=== PATIENT | male | born 1940 | race Caucasian/White ===

== ENCOUNTER 2017-11-13 15:16 | Inpatient (IN) | payer MEDICARE, OTHER ==
[2017-11-13 15:43] LABS: MODE ROOM AIR; MetHgb Venous 0.3 %; Sample Type Blood venous; Site VENOUS LINE; Venous COHb 0.6 %; Venous Oxygen Sat 68.6 mmHG (55.0-75.0); Venous Total Hemglobin 15.6 g/dl
[2017-11-13 15:48] LABS: WHITE BLOOD COUNT 15.7 10^3/ul (4.8-10.8)
[2017-11-13 15:48] LABS: ABNORMAL IP MESSAGE 1; HEMATOCRIT 41.5 % (42.0-52.0); HEMOGLOBIN 14.5 g/dl (14.0-18.0); MEAN CORPUSCULAR HEMOGLOBIN 32.1 pg (29.0-33.0); MEAN CORPUSCULAR HGB CONC 34.9 g/dl (32.0-37.0); MEAN CORPUSCULAR VOLUME 91.8 fl (82.0-101.0); PLATELET COUNT 213 10^3/UL (140-415); POSITIVE DIFF @See below; RED BLOOD COUNT 4.52 10^6/ul (4.70-6.10); RED CELL DISTRIBUTION WIDTH 12.4 % (11.5-14.5)
[2017-11-13 15:50] LABS: ADD MAN DIFF? YES
[2017-11-13] MEDS: SOD CHLORIDE 0.9% 650 ML IV (16:02)
[2017-11-13 16:08] LABS: ALANINE AMINOTRANSFERASE 38 IU/L (13-69); ALBUMIN 4.6 g/dl (3.3-4.9); ALBUMIN/GLOBULIN RATIO 1.64; ALKALINE PHOSPHATASE 82 IU/L (42-121); ANION GAP 33 (8-16); ASPARTATE AMINO TRANSFERASE 28 IU/L (15-46); BILIRUBIN,INDIRECT 0.7 mg/dl (0-1.1); BILIRUBIN,TOTAL 0.7 mg/dl (0.2-1.3); BLOOD UREA NITROGEN 20 mg/dl (7-20); CALCIUM 9.2 mg/dl (8.4-10.2); CARBON DIOXIDE 13 mmol/L (21-31); CHLORIDE 87 mmol/L (97-110); CREATINE KINASE 45 IU/L (23-200); CREATININE 0.92 mg/dl (0.61-1.24); MAGNESIUM 1.6 mg/dl (1.7-2.5); PHOSPHORUS 4.4 mg/dl (2.5-4.9); POTASSIUM 4.6 mmol/L (3.5-5.1); SODIUM 128 mmol/L (135-144); TOTAL PROTEIN 7.4 g/dl (6.1-8.1)
[2017-11-13 16:13] LABS: BAND NEUTROPHILS #M 0.6 10^3/ul (0.0-0.6); BAND NEUTROPHILS % (M) 4 % (0-4); GIANT THROMBO% (M) 1 % (0-0); LYMPHOCYTES #M 0.6 10^3/ul (0.8-2.9); LYMPHOCYTES % (M) 4 % (15-51); MONOCYTE #M 0.3 10^3/ul (0.3-0.9); MONOCYTES % (M) 2 % (0-11); PLATELET ESTIMATE NORMAL; SEG NEUT #M 14.2 10^3/ul (1.6-7.5); SEGMENTED NEUTROPHILS (M) % 90 % (39-77); SMUDGE%M 5 % (0-0)
[2017-11-13 16:17] LABS: GLUCOSE 469 mg/dl (70-220)
[2017-11-13 16:18] LABS: TROPONIN-I < 0.010 ng/ml (0.000-0.120)
[2017-11-13] MEDS ORDERED: SODIUM CHLORIDE 23.4% 77 MEQ, POTASSIUM CHLORIDE 30 MEQ in DEXTROSE 10% 1,000 ML IV (17:01)
[2017-11-13] MEDS ORDERED: SODIUM CHLORIDE 23.4% 77 MEQ in DEXTROSE 10% 1,000 ML IV (17:01)
[2017-11-13] MEDS ORDERED: SODIUM CHLORIDE 23.4% 77 MEQ, POTASSIUM CHLORIDE 40 MEQ in DEXTROSE 10% 1,000 ML IV (17:01)
[2017-11-13] MEDS ORDERED: SOD CHLORIDE 0.9% 1,000 ML IV ×2 (17:01→18:34)
[2017-11-13] MEDS ORDERED: POTASSIUM CHLORIDE 40 MEQ in SOD CHLORIDE 0.9% 1,000 ML IV ×2 (17:01→18:34)
[2017-11-13] MEDS ORDERED: DEXTROSE 50% 50 ML SYRINGE IV ×4 (17:30→19:00)
[2017-11-13] MEDS ORDERED: ONDANSETRON 4 MG INJ (17:31)
[2017-11-13 17:42] LABS: ADD UMIC YES; UR ASCORBIC ACID NEGATIVE (NEGATIVE); UR BILIRUBIN (Dip) NEGATIVE (NEGATIVE); UR BLOOD (Dip) 1+ mg/dL (NEGATIVE); UR CLARITY CLEAR (CLEAR); UR COLOR STRAW (YELLOW); UR GLUCOSE (Dip) 3+ mg/dL (NEGATIVE); UR KETONES (Dip) 2+ mg/dL (NEGATIVE); UR LEUKOCYTE ESTERASE (Dip) NEGATIVE Leu/ul (NEGATIVE); UR NITRITE (Dip) NEGATIVE (NEGATIVE); UR RBC 0 /HPF (0-5); UR SPECIFIC GRAVITY (Dip) 1.021 (1.003-1.030); UR TOTAL PROTEIN (Dip) 1+ mg/dl (NEGATIVE); UR UROBILINOGEN (Dip) NEGATIVE (NEGATIVE); UR WBC 0 /HPF (0-5)
[2017-11-13] MEDS: LACTATED RINGER'S 630 ML IV (17:43)
[2017-11-13] MEDS: MAGNESIUM SULFATE 1 GM/D5W 100 ML IVPB (18:09)
[2017-11-13] MEDS: ONDANSETRON (ODT) 4 MG TAB ODT (18:10)
[2017-11-13] MEDS: INSULIN REGULAR, HUMAN 100 UNIT in SOD CHLORIDE 0.9% 100 ML IV (18:25)
[2017-11-13] MEDS ORDERED: morphine 2 MG INJ IV (18:30)
[2017-11-13] MEDS ORDERED: ACETAMINOPHEN 325 MG TAB PO (18:30)
[2017-11-13] MEDS ORDERED: NACL 0.9% 3 ML SYG IV (18:30)
[2017-11-13] MEDS ORDERED: VANCOMYCIN IV PER PHARMACY XX (19:00)
[2017-11-13] MEDS: ACCU-CHEK XX ×5 (19:00→23:28)
[2017-11-13 19:16] LABS: MODE ROOM AIR; Sample Type Blood venous; Site VENOUS LINE
[2017-11-13 19:24] LABS: MetHgb Venous 0.5 %; Venous COHb 0.4 %; Venous Oxygen Sat 59.5 mmHG (55.0-75.0); Venous Total Hemglobin 14.3 g/dl
[2017-11-13] MEDS: POTASSIUM CHLORIDE 30 MEQ in SOD CHLORIDE 0.9% 1,000 ML IV (19:33)
[2017-11-13 19:43] LABS: LIPASE 21 U/L (23-300)
[2017-11-13 19:44] LABS: ANION GAP 32 (8-16); BLOOD UREA NITROGEN 20 mg/dl (7-20); CALCIUM 8.3 mg/dl (8.4-10.2); CHLORIDE 90 mmol/L (97-110); CREATININE 0.87 mg/dl (0.61-1.24); MAGNESIUM 2.1 mg/dl (1.7-2.5); PHOSPHORUS 4.8 mg/dl (2.5-4.9); POTASSIUM 4.5 mmol/L (3.5-5.1); SODIUM 126 mmol/L (135-144)
[2017-11-13 19:44] LABS: LACTIC ACID 2.3 mmol/L (0.5-2.0)
[2017-11-13 19:56] LABS: CARBON DIOXIDE 9 mmol/L (21-31); GLUCOSE 602 mg/dl (70-220)
[2017-11-13] MEDS: SOD CHLORIDE 0.9% 500 ML IV (20:12)
[2017-11-13] MEDS: METOCLOPRAMIDE 10 MG INJ IV (20:40)
[2017-11-13] MEDS: PANTOPRAZOLE IV 80 MG in SOD CHLORIDE 0.9% 100 ML IVPB (20:49)
[2017-11-13 21:07] LABS: MODE ROOM AIR; MetHgb Venous 0.7 %; Sample Type Blood venous; Site VENOUS LINE; Venous COHb 0.3 %; Venous Fraction OxyHgb 57.4 %; Venous Total Hemglobin 9.7 g/dl
[2017-11-13] MEDS: PANTOPRAZOLE IV 80 MG in SOD CHLORIDE 0.9% 100 ML IV (21:27)
[2017-11-13 22:01] LABS: ANION GAP 22 (8-16); BLOOD UREA NITROGEN 17 mg/dl (7-20); CALCIUM 6.3 mg/dl (8.4-10.2); CHLORIDE 108 mmol/L (97-110); CREATININE 0.61 mg/dl (0.61-1.24); GLUCOSE 363 mg/dl (70-220); MAGNESIUM 1.5 mg/dl (1.7-2.5); PHOSPHORUS 3.2 mg/dl (2.5-4.9); POTASSIUM 3.5 mmol/L (3.5-5.1); SODIUM 133 mmol/L (135-144)
[2017-11-13 22:07] LABS: CARBON DIOXIDE 7 mmol/L (21-31)
[2017-11-13 22:13] LABS: HEMATOCRIT 42.5 % (42.0-52.0); HEMOGLOBIN 13.9 g/dl (14.0-18.0)
[2017-11-13] MEDS: SODIUM CHLORIDE 23.4% 77 MEQ, POTASSIUM CHLORIDE 30 MEQ in DEXTROSE 10% 1,000 ML IV (23:35)
[2017-11-13] MEDS: PIPER-TAZO 3.375 GM IV (PMX) 100 ML IVPB (23:49)
[2017-11-14] MEDS: ACCU-CHEK XX ×24 (00:06→23:00)
[2017-11-14 00:30] LABS: LIPASE 22 U/L (23-300)
[2017-11-14] MEDS: VANCOMYCIN 1 GM 250 ML IVPB ×3 (00:41→22:53)
[2017-11-14 02:08] LABS: ANION GAP 21 (8-16); BLOOD UREA NITROGEN 21 mg/dl (7-20); CALCIUM 7.9 mg/dl (8.4-10.2); CARBON DIOXIDE 11 mmol/L (21-31); CHLORIDE 105 mmol/L (97-110); CREATININE 0.75 mg/dl (0.61-1.24); GLUCOSE 297 mg/dl (70-220); MAGNESIUM 1.7 mg/dl (1.7-2.5); PHOSPHORUS 2.5 mg/dl (2.5-4.9); POTASSIUM 4.2 mmol/L (3.5-5.1); SODIUM 133 mmol/L (135-144)
[2017-11-14] MEDS: POTASSIUM CHLORIDE 30 MEQ in SOD CHLORIDE 0.9% 1,000 ML IV ×2 (02:36→12:25)
[2017-11-14] MEDS: PANTOPRAZOLE IV 80 MG in SOD CHLORIDE 0.9% 100 ML IV (04:39)
[2017-11-14] MEDS: LEVOTHYROXINE 100 MCG VIAL IV (05:35)
[2017-11-14] MEDS: PIPER-TAZO 3.375 GM IV (PMX) 100 ML IVPB ×3 (05:35→18:58)
[2017-11-14 05:37] LABS: ADD MAN DIFF? NO
[2017-11-14 05:51] LABS: WHITE BLOOD COUNT 16.6 10^3/ul (4.8-10.8)
[2017-11-14 05:51] LABS: BASOPHILS % 0.2 % (0.0-2.0); HEMATOCRIT 39.9 % (42.0-52.0); HEMOGLOBIN 13.4 g/dl (14.0-18.0); LYMPHOCYTES # 1.4 10^3/ul (0.8-2.9); LYMPHOCYTES % 8.2 % (15.0-51.0); MEAN CORPUSCULAR HEMOGLOBIN 31.1 pg (29.0-33.0); MEAN CORPUSCULAR HGB CONC 33.6 g/dl (32.0-37.0); MEAN CORPUSCULAR VOLUME 92.6 fl (82.0-101.0); MEAN PLATELET VOLUME 10.8 fl (7.4-10.4); MONOCYTE # 1.1 10^3/ul (0.3-0.9); MONOCYTES % 6.6 % (0.0-11.0); NEUTROPHIL # 13.9 10^3/ul (1.6-7.5); NEUTROPHILS % 83.8 % (39.0-77.0); PLATELET COUNT 182 10^3/UL (140-415); RED BLOOD COUNT 4.31 10^6/ul (4.70-6.10); RED CELL DISTRIBUTION WIDTH 12.1 % (11.5-14.5)
[2017-11-14 06:47] LABS: ALANINE AMINOTRANSFERASE 28 IU/L (13-69); ALBUMIN 3.4 g/dl (3.3-4.9); ALBUMIN/GLOBULIN RATIO 1.21; ALKALINE PHOSPHATASE 67 IU/L (42-121); ANION GAP 16 (8-16); ASPARTATE AMINO TRANSFERASE 26 IU/L (15-46); BILIRUBIN,INDIRECT 0.6 mg/dl (0-1.1); BILIRUBIN,TOTAL 0.6 mg/dl (0.2-1.3); BLOOD UREA NITROGEN 19 mg/dl (7-20); CALCIUM 8.1 mg/dl (8.4-10.2); CARBON DIOXIDE 16 mmol/L (21-31); CHLORIDE 107 mmol/L (97-110); CREATININE 0.71 mg/dl (0.61-1.24); GLUCOSE 265 mg/dl (70-220); MAGNESIUM 1.7 mg/dl (1.7-2.5); POTASSIUM 4.4 mmol/L (3.5-5.1); SODIUM 135 mmol/L (135-144); TOTAL PROTEIN 6.2 g/dl (6.1-8.1)
[2017-11-14] MEDS: SODIUM CHLORIDE 23.4% 77 MEQ, POTASSIUM CHLORIDE 30 MEQ in DEXTROSE 10% 1,000 ML IV ×3 (09:49→20:15)
[2017-11-14] MEDS: INSULIN REGULAR, HUMAN 100 UNIT in SOD CHLORIDE 0.9% 99 ML IV (09:53)
[2017-11-14] MEDS: SODIUM CHLORIDE 23.4% 77 MEQ in DEXTROSE 10% 1,000 ML IV (10:52)
[2017-11-14 11:48] LABS: ANION GAP 10 (8-16); BLOOD UREA NITROGEN 14 mg/dl (7-20); CALCIUM 7.5 mg/dl (8.4-10.2); CARBON DIOXIDE 18 mmol/L (21-31); CHLORIDE 108 mmol/L (97-110); CREATININE 0.63 mg/dl (0.61-1.24); GLUCOSE 149 mg/dl (70-220); MAGNESIUM 1.6 mg/dl (1.7-2.5); PHOSPHORUS 1.3 mg/dl (2.5-4.9); POTASSIUM 4.4 mmol/L (3.5-5.1); SODIUM 132 mmol/L (135-144)
[2017-11-14] MEDS: SUCRALFATE (100 MG/ML) 10ML CUP PO ×3 (13:00→21:42)
[2017-11-14] MEDS: MAGNESIUM SULFATE 2 GM/50 ML 50 ML IVPB (13:08)
[2017-11-14 13:55] LABS: ANION GAP 11 (8-16); BLOOD UREA NITROGEN 13 mg/dl (7-20); CALCIUM 7.3 mg/dl (8.4-10.2); CARBON DIOXIDE 18 mmol/L (21-31); CHLORIDE 107 mmol/L (97-110); CREATININE 0.59 mg/dl (0.61-1.24); GLUCOSE 189 mg/dl (70-220); MAGNESIUM 1.5 mg/dl (1.7-2.5); PHOSPHORUS 1.2 mg/dl (2.5-4.9); SODIUM 132 mmol/L (135-144)
[2017-11-14 15:22] LABS: AADO2 Venous 38.7 mmHg; MODE ROOM AIR; MetHgb Venous 0.1 %; Site OTHER; Venous COHb 0.8 %; Venous Fraction OxyHgb 95.7 %; Venous Oxygen Sat 96.6 mmHG (55.0-75.0); Venous Total Hemglobin 14.8 g/dl
[2017-11-14 15:47] LABS: Sample Type Blood venous
[2017-11-14] MEDS: PANTOPRAZOLE 40 MG INJ IV (18:31)
[2017-11-14 18:44] LABS: MODE ROOM AIR; MetHgb Venous 0.2 %; Sample Type Blood venous; Site OTHER; Venous COHb 1.1 %; Venous Fraction OxyHgb 63.4 %; Venous Total Hemglobin 14.1 g/dl
[2017-11-14 18:47] LABS: ANION GAP 12 (8-16); BLOOD UREA NITROGEN 10 mg/dl (7-20); CALCIUM 7.5 mg/dl (8.4-10.2); CARBON DIOXIDE 18 mmol/L (21-31); CHLORIDE 106 mmol/L (97-110); CREATININE 0.56 mg/dl (0.61-1.24); GLUCOSE 153 mg/dl (70-220); MAGNESIUM 1.9 mg/dl (1.7-2.5); PHOSPHORUS 1.2 mg/dl (2.5-4.9); POTASSIUM 5.5 mmol/L (3.5-5.1); SODIUM 130 mmol/L (135-144)
[2017-11-14 23:02] LABS: ANION GAP 13 (8-16); BLOOD UREA NITROGEN 7 mg/dl (7-20); CALCIUM 7.6 mg/dl (8.4-10.2); CARBON DIOXIDE 18 mmol/L (21-31); CHLORIDE 105 mmol/L (97-110); CREATININE 0.57 mg/dl (0.61-1.24); GLUCOSE 160 mg/dl (70-220); PHOSPHORUS 1.1 mg/dl (2.5-4.9); SODIUM 132 mmol/L (135-144)
[2017-11-15] MEDS: ACCU-CHEK XX ×23 (00:09→23:44)
[2017-11-15] MEDS: PIPER-TAZO 3.375 GM IV (PMX) 100 ML IVPB ×4 (00:13→18:07)
[2017-11-15 01:20] LABS: MODE ROOM AIR; MetHgb Venous 0.4 %; Sample Type Blood venous; Site Right Brachial; Venous COHb 0.3 %; Venous Fraction OxyHgb 50.6 %; Venous Total Hemglobin 14.8 g/dl
[2017-11-15 01:30] LABS: ANION GAP 12 (8-16); BLOOD UREA NITROGEN 5 mg/dl (7-20); CALCIUM 7.4 mg/dl (8.4-10.2); CARBON DIOXIDE 20 mmol/L (21-31); CHLORIDE 105 mmol/L (97-110); CREATININE 0.57 mg/dl (0.61-1.24); GLUCOSE 171 mg/dl (70-220); MAGNESIUM 1.9 mg/dl (1.7-2.5); PHOSPHORUS 0.9 mg/dl (2.5-4.9); POTASSIUM 4.2 mmol/L (3.5-5.1); SODIUM 133 mmol/L (135-144)
[2017-11-15] MEDS: SODIUM CHLORIDE 23.4% 77 MEQ, POTASSIUM CHLORIDE 40 MEQ in DEXTROSE 10% 1,000 ML IV (01:41)
[2017-11-15] MEDS: INSULIN REGULAR, HUMAN 100 UNIT in SOD CHLORIDE 0.9% 99 ML IV (01:45)
[2017-11-15] MEDS: SODIUM CHLORIDE 23.4% 77 MEQ, POTASSIUM CHLORIDE 30 MEQ in DEXTROSE 10% 1,000 ML IV ×2 (02:28→07:08)
[2017-11-15 05:06] LABS: MODE ROOM AIR; MetHgb Venous 0.3 %; Sample Type Blood venous; Site Right Brachial; Venous COHb 0.3 %; Venous Oxygen Sat 62.4 mmHG (55.0-75.0); Venous Total Hemglobin 14.3 g/dl
[2017-11-15 05:31] LABS: ADD MAN DIFF? NO
[2017-11-15 05:41] LABS: BASOPHILS % 0.1 % (0.0-2.0); EOSINOPHILS % 0.2 % (0.0-7.0); HEMATOCRIT 38.2 % (42.0-52.0); HEMOGLOBIN 13.3 g/dl (14.0-18.0); LYMPHOCYTES % 9.2 % (15.0-51.0); MEAN CORPUSCULAR HEMOGLOBIN 31.3 pg (29.0-33.0); MEAN CORPUSCULAR HGB CONC 34.8 g/dl (32.0-37.0); MEAN CORPUSCULAR VOLUME 89.9 fl (82.0-101.0); MEAN PLATELET VOLUME 10.7 fl (7.4-10.4); MONOCYTE # 0.8 10^3/ul (0.3-0.9); MONOCYTES % 6.9 % (0.0-11.0); PLATELET COUNT 171 10^3/UL (140-415); RED BLOOD COUNT 4.25 10^6/ul (4.70-6.10); RED CELL DISTRIBUTION WIDTH 12.5 % (11.5-14.5)
[2017-11-15 05:41] LABS: WHITE BLOOD COUNT 10.8 10^3/ul (4.8-10.8)
[2017-11-15] MEDS: LEVOTHYROXINE 100 MCG VIAL IV (05:56)
[2017-11-15] MEDS: PANTOPRAZOLE 40 MG INJ IV ×2 (05:56→18:06)
[2017-11-15 06:01] LABS: ANION GAP 12 (8-16); BLOOD UREA NITROGEN 5 mg/dl (7-20); CALCIUM 7.6 mg/dl (8.4-10.2); CARBON DIOXIDE 22 mmol/L (21-31); CHLORIDE 105 mmol/L (97-110); CREATININE 0.55 mg/dl (0.61-1.24); GLUCOSE 158 mg/dl (70-220); MAGNESIUM 1.8 mg/dl (1.7-2.5); PHOSPHORUS 0.8 mg/dl (2.5-4.9); POTASSIUM 3.9 mmol/L (3.5-5.1); SODIUM 135 mmol/L (135-144)
[2017-11-15] MEDS ORDERED: INSULIN HUMAN REGULAR 100 UNIT in SOD CHLORIDE 0.9% 99 ML IV (09:00)
[2017-11-15] MEDS ORDERED: DEXTROSE 50% 50 ML SYRINGE IV ×4 (09:00→10:30)
[2017-11-15] MEDS: SUCRALFATE (100 MG/ML) 10ML CUP PO ×4 (09:11→20:03)
[2017-11-15] MEDS: DEXTROSE 5%-0.45% NACL 1,000 ML IV ×2 (09:56→20:07)
[2017-11-15 11:10] LABS: VANCOMYCIN,TROUGH 12.2 ug/ml (10.0-20.0)
[2017-11-15] MEDS: INSULIN HUMAN REGULAR 100 UNIT in SOD CHLORIDE 0.9% 99 ML IV (11:28)
[2017-11-15] MEDS: VANCOMYCIN 1 GM 250 ML IVPB ×2 (11:58→22:42)
[2017-11-16] MEDS: ACCU-CHEK XX ×15 (00:30→14:20)
[2017-11-16] MEDS: PIPER-TAZO 3.375 GM IV (PMX) 100 ML IVPB ×3 (00:31→14:20)
[2017-11-16] MEDS: PANTOPRAZOLE 40 MG INJ IV ×2 (05:16→18:02)
[2017-11-16] MEDS: LEVOTHYROXINE 100 MCG VIAL IV (05:16)
[2017-11-16] MEDS: DEXTROSE 5%-0.45% NACL 1,000 ML IV (05:20)
[2017-11-16 06:00] LABS: ADD MAN DIFF? NO
[2017-11-16 06:22] LABS: BASOPHILS % 0.3 % (0.0-2.0); EOSINOPHILS # 0.1 10^3/ul (0.0-0.5); EOSINOPHILS % 1.2 % (0.0-7.0); HEMATOCRIT 34.1 % (42.0-52.0); LYMPHOCYTES # 1.5 10^3/ul (0.8-2.9); LYMPHOCYTES % 19.8 % (15.0-51.0); MEAN CORPUSCULAR HEMOGLOBIN 30.7 pg (29.0-33.0); MEAN CORPUSCULAR HGB CONC 35.2 g/dl (32.0-37.0); MEAN CORPUSCULAR VOLUME 87.2 fl (82.0-101.0); MEAN PLATELET VOLUME 11.1 fl (7.4-10.4); MONOCYTE # 0.7 10^3/ul (0.3-0.9); MONOCYTES % 9.3 % (0.0-11.0); NEUTROPHIL # 5.1 10^3/ul (1.6-7.5); PLATELET COUNT 159 10^3/UL (140-415); RED BLOOD COUNT 3.91 10^6/ul (4.70-6.10)
[2017-11-16 06:22] LABS: WHITE BLOOD COUNT 7.3 10^3/ul (4.8-10.8)
[2017-11-16 06:40] LABS: ANION GAP 8 (8-16); BLOOD UREA NITROGEN 3 mg/dl (7-20); CALCIUM 7.2 mg/dl (8.4-10.2); CARBON DIOXIDE 25 mmol/L (21-31); CHLORIDE 106 mmol/L (97-110); GLUCOSE 143 mg/dl (70-220); MAGNESIUM 1.5 mg/dl (1.7-2.5); PHOSPHORUS 0.8 mg/dl (2.5-4.9); SODIUM 136 mmol/L (135-144)
[2017-11-16 07:12] LABS: POTASSIUM 2.9 mmol/L (3.5-5.1)
[2017-11-16] MEDS: SUCRALFATE (100 MG/ML) 10ML CUP PO ×4 (08:37→20:09)
[2017-11-16] MEDS: POTASSIUM CHLORIDE 50 ML IVPB (08:38)
[2017-11-16] MEDS: HYDROCODONE/APAP (5/325) TAB PO ×2 (08:46→23:17)
[2017-11-16] MEDS: POTASSIUM CHLORIDE 100 ML IVPB ×3 (08:59→14:19)
[2017-11-16] MEDS: VANCOMYCIN 1 GM 250 ML IVPB ×2 (11:33→23:02)
[2017-11-16] MEDS: INSULIN GLARGINE [LANTus] (100 UNITS/ML) SYG SC (13:16)
[2017-11-16] MEDS: CEFTRIAXONE 1 GM/50 ML (PMX) 50 ML IVPB (16:13)
[2017-11-16] MEDS: INSULIN ASPART [NOVOLOG] 3 ML PEN SC ×2 (20:00→20:39)
[2017-11-16] MEDS: ONDANSETRON 4 MG INJ IV (20:09)
[2017-11-16 21:31] LABS: ANION GAP 7 (8-16); BLOOD UREA NITROGEN 5 mg/dl (7-20); CALCIUM 7.8 mg/dl (8.4-10.2); CARBON DIOXIDE 26 mmol/L (21-31); CHLORIDE 108 mmol/L (97-110); CREATININE 0.83 mg/dl (0.61-1.24); GLUCOSE 160 mg/dl (70-220); POTASSIUM 3.8 mmol/L (3.5-5.1); SODIUM 137 mmol/L (135-144)
[2017-11-17] MEDS: ONDANSETRON 4 MG INJ IV (03:54)
[2017-11-17 05:08] LABS: ADD MAN DIFF? NO
[2017-11-17 05:09] LABS: BASOPHILS % 0.3 % (0.0-2.0); EOSINOPHILS # 0.1 10^3/ul (0.0-0.5); EOSINOPHILS % 1.3 % (0.0-7.0); HEMATOCRIT 36.3 % (42.0-52.0); HEMOGLOBIN 12.5 g/dl (14.0-18.0); LYMPHOCYTES # 1.3 10^3/ul (0.8-2.9); LYMPHOCYTES % 18.3 % (15.0-51.0); MEAN CORPUSCULAR HEMOGLOBIN 31.2 pg (29.0-33.0); MEAN CORPUSCULAR HGB CONC 34.4 g/dl (32.0-37.0); MEAN CORPUSCULAR VOLUME 90.5 fl (82.0-101.0); MEAN PLATELET VOLUME 10.6 fl (7.4-10.4); MONOCYTE # 0.8 10^3/ul (0.3-0.9); NEUTROPHIL # 4.8 10^3/ul (1.6-7.5); NEUTROPHILS % 68.7 % (39.0-77.0); PLATELET COUNT 152 10^3/UL (140-415); RED BLOOD COUNT 4.01 10^6/ul (4.70-6.10); RED CELL DISTRIBUTION WIDTH 13.3 % (11.5-14.5)
[2017-11-17] MEDS: PANTOPRAZOLE 40 MG INJ IV ×2 (06:00→17:23)
[2017-11-17] MEDS: LEVOTHYROXINE 100 MCG VIAL IV (06:00)
[2017-11-17 06:12] LABS: ALBUMIN 2.8 g/dl (3.3-4.9); ANION GAP 9 (8-16); BLOOD UREA NITROGEN 8 mg/dl (7-20); CALCIUM 7.8 mg/dl (8.4-10.2); CARBON DIOXIDE 26 mmol/L (21-31); CHLORIDE 110 mmol/L (97-110); CREATININE 1.06 mg/dl (0.61-1.24); GLUCOSE 202 mg/dl (70-220); MAGNESIUM 1.5 mg/dl (1.7-2.5); PHOSPHORUS 1.7 mg/dl (2.5-4.9); POTASSIUM 4.2 mmol/L (3.5-5.1); SODIUM 141 mmol/L (135-144)
[2017-11-17] MEDS: INSULIN ASPART [NOVOLOG] 3 ML PEN SC ×5 (07:35→21:00)
[2017-11-17] MEDS: SUCRALFATE (100 MG/ML) 10ML CUP PO ×4 (08:28→22:50)
[2017-11-17] MEDS: INSULIN GLARGINE [LANTus] (100 UNITS/ML) SYG SC ×2 (08:34→21:32)
[2017-11-17] MEDS: HYDROCODONE/APAP (5/325) TAB PO ×2 (08:54→19:17)
[2017-11-17] MEDS: MAGNESIUM OXIDE 400 MG TAB PO (08:55)
[2017-11-17] MEDS: BISACODYL (EC) 5 MG TAB PO (08:55)
[2017-11-17] MEDS: DOCUSATE SODIUM 100 MG CAP PO (08:55)
[2017-11-17] MEDS: NEUTRA-PHOS 250 MG PACKET PO (08:56)
[2017-11-17] MEDS: VANCOMYCIN 1 GM 250 ML IVPB (10:47)
[2017-11-17] MEDS: CEFTRIAXONE 1 GM/50 ML (PMX) 50 ML IVPB (14:36)
[2017-11-17] MEDS ORDERED: GLUCOSE GEL 15 GRAM TUBE PO ×2 (16:00)
[2017-11-17] MEDS ORDERED: GLUCOSE GEL 15 GRAM TUBE BUCCAL (16:00)
[2017-11-17] MEDS ORDERED: GLUCAGON 1 MG INJ IM (16:00)
[2017-11-17] MEDS ORDERED: DEXTROSE 50% 50 ML SYRINGE IV ×2 (16:00)
[2017-11-17] MEDS: MAGNESIUM HYDROXIDE 30ML CUP PO (21:22)
[2017-11-18] MEDS: PANTOPRAZOLE 40 MG INJ IV ×2 (05:40→17:14)
[2017-11-18] MEDS: HYDROCODONE/APAP (5/325) TAB PO ×2 (05:40→22:18)
[2017-11-18] MEDS: LEVOTHYROXINE 100 MCG VIAL IV (05:41)
[2017-11-18 05:47] LABS: ADD MAN DIFF? NO
[2017-11-18 06:00] LABS: BASOPHILS % 0.3 % (0.0-2.0); EOSINOPHILS # 0.2 10^3/ul (0.0-0.5); EOSINOPHILS % 2.8 % (0.0-7.0); HEMATOCRIT 35.6 % (42.0-52.0); HEMOGLOBIN 12.1 g/dl (14.0-18.0); LYMPHOCYTES # 1.7 10^3/ul (0.8-2.9); LYMPHOCYTES % 25.4 % (15.0-51.0); MEAN CORPUSCULAR HEMOGLOBIN 30.7 pg (29.0-33.0); MEAN CORPUSCULAR VOLUME 90.4 fl (82.0-101.0); MEAN PLATELET VOLUME 10.2 fl (7.4-10.4); MONOCYTE # 0.8 10^3/ul (0.3-0.9); MONOCYTES % 11.6 % (0.0-11.0); NEUTROPHILS % 59.3 % (39.0-77.0); PLATELET COUNT 179 10^3/UL (140-415); RED BLOOD COUNT 3.94 10^6/ul (4.70-6.10); RED CELL DISTRIBUTION WIDTH 13.3 % (11.5-14.5)
[2017-11-18 06:00] LABS: WHITE BLOOD COUNT 6.7 10^3/ul (4.8-10.8)
[2017-11-18 06:26] LABS: ALBUMIN 2.9 g/dl (3.3-4.9); ANION GAP 7 (8-16); BLOOD UREA NITROGEN 14 mg/dl (7-20); CALCIUM 7.9 mg/dl (8.4-10.2); CARBON DIOXIDE 28 mmol/L (21-31); CHLORIDE 108 mmol/L (97-110); CREATININE 1.67 mg/dl (0.61-1.24); GLUCOSE 94 mg/dl (70-220); MAGNESIUM 1.7 mg/dl (1.7-2.5); PHOSPHORUS 2.5 mg/dl (2.5-4.9); POTASSIUM 3.3 mmol/L (3.5-5.1); SODIUM 140 mmol/L (135-144)
[2017-11-18] MEDS: INSULIN ASPART [NOVOLOG] 3 ML PEN SC ×4 (07:57→21:00)
[2017-11-18] MEDS: POTASSIUM CHLORIDE (SR) 20 MEQ TAB PO (09:43)
[2017-11-18] MEDS: SUCRALFATE (100 MG/ML) 10ML CUP PO ×4 (09:43→22:18)
[2017-11-18] MEDS: SOD CHLORIDE 0.9% 500 ML IV (10:17)
[2017-11-19] MEDS: LEVOTHYROXINE 100 MCG VIAL IV (05:48)
[2017-11-19] MEDS: PANTOPRAZOLE 40 MG INJ IV ×2 (05:48→17:07)
[2017-11-19] MEDS: HYDROCODONE/APAP (5/325) TAB PO (05:52)
[2017-11-19 06:23] LABS: WHITE BLOOD COUNT 5.4 10^3/ul (4.8-10.8)
[2017-11-19 06:23] LABS: ADD MAN DIFF? NO; BASOPHILS % 0.2 % (0.0-2.0); EOSINOPHILS # 0.2 10^3/ul (0.0-0.5); EOSINOPHILS % 2.8 % (0.0-7.0); HEMATOCRIT 33.8 % (42.0-52.0); HEMOGLOBIN 11.4 g/dl (14.0-18.0); LYMPHOCYTES # 1.5 10^3/ul (0.8-2.9); LYMPHOCYTES % 27.8 % (15.0-51.0); MEAN CORPUSCULAR HEMOGLOBIN 30.6 pg (29.0-33.0); MEAN CORPUSCULAR HGB CONC 33.7 g/dl (32.0-37.0); MEAN CORPUSCULAR VOLUME 90.6 fl (82.0-101.0); MEAN PLATELET VOLUME 10.4 fl (7.4-10.4); MONOCYTE # 0.8 10^3/ul (0.3-0.9); MONOCYTES % 15.6 % (0.0-11.0); NEUTROPHIL # 2.9 10^3/ul (1.6-7.5); NEUTROPHILS % 53.2 % (39.0-77.0); PLATELET COUNT 172 10^3/UL (140-415); RED BLOOD COUNT 3.73 10^6/ul (4.70-6.10); RED CELL DISTRIBUTION WIDTH 13.4 % (11.5-14.5)
[2017-11-19 06:45] LABS: ALBUMIN 2.8 g/dl (3.3-4.9); ANION GAP 9 (8-16); BLOOD UREA NITROGEN 16 mg/dl (7-20); CARBON DIOXIDE 28 mmol/L (21-31); CHLORIDE 105 mmol/L (97-110); CREATININE 1.96 mg/dl (0.61-1.24); GLUCOSE 172 mg/dl (70-220); MAGNESIUM 1.7 mg/dl (1.7-2.5); PHOSPHORUS 2.4 mg/dl (2.5-4.9); SODIUM 138 mmol/L (135-144)
[2017-11-19] MEDS: SUCRALFATE (100 MG/ML) 10ML CUP PO ×4 (08:24→20:14)
[2017-11-19] MEDS: INSULIN GLARGINE [LANTus] (100 UNITS/ML) SYG SC (08:28)
[2017-11-19] MEDS: INSULIN ASP PROT/ASPART (70/30) PEN SC (08:28)
[2017-11-19] MEDS: INSULIN ASPART [NOVOLOG] 3 ML PEN SC ×4 (08:29→20:14)
[2017-11-19] MEDS: SOD CHLORIDE 0.9% 1,000 ML IV ×2 (12:05→22:13)
[2017-11-19 12:40] LABS: MODE ROOM AIR; MetHgb Venous 0.4 %; Sample Type Blood venous; Site VENOUS LINE; Venous COHb 0.6 %; Venous Fraction OxyHgb 61.5 %; Venous Oxygen Sat 62.1 mmHG (55.0-75.0)
[2017-11-20] MEDS: LEVOTHYROXINE 100 MCG VIAL IV (05:40)
[2017-11-20] MEDS: PANTOPRAZOLE 40 MG INJ IV ×2 (05:41→17:32)
[2017-11-20 05:49] LABS: ADD MAN DIFF? NO
[2017-11-20 06:12] LABS: BASOPHILS % 0.2 % (0.0-2.0); EOSINOPHILS # 0.1 10^3/ul (0.0-0.5); EOSINOPHILS % 1.4 % (0.0-7.0); HEMOGLOBIN 11.6 g/dl (14.0-18.0); LYMPHOCYTES # 1.3 10^3/ul (0.8-2.9); LYMPHOCYTES % 21.1 % (15.0-51.0); MEAN CORPUSCULAR HEMOGLOBIN 30.6 pg (29.0-33.0); MEAN CORPUSCULAR HGB CONC 33.1 g/dl (32.0-37.0); MEAN CORPUSCULAR VOLUME 92.3 fl (82.0-101.0); MEAN PLATELET VOLUME 9.9 fl (7.4-10.4); MONOCYTE # 1.1 10^3/ul (0.3-0.9); MONOCYTES % 17.2 % (0.0-11.0); NEUTROPHIL # 3.7 10^3/ul (1.6-7.5); NEUTROPHILS % 59.5 % (39.0-77.0); PLATELET COUNT 184 10^3/UL (140-415); RED BLOOD COUNT 3.79 10^6/ul (4.70-6.10); RED CELL DISTRIBUTION WIDTH 13.4 % (11.5-14.5)
[2017-11-20 06:12] LABS: WHITE BLOOD COUNT 6.2 10^3/ul (4.8-10.8)
[2017-11-20 06:46] LABS: ANION GAP 11 (8-16); BLOOD UREA NITROGEN 17 mg/dl (7-20); CALCIUM 8.1 mg/dl (8.4-10.2); CARBON DIOXIDE 27 mmol/L (21-31); CHLORIDE 106 mmol/L (97-110); CREATININE 1.94 mg/dl (0.61-1.24); GLUCOSE 99 mg/dl (70-220); MAGNESIUM 1.6 mg/dl (1.7-2.5); PHOSPHORUS 2.4 mg/dl (2.5-4.9); POTASSIUM 3.6 mmol/L (3.5-5.1); SODIUM 140 mmol/L (135-144)
[2017-11-20] MEDS: INSULIN ASPART [NOVOLOG] 3 ML PEN SC ×4 (08:00→21:00)
[2017-11-20] MEDS: SUCRALFATE (100 MG/ML) 10ML CUP PO ×4 (08:27→21:38)
[2017-11-20] MEDS: INSULIN GLARGINE [LANTus] (100 UNITS/ML) SYG SC (08:30)
[2017-11-20] MEDS: INSULIN ASP PROT/ASPART (70/30) PEN SC (08:32)
[2017-11-20] MEDS: POTASSIUM CHLORIDE (SR) 20 MEQ TAB PO (09:18)
[2017-11-20] MEDS: MAGNESIUM OXIDE 400 MG TAB PO (09:30)
[2017-11-20] MEDS: SOD CHLORIDE 0.9% 1,000 ML IV ×2 (10:52→21:39)
[2017-11-20] MEDS ORDERED: morphine LIQ (10 MG/5 ML) CUP PO (15:00)
[2017-11-20] MEDS: HYDROCODONE/APAP (5/325) TAB PO (21:45)
[2017-11-21] MEDS: LEVOTHYROXINE 100 MCG VIAL IV (05:53)
[2017-11-21] MEDS: PANTOPRAZOLE 40 MG INJ IV (05:53)
[2017-11-21 06:05] LABS: ADD MAN DIFF? NO
[2017-11-21 06:09] LABS: WHITE BLOOD COUNT 5.6 10^3/ul (4.8-10.8)
[2017-11-21 06:09] LABS: BASOPHILS % 0.4 % (0.0-2.0); EOSINOPHILS # 0.1 10^3/ul (0.0-0.5); EOSINOPHILS % 1.1 % (0.0-7.0); HEMATOCRIT 36.1 % (42.0-52.0); IMMATURE GRANS #M 0.02 10^3/ul; IMMATURE GRANS % (M) 0.4 %; LYMPHOCYTES # 1.4 10^3/ul (0.8-2.9); LYMPHOCYTES % 25.5 % (15.0-51.0); MEAN CORPUSCULAR HEMOGLOBIN 30.8 pg (29.0-33.0); MEAN CORPUSCULAR HGB CONC 33.2 g/dl (32.0-37.0); MEAN CORPUSCULAR VOLUME 92.6 fl (82.0-101.0); MEAN PLATELET VOLUME 9.7 fl (7.4-10.4); MONOCYTE # 0.9 10^3/ul (0.3-0.9); MONOCYTES % 15.4 % (0.0-11.0); NEUTROPHIL # 3.2 10^3/ul (1.6-7.5); NEUTROPHILS % 57.2 % (39.0-77.0); PLATELET COUNT 214 10^3/UL (140-415); RED CELL DISTRIBUTION WIDTH 13.3 % (11.5-14.5)
[2017-11-21 06:44] LABS: ALBUMIN 3.2 g/dl (3.3-4.9); ANION GAP 10 (8-16); BLOOD UREA NITROGEN 16 mg/dl (7-20); CALCIUM 8.1 mg/dl (8.4-10.2); CARBON DIOXIDE 30 mmol/L (21-31); CHLORIDE 103 mmol/L (97-110); CREATININE 1.96 mg/dl (0.61-1.24); GLUCOSE 186 mg/dl (70-220); MAGNESIUM 1.6 mg/dl (1.7-2.5); PHOSPHORUS 2.5 mg/dl (2.5-4.9); SODIUM 139 mmol/L (135-144)
[2017-11-21] MEDS: INSULIN ASPART [NOVOLOG] 3 ML PEN SC ×5 (08:22→23:47)
[2017-11-21] MEDS: SUCRALFATE (100 MG/ML) 10ML CUP PO ×4 (08:40→20:29)
[2017-11-21] MEDS: MAGNESIUM OXIDE 400 MG TAB PO (08:53)
[2017-11-21] MEDS: INSULIN ASP PROT/ASPART (70/30) PEN SC (09:31)
[2017-11-21] MEDS: INSULIN GLARGINE [LANTus] (100 UNITS/ML) SYG SC (09:50)
[2017-11-21] MEDS: SOD CHLORIDE 0.9% 1,000 ML IV ×3 (11:18→23:53)
[2017-11-21 14:09] LABS: ADD UMIC NO; UR ASCORBIC ACID NEGATIVE (NEGATIVE); UR BILIRUBIN (Dip) NEGATIVE (NEGATIVE); UR BLOOD (Dip) NEGATIVE (NEGATIVE); UR CLARITY CLEAR (CLEAR); UR COLOR COLORLESS (YELLOW); UR GLUCOSE (Dip) 1+ mg/dL (NEGATIVE); UR KETONES (Dip) NEGATIVE (NEGATIVE); UR LEUKOCYTE ESTERASE (Dip) NEGATIVE Leu/ul (NEGATIVE); UR NITRITE (Dip) NEGATIVE (NEGATIVE); UR SPECIFIC GRAVITY (Dip) 1.003 (1.003-1.030); UR TOTAL PROTEIN (Dip) NEGATIVE (NEGATIVE); UR UROBILINOGEN (Dip) NEGATIVE (NEGATIVE)
[2017-11-21 14:12] LABS: SODIUM,URINE RANDOM 72 mmol/L (30-90)
[2017-11-21 14:12] LABS: POTASSIUM,URINE RANDOM 12.7 mmol/L (25-125)
[2017-11-21 14:18] LABS: CREATININE,URINE RANDOM 13.97 mg/dl (20-370)
[2017-11-21] MEDS: PANTOPRAZOLE (EC) 40 MG TAB PO (17:25)
[2017-11-22] MEDS: PANTOPRAZOLE (EC) 40 MG TAB PO ×2 (05:32→17:39)
[2017-11-22] MEDS: LEVOTHYROXINE 100 MCG VIAL IV (05:32)
[2017-11-22 05:44] LABS: ADD MAN DIFF? NO
[2017-11-22 05:46] LABS: BASOPHILS % 0.3 % (0.0-2.0); EOSINOPHILS # 0.1 10^3/ul (0.0-0.5); EOSINOPHILS % 0.8 % (0.0-7.0); HEMATOCRIT 32.7 % (42.0-52.0); HEMOGLOBIN 11.2 g/dl (14.0-18.0); IMMATURE GRANS #M 0.03 10^3/ul; IMMATURE GRANS % (M) 0.4 %; LYMPHOCYTES # 1.3 10^3/ul (0.8-2.9); LYMPHOCYTES % 16.8 % (15.0-51.0); MEAN CORPUSCULAR HEMOGLOBIN 31.3 pg (29.0-33.0); MEAN CORPUSCULAR HGB CONC 34.3 g/dl (32.0-37.0); MEAN CORPUSCULAR VOLUME 91.3 fl (82.0-101.0); MEAN PLATELET VOLUME 9.3 fl (7.4-10.4); MONOCYTE # 0.9 10^3/ul (0.3-0.9); MONOCYTES % 11.9 % (0.0-11.0); NEUTROPHIL # 5.5 10^3/ul (1.6-7.5); NEUTROPHILS % 69.8 % (39.0-77.0); PLATELET COUNT 204 10^3/UL (140-415); RED BLOOD COUNT 3.58 10^6/ul (4.70-6.10); RED CELL DISTRIBUTION WIDTH 13.1 % (11.5-14.5)
[2017-11-22 05:46] LABS: WHITE BLOOD COUNT 7.9 10^3/ul (4.8-10.8)
[2017-11-22 06:14] LABS: ALBUMIN 2.9 g/dl (3.3-4.9); ANION GAP 13 (8-16); BLOOD UREA NITROGEN 15 mg/dl (7-20); CALCIUM 7.7 mg/dl (8.4-10.2); CARBON DIOXIDE 26 mmol/L (21-31); CHLORIDE 103 mmol/L (97-110); CREATININE 1.76 mg/dl (0.61-1.24); GLUCOSE 179 mg/dl (70-220); MAGNESIUM 1.4 mg/dl (1.7-2.5); PHOSPHORUS 3.1 mg/dl (2.5-4.9); POTASSIUM 3.2 mmol/L (3.5-5.1); SODIUM 139 mmol/L (135-144)
[2017-11-22] MEDS: SOD CHLORIDE 0.9% 1,000 ML IV ×3 (06:56→21:15)
[2017-11-22] MEDS: INSULIN ASP PROT/ASPART (70/30) PEN SC (07:16)
[2017-11-22] MEDS: INSULIN ASPART [NOVOLOG] 3 ML PEN SC ×4 (08:05→21:00)
[2017-11-22] MEDS: INSULIN GLARGINE [LANTus] (100 UNITS/ML) SYG SC (08:05)
[2017-11-22] MEDS: SUCRALFATE (100 MG/ML) 10ML CUP PO ×4 (08:12→20:37)
[2017-11-22] MEDS: POTASSIUM CHLORIDE (SR) 20 MEQ TAB PO ×2 (09:55→12:27)
[2017-11-22] MEDS: MAGNESIUM OXIDE 400 MG TAB PO (09:55)
[2017-11-23] MEDS: LEVOTHYROXINE 25 MCG TAB PO (05:42)
[2017-11-23] MEDS: PANTOPRAZOLE (EC) 40 MG TAB PO ×2 (05:42→17:39)
[2017-11-23] MEDS: HYDROCODONE/APAP (5/325) TAB PO ×2 (05:48→21:27)
[2017-11-23 05:51] LABS: ADD MAN DIFF? NO
[2017-11-23 05:59] LABS: BASOPHILS % 0.3 % (0.0-2.0); EOSINOPHILS # 0.1 10^3/ul (0.0-0.5); EOSINOPHILS % 1.4 % (0.0-7.0); HEMATOCRIT 32.3 % (42.0-52.0); HEMOGLOBIN 10.8 g/dl (14.0-18.0); IMMATURE GRANS #M 0.04 10^3/ul; IMMATURE GRANS % (M) 0.5 %; LYMPHOCYTES # 1.9 10^3/ul (0.8-2.9); LYMPHOCYTES % 25.5 % (15.0-51.0); MEAN CORPUSCULAR HEMOGLOBIN 30.9 pg (29.0-33.0); MEAN CORPUSCULAR HGB CONC 33.4 g/dl (32.0-37.0); MEAN CORPUSCULAR VOLUME 92.3 fl (82.0-101.0); MEAN PLATELET VOLUME 9.7 fl (7.4-10.4); MONOCYTE # 0.7 10^3/ul (0.3-0.9); MONOCYTES % 9.6 % (0.0-11.0); NEUTROPHIL # 4.6 10^3/ul (1.6-7.5); NEUTROPHILS % 62.7 % (39.0-77.0); PLATELET COUNT 218 10^3/UL (140-415); RED CELL DISTRIBUTION WIDTH 13.2 % (11.5-14.5)
[2017-11-23 05:59] LABS: WHITE BLOOD COUNT 7.3 10^3/ul (4.8-10.8)
[2017-11-23 06:35] LABS: ALBUMIN 2.7 g/dl (3.3-4.9); ANION GAP 11 (8-16); BLOOD UREA NITROGEN 12 mg/dl (7-20); CALCIUM 7.5 mg/dl (8.4-10.2); CARBON DIOXIDE 26 mmol/L (21-31); CHLORIDE 107 mmol/L (97-110); GLUCOSE 96 mg/dl (70-220); MAGNESIUM 1.3 mg/dl (1.7-2.5); PHOSPHORUS 2.6 mg/dl (2.5-4.9); POTASSIUM 3.1 mmol/L (3.5-5.1); SODIUM 141 mmol/L (135-144)
[2017-11-23] MEDS: SOD CHLORIDE 0.9% 1,000 ML IV ×2 (06:54→12:16)
[2017-11-23] MEDS: INSULIN ASP PROT/ASPART (70/30) PEN SC ×2 (07:00→08:04)
[2017-11-23] MEDS: INSULIN ASPART [NOVOLOG] 3 ML PEN SC ×6 (08:00→21:00)
[2017-11-23] MEDS: MAGNESIUM SULFATE 3 GM in DEXTROSE 5% 100 ML IVPB (08:17)
[2017-11-23] MEDS: SUCRALFATE (100 MG/ML) 10ML CUP PO ×4 (08:18→21:28)
[2017-11-23] MEDS: POTASSIUM CHLORIDE (SR) 20 MEQ TAB PO (08:18)
[2017-11-23] MEDS: INSULIN GLARGINE [LANTus] (100 UNITS/ML) SYG SC (08:30)
[2017-11-23] MEDS: hydrALAzine 20 MG INJ IV (11:22)
[2017-11-23] MEDS ORDERED: EZETIMIBE 10 MG TAB PO (21:00)
[2017-11-23] MEDS: ATORVASTATIN 80 MG TAB PO (21:28)
[2017-11-23] MEDS: TERAZOSIN 5 MG CAP PO (21:28)
[2017-11-24] MEDS: SOD CHLORIDE 0.9% 1,000 ML IV ×2 (00:12→08:46)
[2017-11-24 06:14] LABS: ADD MAN DIFF? NO
[2017-11-24] MEDS: LEVOTHYROXINE 25 MCG TAB PO (06:17)
[2017-11-24] MEDS: PANTOPRAZOLE (EC) 40 MG TAB PO ×2 (06:17→17:29)
[2017-11-24 06:19] LABS: BASOPHILS % 0.3 % (0.0-2.0); EOSINOPHILS # 0.1 10^3/ul (0.0-0.5); EOSINOPHILS % 1.7 % (0.0-7.0); HEMATOCRIT 31.2 % (42.0-52.0); HEMOGLOBIN 10.3 g/dl (14.0-18.0); IMMATURE GRANS #M 0.03 10^3/ul; IMMATURE GRANS % (M) 0.5 %; LYMPHOCYTES # 1.8 10^3/ul (0.8-2.9); LYMPHOCYTES % 29.9 % (15.0-51.0); MEAN CORPUSCULAR HEMOGLOBIN 30.7 pg (29.0-33.0); MEAN CORPUSCULAR VOLUME 92.9 fl (82.0-101.0); MEAN PLATELET VOLUME 9.7 fl (7.4-10.4); MONOCYTE # 0.5 10^3/ul (0.3-0.9); MONOCYTES % 8.9 % (0.0-11.0); NEUTROPHIL # 3.5 10^3/ul (1.6-7.5); NEUTROPHILS % 58.7 % (39.0-77.0); PLATELET COUNT 219 10^3/UL (140-415); RED BLOOD COUNT 3.36 10^6/ul (4.70-6.10); RED CELL DISTRIBUTION WIDTH 13.2 % (11.5-14.5)
[2017-11-24 06:54] LABS: ALBUMIN 2.6 g/dl (3.3-4.9); ANION GAP 11 (8-16); BLOOD UREA NITROGEN 12 mg/dl (7-20); CALCIUM 7.6 mg/dl (8.4-10.2); CARBON DIOXIDE 27 mmol/L (21-31); CHLORIDE 106 mmol/L (97-110); CREATININE 1.55 mg/dl (0.61-1.24); GLUCOSE 142 mg/dl (70-220); POTASSIUM 3.7 mmol/L (3.5-5.1); SODIUM 140 mmol/L (135-144)
[2017-11-24] MEDS: INSULIN ASPART [NOVOLOG] 3 ML PEN SC ×6 (08:02→17:30)
[2017-11-24] MEDS: SUCRALFATE (100 MG/ML) 10ML CUP PO ×3 (08:46→16:33)
[2017-11-24] MEDS: DUTASTERIDE 0.5 MG CAP PO (08:46)
[2017-11-24] MEDS: INSULIN GLARGINE [LANTus] (100 UNITS/ML) SYG SC (08:59)
[2017-11-24] MEDS ORDERED: EMPAGLIFLOZIN 10 MG TABLET PO (09:00)
[2017-11-24] MEDS: PREGABALIN 75 MG CAP PO (09:15)
== END 2017-11-24 17:26 | DRG 871 ==
LOC: ICU 17:54 → 6WM 11-17 15:57 → E/R 15:16
PROC: 4A133R1 Monitoring of Arterial Saturation, Peripheral, Percutaneous Approach (ICD-10-PCS; principal; 2017-11-13)
DX: A41.9 Sepsis, unspecified organism (principal); E11.10 Type 2 diabetes mellitus with ketoacidosis without coma; R65.21 Severe sepsis with septic shock; K92.0 Hematemesis; E87.2 Acidosis; N17.9 Acute kidney failure, unspecified; M86.671 Other chronic osteomyelitis, right ankle and foot; E78.5 Hyperlipidemia, unspecified; K21.0 Gastro-esophageal reflux disease with esophagitis; E11.43 Type 2 diabetes mellitus with diabetic autonomic (poly)neuropathy; K31.84 Gastroparesis; E11.42 Type 2 diabetes mellitus with diabetic polyneuropathy; I12.9 Hypertensive chronic kidney disease with stage 1 through stage 4 chronic kidney disease, or unspecified chronic kidney disease; E11.22 Type 2 diabetes mellitus with diabetic chronic kidney disease; N18.9 Chronic kidney disease, unspecified; I70.0 Atherosclerosis of aorta; I48.91 Unspecified atrial fibrillation; E86.0 Dehydration; E03.9 Hypothyroidism, unspecified; N40.1 Benign prostatic hyperplasia with lower urinary tract symptoms; M20.41 Other hammer toe(s) (acquired), right foot; H11.31 Conjunctival hemorrhage, right eye; E11.51 Type 2 diabetes mellitus with diabetic peripheral angiopathy without gangrene; Z79.4 Long term (current) use of insulin; Z91.81 History of falling; Z89.411 Acquired absence of right great toe
CPT/HCPCS: 36415; 70450; 71045; 73630; 73718; 74176; 76775; 76937; 80048; 80053; 80069; 80202; 81001; 81003; 82550; 82803; 82962; 83036; 83605; 83690; 83735; 84100; 84133; 84155; 84300; 84443; 84484; 85014; 85018; 85025; 87040; 87081; 92610; 93005; 96360; 96361; 97110; 97161; 97166; 99291-25

== ENCOUNTER 2018-03-19 20:13 | Inpatient (IN) | payer MEDICARE, OTHER ==
[~2018-03-19 20:13] MED LIST: ETOMIDATE 20 MG INJ; SUCCINYLCHOLINE CHLORIDE 100 MG/5 ML SYG IV
[2018-03-19 21:09] LABS: ADD MAN DIFF? NO
[2018-03-19 21:11] LABS: WHITE BLOOD COUNT 16.4 10^3/ul (4.8-10.8)
[2018-03-19 21:11] LABS: ABNORMAL IP MESSAGE 1; BASOPHILS % 0.2 % (0.0-2.0); HEMATOCRIT 36.6 % (42.0-52.0); HEMOGLOBIN 12.4 g/dl (14.0-18.0); LYMPHOCYTES # 0.5 10^3/ul (0.8-2.9); LYMPHOCYTES % 3.1 % (15.0-51.0); MEAN CORPUSCULAR HEMOGLOBIN 30.5 pg (29.0-33.0); MEAN CORPUSCULAR HGB CONC 33.9 g/dl (32.0-37.0); MEAN CORPUSCULAR VOLUME 89.9 fl (82.0-101.0); MEAN PLATELET VOLUME 11.3 fl (7.4-10.4); MONOCYTE # 1.6 10^3/ul (0.3-0.9); NEUTROPHIL # 14.1 10^3/ul (1.6-7.5); NEUTROPHILS % 85.8 % (39.0-77.0); PLATELET COUNT 204 10^3/UL (140-415); POSITIVE DIFF @See below; RED BLOOD COUNT 4.07 10^6/ul (4.70-6.10); RED CELL DISTRIBUTION WIDTH 12.3 % (11.5-14.5)
[2018-03-19] MEDS: SOD CHLORIDE 0.9% 1,000 ML IV ×2 (21:24→22:57)
[2018-03-19 21:28] LABS: LACTIC ACID 1.7 mmol/L (0.5-2.0)
[2018-03-19 21:30] LABS: ANION GAP 35 (5-13); BLOOD UREA NITROGEN 91 mg/dl (7-20); CHLORIDE 89 mmol/L (97-110); CREATININE 2.37 mg/dl (0.61-1.24); POTASSIUM 5.4 mmol/L (3.5-5.1); SODIUM 131 mmol/L (135-144)
[2018-03-19] MEDS ORDERED: SODIUM CHLORIDE 23.4% 77 MEQ in DEXTROSE 10% 1,000 ML IV (21:35)
[2018-03-19] MEDS ORDERED: SOD CHLORIDE 0.9% 1,000 ML IV (21:35)
[2018-03-19] MEDS ORDERED: POTASSIUM CHLORIDE 40 MEQ in SOD CHLORIDE 0.9% 1,000 ML IV (21:35)
[2018-03-19] MEDS ORDERED: SODIUM CHLORIDE 23.4% 77 MEQ, POTASSIUM CHLORIDE 40 MEQ in DEXTROSE 10% 1,000 ML IV (21:35)
[2018-03-19 21:40] LABS: TROPONIN-I 0.014 ng/ml (0.000-0.120)
[2018-03-19 21:47] LABS: ADD UMIC YES; UR ASCORBIC ACID NEGATIVE (NEGATIVE); UR BILIRUBIN (Dip) NEGATIVE (NEGATIVE); UR BLOOD (Dip) 2+ mg/dL (NEGATIVE); UR CLARITY CLEAR (CLEAR); UR COLOR YELLOW (YELLOW); UR GLUCOSE (Dip) 3+ mg/dL (NEGATIVE); UR KETONES (Dip) 1+ mg/dL (NEGATIVE); UR LEUKOCYTE ESTERASE (Dip) NEGATIVE Leu/ul (NEGATIVE); UR NITRITE (Dip) NEGATIVE (NEGATIVE); UR RBC 0 /HPF (0-5); UR SPECIFIC GRAVITY (Dip) 1.017 (1.003-1.030); UR TOTAL PROTEIN (Dip) NEGATIVE (NEGATIVE); UR UROBILINOGEN (Dip) NEGATIVE (NEGATIVE); UR WBC 0 /HPF (0-5)
[2018-03-19 21:52] LABS: AADO2 Arterial 20.8 mmHg (7.0-24.0); Arterial Base Excess -24.3 mmol/L (-3.0-3); Arterial Blood Gas Oxygen Sat 98.3 mmHG (95.0-100.0); Arterial COHb 0.3 % (0.0-3.0); Arterial Fraction of Oxyhgb 97.6 % (93.0-99.0); Arterial HCO3 4.3 mmol/L (22.0-26.0); Arterial MetHb 0.4 % (0.0-1.5); Arterial pCO2 15.7 mmhg (35-45); MODE NASAL CANNULA; Site Right Brachial
[2018-03-19 21:53] LABS: CARBON DIOXIDE 7 mmol/L (21-31); GLUCOSE 639 mg/dl (70-220)
[2018-03-19 21:57] LABS: INR 1.06; PROTIME 13.9 Sec (11.9-14.9); PT RATIO 1.1
[2018-03-19 21:58] LABS: PARTIAL THROMBOPLASTIN TIME 25.3 Sec (23.0-35.0)
[2018-03-19] MEDS: LORAZEPAM 2 MG INJ IV (22:00)
[2018-03-19] MEDS: PROPOFOL 100 ML IV (22:20)
[2018-03-19] MEDS: CEFTRIAXONE 1 GM/50 ML (PMX) 50 ML IVPB (22:51)
[2018-03-19] MEDS: LACTATED RINGER'S 700 ML IV (22:59)
[2018-03-19] MEDS: LEVETIRACETAM 1000 MG (PMX) 100 ML IVPB (23:11)
[2018-03-19] MEDS: MIDAZOLAM (DRIP) 50 mg/50 mL 50 ML IV (23:27)
[2018-03-19 23:46] LABS: LACTIC ACID 1.4 mmol/L (0.5-2.0)
[2018-03-19 23:46] LABS: BLOOD UREA NITROGEN 84 mg/dl (7-20); CALCIUM 8.3 mg/dl (8.4-10.2); CHLORIDE 95 mmol/L (97-110); CREATININE 2.01 mg/dl (0.61-1.24); MAGNESIUM 2.3 mg/dl (1.7-2.5); PHOSPHORUS 7.8 mg/dl (2.5-4.9); SODIUM 132 mmol/L (135-144)
[2018-03-19 23:48] LABS: ANION GAP 32 (5-13)
[2018-03-19 23:50] LABS: CARBON DIOXIDE < 5 mmol/L (21-31); GLUCOSE 609 mg/dl (70-220)
[2018-03-20] MEDS ORDERED: ALBUTEROL HFA 8 GM INHALER INH
[2018-03-20] MEDS ORDERED: VANCOMYCIN IV PER PHARMACY XX
[2018-03-20] MEDS ORDERED: ACETAMINOPHEN 650MG/20.3ML CUP NGT
[2018-03-20] MEDS ORDERED: IPRATROPIUM (HFA) 12.9 GM INHALER INH
[2018-03-20 00:02] LABS: MODE VENT - AC; MetHgb Venous 0.4 %; Sample Type Blood venous; Site Left Radial; Venous COHb 0.1 %; Venous Oxygen Sat 86.4 mmHG (55.0-75.0); Venous Total Hemglobin 12.4 g/dl
[2018-03-20 00:48] LABS: LACTIC ACID 1.3 mmol/L (0.5-2.0)
[2018-03-20] MEDS: NA BICARBONATE 8.4% 50 ML SYG IV (00:48)
[2018-03-20] MEDS: INSULIN REGULAR, HUMAN 100 UNIT in SOD CHLORIDE 0.9% 100 ML IV ×2 (01:03→14:29)
[2018-03-20] MEDS: POTASSIUM CHLORIDE 30 MEQ in SOD CHLORIDE 0.9% 1,000 ML IV ×4 (01:04→19:01)
[2018-03-20 01:44] LABS: MODE VENT - AC; MetHgb Venous 0.3 %; Sample Type Blood venous; Site Left Radial; Venous COHb 0.3 %; Venous Oxygen Sat 80.5 mmHG (55.0-75.0); Venous Total Hemglobin 12.3 g/dl
[2018-03-20] MEDS: VANCOMYCIN 1.25 GM in SOD CHLORIDE 0.9% 250 ML IVPB (02:41)
[2018-03-20] MEDS: SODIUM BICARBONATE (IV ADD) 150 MEQ in DEXTROSE 5% 850 ML IV (03:04)
[2018-03-20 03:42] LABS: ANION GAP 23 (5-13); BLOOD UREA NITROGEN 82 mg/dl (7-20); CALCIUM 7.8 mg/dl (8.4-10.2); CHLORIDE 104 mmol/L (97-110); CREATININE 1.54 mg/dl (0.61-1.24); MAGNESIUM 2.1 mg/dl (1.7-2.5); POTASSIUM 4.1 mmol/L (3.5-5.1); SODIUM 137 mmol/L (135-144)
[2018-03-20 04:02] LABS: CARBON DIOXIDE 10 mmol/L (21-31); GLUCOSE 462 mg/dl (70-220)
[2018-03-20 05:26] LABS: ANION GAP 23 (5-13); BLOOD UREA NITROGEN 80 mg/dl (7-20); CALCIUM 7.9 mg/dl (8.4-10.2); CARBON DIOXIDE 11 mmol/L (21-31); CHLORIDE 104 mmol/L (97-110); CREATININE 1.46 mg/dl (0.61-1.24); MAGNESIUM 2.1 mg/dl (1.7-2.5); PHOSPHORUS 4.3 mg/dl (2.5-4.9); POTASSIUM 4.3 mmol/L (3.5-5.1); SODIUM 138 mmol/L (135-144)
[2018-03-20 05:27] LABS: MODE VENT - AC; MetHgb Venous 0.3 %; Sample Type Blood venous; Site VENOUS LINE; Venous COHb 0.2 %; Venous Fraction OxyHgb 60.5 %; Venous Oxygen Sat 60.8 mmHG (55.0-75.0); Venous Total Hemglobin 11.9 g/dl
[2018-03-20 05:30] LABS: GLUCOSE 424 mg/dl (70-220)
[2018-03-20 05:39] LABS: LACTIC ACID 1.7 mmol/L (0.5-2.0)
[2018-03-20] MEDS ORDERED: NORepinephrine 8MG/250 ML (PMX 250 ML (06:20)
[2018-03-20] MEDS ORDERED: HEPARIN 5,000 UNIT/0.5 ML VIAL ×3 (06:27→21:00)
[2018-03-20] MEDS: PIPER-TAZO 3.375 GM IV (PMX) 100 ML IVPB ×4 (06:31→21:05)
[2018-03-20] MEDS: PANTOPRAZOLE 40 MG INJ IV (06:31)
[2018-03-20] MEDS: HEPARIN 5,000 UNIT/1 ML VIAL SC ×4 (06:36→21:10)
[2018-03-20] MEDS: LEVOTHYROXINE 25 MCG TAB PO (07:00)
[2018-03-20] MEDS: DUTASTERIDE 0.5 MG CAP PO (09:00)
[2018-03-20] MEDS: CLOPIDOGREL 75 MG TAB PO (09:00)
[2018-03-20] MEDS: SODIUM CHLORIDE 23.4% 77 MEQ, POTASSIUM CHLORIDE 30 MEQ in DEXTROSE 10% 1,000 ML IV ×2 (09:37→17:04)
[2018-03-20 09:40] LABS: ANION GAP 15 (5-13); BLOOD UREA NITROGEN 74 mg/dl (7-20); CALCIUM 7.6 mg/dl (8.4-10.2); CARBON DIOXIDE 15 mmol/L (21-31); CHLORIDE 111 mmol/L (97-110); CREATININE 1.12 mg/dl (0.61-1.24); GLUCOSE 230 mg/dl (70-220); MAGNESIUM 1.9 mg/dl (1.7-2.5); PHOSPHORUS 2.6 mg/dl (2.5-4.9); POTASSIUM 4.3 mmol/L (3.5-5.1); SODIUM 141 mmol/L (135-144)
[2018-03-20] MEDS ORDERED: metroNIDAZOLE (5 MG/ML) IV SYG IV* (14:00)
[2018-03-20] MEDS: LACTATED RINGER'S 1,000 ML IV (14:41)
[2018-03-20 14:52] LABS: ALANINE AMINOTRANSFERASE 32 IU/L (13-69); ALBUMIN 2.1 g/dl (3.3-4.9); ALKALINE PHOSPHATASE 50 IU/L (42-121); ANION GAP 9 (5-13); ASPARTATE AMINO TRANSFERASE 40 IU/L (15-46); BILIRUBIN,INDIRECT 0.2 mg/dl (0-1.1); BILIRUBIN,TOTAL 0.2 mg/dl (0.2-1.3); BLOOD UREA NITROGEN 66 mg/dl (7-20); CALCIUM 6.9 mg/dl (8.4-10.2); CARBON DIOXIDE 20 mmol/L (21-31); CHLORIDE 110 mmol/L (97-110); CREATININE 0.93 mg/dl (0.61-1.24); GLUCOSE 321 mg/dl (70-220); POTASSIUM 4.8 mmol/L (3.5-5.1); SODIUM 139 mmol/L (135-144); TOTAL PROTEIN 4.2 g/dl (6.1-8.1)
[2018-03-20 14:54] LABS: ANION GAP 8 (5-13); BLOOD UREA NITROGEN 66 mg/dl (7-20); CARBON DIOXIDE 21 mmol/L (21-31); CHLORIDE 110 mmol/L (97-110); CREATININE 0.93 mg/dl (0.61-1.24); GLUCOSE 325 mg/dl (70-220); MAGNESIUM 1.6 mg/dl (1.7-2.5); PHOSPHORUS 1.1 mg/dl (2.5-4.9); POTASSIUM 4.6 mmol/L (3.5-5.1); SODIUM 139 mmol/L (135-144)
[2018-03-20] MEDS: metroNIDAZOLE 500 MG/NS (PMX) 100 ML IVPB ×2 (14:57→21:06)
[2018-03-20] MEDS: FENTAnyl (DRIP) 1000 mcg/100mL 100 ML IV (15:26)
[2018-03-20] MEDS: LACTATED RINGER'S 500 ML IV (16:00)
[2018-03-20 16:03] LABS: T3 UPTAKE 49.9 % (23.5-40.5)
[2018-03-20 16:34] LABS: CREATINE KINASE 522 IU/L (23-200)
[2018-03-20 16:55] LABS: Arterial Base Excess -5.6 mmol/L (-3.0-3); Arterial Blood Gas Oxygen Sat 98.2 mmHG (95.0-100.0); Arterial COHb 0.3 % (0.0-3.0); Arterial Fraction of Oxyhgb 97.4 % (93.0-99.0); Arterial HCO3 18.4 mmol/L (22.0-26.0); Arterial MetHb 0.5 % (0.0-1.5); Arterial pCO2 30.8 mmhg (35-45); MODE VENT - AC; Site Right Brachial
[2018-03-20] MEDS: MAGNESIUM SULFATE 3 GM in DEXTROSE 5% 100 ML IVPB (17:05)
[2018-03-20] MEDS: POTASSIUM PHOSPHATE 30 MM in SOD CHLORIDE 0.9% 250 ML IVPB (17:50)
[2018-03-20] MEDS: DEXTROSE 5%-LR 1,000 ML IV (20:12)
[2018-03-20] MEDS: INSULIN GLARGINE [LANTus] (100 UNITS/ML) SYG SC (20:15)
[2018-03-20] MEDS: TERAZOSIN 5 MG CAP PO (21:00)
[2018-03-20] MEDS: EZETIMIBE 10 MG TAB PO (21:06)
[2018-03-20] MEDS: ATORVASTATIN 80 MG TAB PO (21:06)
[2018-03-20 22:47] LABS: CHLORIDE 111 mmol/L (97-110)
[2018-03-20 22:50] LABS: ANION GAP 8 (5-13); BLOOD UREA NITROGEN 49 mg/dl (7-20); CALCIUM 6.9 mg/dl (8.4-10.2); CARBON DIOXIDE 20 mmol/L (21-31); CREATININE 0.86 mg/dl (0.61-1.24); GLUCOSE 153 mg/dl (70-220); MAGNESIUM 2.4 mg/dl (1.7-2.5); PHOSPHORUS 3.5 mg/dl (2.5-4.9); POTASSIUM 5.1 mmol/L (3.5-5.1); SODIUM 139 mmol/L (135-144)
[2018-03-21] MEDS: VANCOMYCIN 1 GM 250 ML IVPB ×2 (01:31→12:53)
[2018-03-21 05:09] LABS: ABNORMAL IP MESSAGE 1; HEMATOCRIT 27.1 % (42.0-52.0); HEMOGLOBIN 9.7 g/dl (14.0-18.0); MEAN CORPUSCULAR HEMOGLOBIN 30.5 pg (29.0-33.0); MEAN CORPUSCULAR HGB CONC 35.8 g/dl (32.0-37.0); MEAN CORPUSCULAR VOLUME 85.2 fl (82.0-101.0); MEAN PLATELET VOLUME 11.5 fl (7.4-10.4); PLATELET COUNT 116 10^3/UL (140-415); POSITIVE DIFF @See below; RED BLOOD COUNT 3.18 10^6/ul (4.70-6.10); RED CELL DISTRIBUTION WIDTH 12.4 % (11.5-14.5)
[2018-03-21 05:09] LABS: WHITE BLOOD COUNT 9.4 10^3/ul (4.8-10.8)
[2018-03-21 05:14] LABS: ADD MAN DIFF? YES
[2018-03-21 05:24] LABS: MAGNESIUM 2.3 mg/dl (1.7-2.5)
[2018-03-21 05:24] LABS: PHOSPHORUS 2.7 mg/dl (2.5-4.9)
[2018-03-21 05:26] LABS: ALANINE AMINOTRANSFERASE 32 IU/L (13-69); ALBUMIN 2.1 g/dl (3.3-4.9); ALBUMIN/GLOBULIN RATIO 1.05; ALKALINE PHOSPHATASE 44 IU/L (42-121); ANION GAP 6 (5-13); ASPARTATE AMINO TRANSFERASE 34 IU/L (15-46); BILIRUBIN,INDIRECT 0.3 mg/dl (0-1.1); BILIRUBIN,TOTAL 0.3 mg/dl (0.2-1.3); BLOOD UREA NITROGEN 45 mg/dl (7-20); CALCIUM 7.1 mg/dl (8.4-10.2); CARBON DIOXIDE 23 mmol/L (21-31); CHLORIDE 111 mmol/L (97-110); CREATININE 0.84 mg/dl (0.61-1.24); GLUCOSE 221 mg/dl (70-220); SODIUM 140 mmol/L (135-144); TOTAL PROTEIN 4.1 g/dl (6.1-8.1)
[2018-03-21] MEDS ORDERED: HEPARIN 5,000 UNIT/0.5 ML VIAL ×3 (05:28→20:09)
[2018-03-21] MEDS: PANTOPRAZOLE 40 MG INJ IV (05:31)
[2018-03-21 05:32] LABS: LACTIC ACID 1.8 mmol/L (0.5-2.0)
[2018-03-21] MEDS: LEVOTHYROXINE 100 MCG VIAL IV (05:33)
[2018-03-21] MEDS: PIPER-TAZO 3.375 GM IV (PMX) 100 ML IVPB ×3 (05:36→20:39)
[2018-03-21] MEDS: metroNIDAZOLE 500 MG/NS (PMX) 100 ML IVPB ×3 (05:36→20:39)
[2018-03-21] MEDS: HEPARIN 5,000 UNIT/1 ML VIAL SC ×3 (05:41→21:19)
[2018-03-21 07:26] LABS: AADO2 Arterial 183.2 mmHg (7.0-24.0); Arterial Base Excess -1.5 mmol/L (-3.0-3); Arterial COHb 0.2 % (0.0-3.0); Arterial Fraction of Oxyhgb 94.4 % (93.0-99.0); Arterial MetHb 0.4 % (0.0-1.5); Arterial pCO2 28.9 mmhg (35-45); MODE VENT - AC; Site Right Brachial
[2018-03-21] MEDS ORDERED: GLUCAGON 1 MG INJ IM (09:00)
[2018-03-21] MEDS ORDERED: GLUCOSE GEL 15 GRAM TUBE BUCCAL (09:00)
[2018-03-21] MEDS ORDERED: GLUCOSE GEL 15 GRAM TUBE PO ×2 (09:00)
[2018-03-21] MEDS: LACTATED RINGER'S 1,000 ML IV (09:03)
[2018-03-21] MEDS: DUTASTERIDE 0.5 MG CAP PO (09:03)
[2018-03-21] MEDS: LINAGLIPTIN 5 MG TABLET PO (09:03)
[2018-03-21 09:04] LABS: IRON 11 ug/dl (35-150)
[2018-03-21] MEDS: CLOPIDOGREL 75 MG TAB PO (09:04)
[2018-03-21] MEDS: LACTATED RINGER'S 500 ML IV (09:05)
[2018-03-21 09:14] LABS: % IRON SATURATION 6 % SAT (22-52); TOTAL IRON BINDING CAPACITY 184 ug/dl (241-421)
[2018-03-21 09:22] LABS: ANISOCYTOSIS 1+ (0-0); BAND NEUTROPHILS % (M) 54 % (0-4); GIANT THROMBO% (M) 3 % (0-0); LYMPHOCYTES #M 1.4 10^3/ul (0.8-2.9); LYMPHOCYTES % (M) 15 % (15-51); METAMYELOCYTES #M 0.1 10^3/ul (0.0-0.0); METAMYELOCYTES %M 2 % (0-0); MONOCYTE #M 0.2 10^3/ul (0.3-0.9); MONOCYTES % (M) 3 % (0-11); MYELOCYTES % (M) 1 % (0-0); PLATELET ESTIMATE DECREASED; POIKILOCYTOSIS 2+ (0-0); SEG NEUT #M 2.8 10^3/ul (1.6-7.5); SEGMENTED NEUTROPHILS (M) % 25 % (39-77); SMUDGE%M 9 % (0-0)
[2018-03-21] MEDS: INSULIN ASPART [NOVOLOG] 3 ML PEN SC ×4 (09:50→20:56)
[2018-03-21] MEDS: EZETIMIBE 10 MG TAB PO (20:39)
[2018-03-21] MEDS: ATORVASTATIN 80 MG TAB PO (20:39)
[2018-03-21] MEDS: INSULIN GLARGINE [LANTus] (100 UNITS/ML) SYG SC (20:56)
[2018-03-21] MEDS: FENTAnyl (DRIP) 1000 mcg/100mL 100 ML IV (21:49)
[2018-03-21] MEDS: ACCU-CHEK XX (23:58)
[2018-03-22] MEDS: VANCOMYCIN 1 GM 250 ML IVPB ×2 (00:08→13:44)
[2018-03-22] MEDS: INSULIN ASPART [NOVOLOG] 3 ML PEN SC ×6 (00:11→21:32)
[2018-03-22] MEDS: LACTATED RINGER'S 1,000 ML IV (04:10)
[2018-03-22] MEDS ORDERED: HEPARIN 5,000 UNIT/0.5 ML VIAL ×2 (05:19→21:22)
[2018-03-22 05:22] LABS: ABNORMAL IP MESSAGE 1; HEMATOCRIT 24.1 % (42.0-52.0); HEMOGLOBIN 8.5 g/dl (14.0-18.0); MEAN CORPUSCULAR HEMOGLOBIN 30.8 pg (29.0-33.0); MEAN CORPUSCULAR HGB CONC 35.3 g/dl (32.0-37.0); MEAN CORPUSCULAR VOLUME 87.3 fl (82.0-101.0); MEAN PLATELET VOLUME 11.9 fl (7.4-10.4); PLATELET COUNT 92 10^3/UL (140-415); POSITIVE DIFF @See below; RED BLOOD COUNT 2.76 10^6/ul (4.70-6.10); RED CELL DISTRIBUTION WIDTH 13.4 % (11.5-14.5)
[2018-03-22 05:22] LABS: WHITE BLOOD COUNT 13.2 10^3/ul (4.8-10.8)
[2018-03-22] MEDS: BALSAM PERU/CASTOR OIL 60 GM TUBE TOP ×2 (05:24→08:17)
[2018-03-22] MEDS: metroNIDAZOLE 500 MG/NS (PMX) 100 ML IVPB ×2 (05:25→14:55)
[2018-03-22] MEDS: PIPER-TAZO 3.375 GM IV (PMX) 100 ML IVPB ×3 (05:25→21:33)
[2018-03-22] MEDS: PANTOPRAZOLE 40 MG INJ IV ×2 (05:26→17:08)
[2018-03-22] MEDS: LEVOTHYROXINE 100 MCG VIAL IV (05:29)
[2018-03-22 05:35] LABS: LACTIC ACID 1.4 mmol/L (0.5-2.0)
[2018-03-22] MEDS: HEPARIN 5,000 UNIT/1 ML VIAL SC ×3 (05:35→21:33)
[2018-03-22 05:50] LABS: ADD MAN DIFF? YES
[2018-03-22 07:49] LABS: ANION GAP 4 (5-13); BLOOD UREA NITROGEN 29 mg/dl (7-20); CALCIUM 7.1 mg/dl (8.4-10.2); CARBON DIOXIDE 27 mmol/L (21-31); CHLORIDE 113 mmol/L (97-110); CREATININE 0.69 mg/dl (0.61-1.24); GLUCOSE 61 mg/dl (70-220); POTASSIUM 3.6 mmol/L (3.5-5.1); SODIUM 144 mmol/L (135-144)
[2018-03-22] MEDS: LINAGLIPTIN 5 MG TABLET PO (08:17)
[2018-03-22] MEDS: DUTASTERIDE 0.5 MG CAP PO (08:17)
[2018-03-22] MEDS: CLOPIDOGREL 75 MG TAB PO (08:17)
[2018-03-22] MEDS: DEXTROSE 50% 50 ML SYRINGE IV ×2 (08:26→12:38)
[2018-03-22] MEDS ORDERED: BALSAM PERU/CASTOR OIL 60 GM TUBE TOP (09:00)
[2018-03-22 09:32] LABS: Allen Test ACCEPTAB; Arterial Base Excess -0.6 mmol/L (-3.0-3); Arterial Blood Gas Oxygen Sat 94.1 mmHG (95.0-100.0); Arterial COHb 0.2 % (0.0-3.0); Arterial Fraction of Oxyhgb 93.8 % (93.0-99.0); Arterial HCO3 22.2 mmol/L (22.0-26.0); Arterial MetHb 0.1 % (0.0-1.5); Arterial pCO2 29.9 mmhg (35-45); Blood Gas PS 10; MODE VENT - CPAP; Site Right Radial
[2018-03-22 10:49] LABS: ANISOCYTOSIS 3+ (0-0); BAND NEUTROPHILS #M 8.4 10^3/ul (0.0-0.6); BAND NEUTROPHILS % (M) 64 % (0-4); HYPOCHROMASIA 1+ (0-0); LYMPHOCYTES #M 0.5 10^3/ul (0.8-2.9); LYMPHOCYTES % (M) 4 % (15-51); MICROCYTOSIS 3+ (0-0); MONOCYTE #M 0.7 10^3/ul (0.3-0.9); MONOCYTES % (M) 6 % (0-11); MYELOCYTES #M 0.1 10^3/ul (0.0-0.0); MYELOCYTES % (M) 1 % (0-0); PLATELET ESTIMATE DECREASED; POIKILOCYTOSIS 3+ (0-0); SEG NEUT #M 4.4 10^3/ul (1.6-7.5); SEGMENTED NEUTROPHILS (M) % 25 % (39-77); SMUDGE%M 4 % (0-0)
[2018-03-22 13:04] LABS: VANCOMYCIN,TROUGH 19.1 ug/ml (10.0-20.0)
[2018-03-22] MEDS: DEXTROSE 5%-0.45% NACL 1,000 ML IV (14:55)
[2018-03-22 16:22] LABS: CREATINE KINASE 147 IU/L (23-200)
[2018-03-22 16:34] LABS: CK INDEX 0.7; CK-MB 1.08 ng/ml (0.0-2.4)
[2018-03-22 16:58] LABS: TROPONIN-I 0.143 ng/ml (0.000-0.120)
[2018-03-22] MEDS: SUCRALFATE (100 MG/ML) 10ML CUP NGT ×2 (17:08→21:25)
[2018-03-22] MEDS: FUROSEMIDE 20 MG INJ IV (17:08)
[2018-03-22 18:58] LABS: OCCULT BLOOD STOOL POSITIVE (NEGATIVE)
[2018-03-22] MEDS: ATORVASTATIN 80 MG TAB PO (21:25)
[2018-03-22] MEDS: EZETIMIBE 10 MG TAB PO (21:25)
[2018-03-22] MEDS: ACETYLCYSTEINE 20% 4 ML VIAL NEB (22:36)
[2018-03-23] MEDS: VANCOMYCIN 750 MG in SOD CHLORIDE 0.9% 150 ML IVPB ×2 (01:26→13:52)
[2018-03-23] MEDS: INSULIN ASPART [NOVOLOG] 3 ML PEN SC ×6 (01:28→22:03)
[2018-03-23] MEDS: ACETYLCYSTEINE 20% 4 ML VIAL NEB ×4 (01:34→20:20)
[2018-03-23] MEDS: ACCU-CHEK XX (02:07)
[2018-03-23] MEDS ORDERED: HEPARIN 5,000 UNIT/0.5 ML VIAL ×2 (05:20→14:30)
[2018-03-23] MEDS: LEVOTHYROXINE 100 MCG VIAL IV (05:39)
[2018-03-23] MEDS: FUROSEMIDE 20 MG INJ IV (05:39)
[2018-03-23] MEDS: PIPER-TAZO 3.375 GM IV (PMX) 100 ML IVPB ×3 (05:40→17:18)
[2018-03-23] MEDS: HEPARIN 5,000 UNIT/1 ML VIAL SC ×2 (05:43→14:34)
[2018-03-23 05:58] LABS: WHITE BLOOD COUNT 12.2 10^3/ul (4.8-10.8)
[2018-03-23 05:58] LABS: ABNORMAL IP MESSAGE 1; HEMATOCRIT 22.5 % (42.0-52.0); HEMOGLOBIN 7.9 g/dl (14.0-18.0); MEAN CORPUSCULAR HEMOGLOBIN 30.4 pg (29.0-33.0); MEAN CORPUSCULAR HGB CONC 35.1 g/dl (32.0-37.0); MEAN CORPUSCULAR VOLUME 86.5 fl (82.0-101.0); MEAN PLATELET VOLUME 11.9 fl (7.4-10.4); PLATELET COUNT 86 10^3/UL (140-415); POSITIVE DIFF @See below; RED CELL DISTRIBUTION WIDTH 13.6 % (11.5-14.5)
[2018-03-23] MEDS: PANTOPRAZOLE 40 MG INJ IV ×2 (05:59→17:18)
[2018-03-23 06:10] LABS: ADD MAN DIFF? YES
[2018-03-23 06:49] LABS: ANION GAP 5 (5-13); BLOOD UREA NITROGEN 22 mg/dl (7-20); CALCIUM 6.9 mg/dl (8.4-10.2); CARBON DIOXIDE 31 mmol/L (21-31); CHLORIDE 108 mmol/L (97-110); CREATININE 0.76 mg/dl (0.61-1.24); GLUCOSE 185 mg/dl (70-220); MAGNESIUM 1.8 mg/dl (1.7-2.5); PHOSPHORUS 1.3 mg/dl (2.5-4.9); SODIUM 144 mmol/L (135-144)
[2018-03-23 06:52] LABS: POTASSIUM 2.5 mmol/L (3.5-5.1)
[2018-03-23] MEDS: MAGNESIUM SULFATE 2 GM/50 ML 50 ML IVPB (07:26)
[2018-03-23] MEDS: POTASSIUM CHLORIDE 100 ML IVPB ×3 (07:26→10:30)
[2018-03-23 07:38] LABS: AADO2 Arterial 177.8 mmHg (7.0-24.0); Arterial Base Excess 5.6 mmol/L (-3.0-3); Arterial Blood Gas Oxygen Sat 95.3 mmHG (95.0-100.0); Arterial COHb 0.3 % (0.0-3.0); Arterial Fraction of Oxyhgb 94.9 % (93.0-99.0); Arterial HCO3 27.4 mmol/L (22.0-26.0); Arterial MetHb 0.1 % (0.0-1.5); MODE NASAL CANNULA; Site Right Brachial
[2018-03-23 07:56] LABS: ANISOCYTOSIS 1+ (0-0); BAND NEUTROPHILS #M 2.3 10^3/ul (0.0-0.6); BAND NEUTROPHILS % (M) 19 % (0-4); BURR CELLS 2+ (0-0); GIANT THROMBO% (M) 1 % (0-0); LYMPHOCYTES #M 0.8 10^3/ul (0.8-2.9); LYMPHOCYTES % (M) 7 % (15-51); METAMYELOCYTES #M 0.1 10^3/ul (0.0-0.0); METAMYELOCYTES %M 1 % (0-0); PLATELET ESTIMATE DECREASED; POIKILOCYTOSIS 3+ (0-0); POLYCHROMASIA 1+ (0-0); SEG NEUT #M 9.2 10^3/ul (1.6-7.5); SEGMENTED NEUTROPHILS (M) % 73 % (39-77); SMUDGE%M 1 % (0-0)
[2018-03-23] MEDS: DUTASTERIDE 0.5 MG CAP PO (08:10)
[2018-03-23] MEDS: CLOPIDOGREL 75 MG TAB PO (08:10)
[2018-03-23] MEDS: SUCRALFATE (100 MG/ML) 10ML CUP NGT ×4 (08:10→21:00)
[2018-03-23] MEDS: LINAGLIPTIN 5 MG TABLET PO (08:11)
[2018-03-23] MEDS: BALSAM PERU/CASTOR OIL 60 GM TUBE TOP (08:11)
[2018-03-23 12:51] LABS: ANION GAP 6 (5-13); BLOOD UREA NITROGEN 20 mg/dl (7-20); CALCIUM 7.1 mg/dl (8.4-10.2); CARBON DIOXIDE 31 mmol/L (21-31); CHLORIDE 105 mmol/L (97-110); CREATININE 0.79 mg/dl (0.61-1.24); GLUCOSE 234 mg/dl (70-220); MAGNESIUM 2.2 mg/dl (1.7-2.5); POTASSIUM 3.2 mmol/L (3.5-5.1); SODIUM 142 mmol/L (135-144)
[2018-03-23] MEDS: CALCIUM GLUCONATE 10% 2 GM in DEXTROSE 5% 100 ML IVPB (13:02)
[2018-03-23] MEDS: POTASSIUM PHOSPHATE 20 MEQ in SOD CHLORIDE 0.9% 250 ML IVPB ×2 (13:53→16:20)
[2018-03-23] MEDS: ALBUTEROL 0.083% (NEB) 2.5 MG/3 ML AMP HHN (20:21)
[2018-03-23] MEDS: ATORVASTATIN 80 MG TAB PO (21:00)
[2018-03-23] MEDS: EZETIMIBE 10 MG TAB PO (21:00)
[2018-03-23] MEDS: INSULIN GLARGINE [LANTus] (100 UNITS/ML) SYG SC (22:02)
[2018-03-24] MEDS: PIPER-TAZO 3.375 GM IV (PMX) 100 ML IVPB ×4 (00:52→17:35)
[2018-03-24] MEDS: INSULIN ASPART [NOVOLOG] 3 ML PEN SC ×6 (00:52→21:06)
[2018-03-24] MEDS: VANCOMYCIN 750 MG in SOD CHLORIDE 0.9% 150 ML IVPB (02:25)
[2018-03-24] MEDS: ALBUTEROL 0.083% (NEB) 2.5 MG/3 ML AMP HHN ×2 (02:38→07:42)
[2018-03-24] MEDS: ACETYLCYSTEINE 20% 4 ML VIAL NEB ×4 (02:39→21:15)
[2018-03-24] MEDS: LEVOTHYROXINE 50 MCG TAB PO (05:19)
[2018-03-24] MEDS: PANTOPRAZOLE 40 MG INJ IV ×2 (05:37→17:43)
[2018-03-24 06:41] LABS: ADD MAN DIFF? NO
[2018-03-24 06:52] LABS: ABNORMAL IP MESSAGE 1; HEMATOCRIT 23.7 % (42.0-52.0); HEMOGLOBIN 8.1 g/dl (14.0-18.0); MEAN CORPUSCULAR HEMOGLOBIN 30.2 pg (29.0-33.0); MEAN CORPUSCULAR HGB CONC 34.2 g/dl (32.0-37.0); MEAN CORPUSCULAR VOLUME 88.4 fl (82.0-101.0); MEAN PLATELET VOLUME 11.6 fl (7.4-10.4); PLATELET COUNT 77 10^3/UL (140-415); POSITIVE DIFF @See below; RED BLOOD COUNT 2.68 10^6/ul (4.70-6.10); RED CELL DISTRIBUTION WIDTH 13.8 % (11.5-14.5)
[2018-03-24 06:52] LABS: WHITE BLOOD COUNT 8.5 10^3/ul (4.8-10.8)
[2018-03-24 07:09] LABS: CREATINE KINASE 92 IU/L (23-200)
[2018-03-24 07:18] LABS: B-TYPE NATRIURETIC PEPTIDE 4860 PG/ML (0-450)
[2018-03-24 07:21] LABS: CK INDEX 0.8; CK-MB 0.76 ng/ml (0.0-2.4); TROPONIN-I 0.085 ng/ml (0.000-0.120)
[2018-03-24] MEDS: LINAGLIPTIN 5 MG TABLET PO (09:00)
[2018-03-24] MEDS: DUTASTERIDE 0.5 MG CAP PO (09:00)
[2018-03-24] MEDS: FUROSEMIDE 20 MG INJ IV (09:00)
[2018-03-24] MEDS: SUCRALFATE (100 MG/ML) 10ML CUP NGT ×4 (09:00→20:42)
[2018-03-24 09:38] LABS: BAND NEUTROPHILS #M 1.7 10^3/ul (0.0-0.6); BAND NEUTROPHILS % (M) 21 % (0-4); EOSINOPHILS % (M) 1 % (0-7); LYMPHOCYTES #M 0.8 10^3/ul (0.8-2.9); LYMPHOCYTES % (M) 10 % (15-51); MONOCYTE #M 0.3 10^3/ul (0.3-0.9); MONOCYTES % (M) 4 % (0-11); PLATELET ESTIMATE DECREASED; REACTIVE LYMPHOCYTES #M 0.1 10^3/ul (0.0-0.0); REACTIVE LYMPHOCYTES% (M) 2 % (0-0); SEG NEUT #M 5.4 10^3/ul (1.6-7.5); SEGMENTED NEUTROPHILS (M) % 62 % (39-77); SMUDGE%M 1 % (0-0)
[2018-03-24] MEDS: BALSAM PERU/CASTOR OIL 60 GM TUBE TOP (10:11)
[2018-03-24 11:54] LABS: ANION GAP 9 (5-13); BLOOD UREA NITROGEN 17 mg/dl (7-20); CALCIUM 7.6 mg/dl (8.4-10.2); CARBON DIOXIDE 31 mmol/L (21-31); CHLORIDE 104 mmol/L (97-110); CREATININE 0.79 mg/dl (0.61-1.24); GLUCOSE 146 mg/dl (70-220); SODIUM 144 mmol/L (135-144)
[2018-03-24 12:07] LABS: POTASSIUM 2.4 mmol/L (3.5-5.1)
[2018-03-24 13:17] LABS: VANCOMYCIN,TROUGH 18.7 ug/ml (10.0-20.0)
[2018-03-24] MEDS ORDERED: POTASSIUM CHLORIDE 50 ML IVPB (14:30)
[2018-03-24] MEDS: VANCOMYCIN 500MG/NS (PMX) 100 ML IVPB (14:33)
[2018-03-24] MEDS: POTASSIUM CHLORIDE 100 ML IVPB ×2 (16:26→18:29)
[2018-03-24] MEDS: POTASSIUM PHOSPHATE 20 MEQ in SOD CHLORIDE 0.9% 250 ML IVPB (16:47)
[2018-03-24] MEDS: EZETIMIBE 10 MG TAB PO (20:42)
[2018-03-24] MEDS: ATORVASTATIN 80 MG TAB PO (20:42)
[2018-03-24] MEDS: INSULIN GLARGINE [LANTus] (100 UNITS/ML) SYG SC (21:07)
[2018-03-24 21:25] LABS: AADO2 Arterial 62.6 mmHg (7.0-24.0); Allen Test ACCEPTAB; Arterial Base Excess 6.9 mmol/L (-3.0-3); Arterial Blood Gas Oxygen Sat 87.7 mmHG (95.0-100.0); Arterial COHb 0.3 % (0.0-3.0); Arterial Fraction of Oxyhgb 87.2 % (93.0-99.0); Arterial HCO3 29.2 mmol/L (22.0-26.0); Arterial MetHb 0.3 % (0.0-1.5); MODE ROOM AIR; Site Right Radial
[2018-03-24 21:32] LABS: ANION GAP 8 (5-13); BLOOD UREA NITROGEN 18 mg/dl (7-20); CALCIUM 7.4 mg/dl (8.4-10.2); CARBON DIOXIDE 31 mmol/L (21-31); CHLORIDE 101 mmol/L (97-110); CREATININE 0.78 mg/dl (0.61-1.24); GLUCOSE 271 mg/dl (70-220); POTASSIUM 3.2 mmol/L (3.5-5.1); SODIUM 140 mmol/L (135-144)
[2018-03-25] MEDS: PIPER-TAZO 3.375 GM IV (PMX) 100 ML IVPB ×2 (00:12→05:25)
[2018-03-25] MEDS: INSULIN ASPART [NOVOLOG] 3 ML PEN SC ×7 (00:24→20:30)
[2018-03-25] MEDS: ACETYLCYSTEINE 20% 4 ML VIAL NEB ×4 (01:00→20:07)
[2018-03-25] MEDS: VANCOMYCIN 500MG/NS (PMX) 100 ML IVPB ×2 (03:40→16:01)
[2018-03-25] MEDS: DEXTROSE 50% 50 ML SYRINGE IV (04:16)
[2018-03-25] MEDS: ALBUTEROL 0.083% (NEB) 2.5 MG/3 ML AMP HHN ×4 (05:04→20:07)
[2018-03-25] MEDS: LEVOTHYROXINE 50 MCG TAB PO (05:10)
[2018-03-25] MEDS: PANTOPRAZOLE 40 MG INJ IV ×2 (05:25→17:47)
[2018-03-25 07:29] LABS: ALANINE AMINOTRANSFERASE 31 IU/L (13-69); ALBUMIN 2.2 g/dl (3.3-4.9); ALKALINE PHOSPHATASE 134 IU/L (42-121); ANION GAP 5 (5-13); ASPARTATE AMINO TRANSFERASE 26 IU/L (15-46); BILIRUBIN,INDIRECT 0.5 mg/dl (0-1.1); BILIRUBIN,TOTAL 0.5 mg/dl (0.2-1.3); BLOOD UREA NITROGEN 16 mg/dl (7-20); CALCIUM 7.4 mg/dl (8.4-10.2); CARBON DIOXIDE 33 mmol/L (21-31); CHLORIDE 104 mmol/L (97-110); CREATININE 0.71 mg/dl (0.61-1.24); GLUCOSE 114 mg/dl (70-220); MAGNESIUM 1.8 mg/dl (1.7-2.5); SODIUM 142 mmol/L (135-144); TOTAL PROTEIN 4.4 g/dl (6.1-8.1)
[2018-03-25 07:32] LABS: POTASSIUM 2.4 mmol/L (3.5-5.1)
[2018-03-25] MEDS ORDERED: PROPOFOL 100 ML (07:48)
[2018-03-25] MEDS ORDERED: NORepinephrine 8MG/250 ML (PMX 250 ML IV (08:00)
[2018-03-25] MEDS ORDERED: POTASSIUM CHLORIDE 50 ML IVPB (08:00)
[2018-03-25] MEDS: PROPOFOL 100 ML IV ×2 (08:00→19:43)
[2018-03-25] MEDS: POTASSIUM CHLORIDE 50 ML IVPB ×3 (08:17→12:38)
[2018-03-25] MEDS: FUROSEMIDE 20 MG INJ IV (08:41)
[2018-03-25] MEDS: ASPIRIN 300 MG SUPP PR (08:45)
[2018-03-25 08:48] LABS: AADO2 Arterial 420.3 mmHg (7.0-24.0); Arterial Base Excess 5.5 mmol/L (-3.0-3); Arterial Blood Gas Oxygen Sat 99.2 mmHG (95.0-100.0); Arterial COHb 0.3 % (0.0-3.0); Arterial Fraction of Oxyhgb 98.6 % (93.0-99.0); Arterial HCO3 28.4 mmol/L (22.0-26.0); Arterial MetHb 0.3 % (0.0-1.5); Arterial pCO2 34.7 mmhg (35-45); MODE VENT - AC; Site Right Brachial
[2018-03-25] MEDS: DUTASTERIDE 0.5 MG CAP PO (09:00)
[2018-03-25] MEDS: SUCRALFATE (100 MG/ML) 10ML CUP NGT ×4 (09:00→20:23)
[2018-03-25 10:57] LABS: PHOSPHORUS 2.5 mg/dl (2.5-4.9)
[2018-03-25] MEDS: BALSAM PERU/CASTOR OIL 60 GM TUBE TOP ×2 (12:46→20:24)
[2018-03-25] MEDS: LEVETIRACETAM 500 MG (PMX) 100 ML IVPB ×2 (12:48→21:40)
[2018-03-25] MEDS: MAGNESIUM SULFATE 3 GM in DEXTROSE 5% 100 ML IVPB (15:42)
[2018-03-25] MEDS: MEROPENEM 1 GM/50ML(PMX) 50 ML IVPB (20:23)
[2018-03-25] MEDS: EZETIMIBE 10 MG TAB PO (20:24)
[2018-03-25] MEDS: ATORVASTATIN 80 MG TAB PO (20:24)
[2018-03-25] MEDS: INSULIN GLARGINE [LANTus] (100 UNITS/ML) SYG SC (20:33)
[2018-03-25] MEDS: FENTAnyl (DRIP) 1000 mcg/100mL 100 ML IV (22:48)
[2018-03-25 23:05] LABS: ANION GAP 6 (5-13); BLOOD UREA NITROGEN 19 mg/dl (7-20); CALCIUM 7.3 mg/dl (8.4-10.2); CARBON DIOXIDE 31 mmol/L (21-31); CHLORIDE 102 mmol/L (97-110); CREATININE 0.72 mg/dl (0.61-1.24); GLUCOSE 192 mg/dl (70-220); SODIUM 139 mmol/L (135-144)
[2018-03-26 00:34] LABS: MAGNESIUM 2.6 mg/dl (1.7-2.5)
[2018-03-26 00:34] LABS: PHOSPHORUS 1.5 mg/dl (2.5-4.9)
[2018-03-26] MEDS: INSULIN ASPART [NOVOLOG] 3 ML PEN SC ×6 (01:05→21:51)
[2018-03-26] MEDS: ALBUTEROL 0.083% (NEB) 2.5 MG/3 ML AMP HHN ×4 (02:09→20:02)
[2018-03-26] MEDS: ACETYLCYSTEINE 20% 4 ML VIAL NEB ×4 (02:09→20:02)
[2018-03-26 02:28] LABS: HEMATOCRIT 23.8 % (42.0-52.0); HEMOGLOBIN 8.1 g/dl (14.0-18.0); MEAN CORPUSCULAR HEMOGLOBIN 30.8 pg (29.0-33.0); MEAN CORPUSCULAR VOLUME 90.5 fl (82.0-101.0); MEAN PLATELET VOLUME 12.4 fl (7.4-10.4); PLATELET COUNT 109 10^3/UL (140-415); POSITIVE DIFF @See below; RED BLOOD COUNT 2.63 10^6/ul (4.70-6.10); RED CELL DISTRIBUTION WIDTH 14.1 % (11.5-14.5)
[2018-03-26 02:28] LABS: WHITE BLOOD COUNT 9.1 10^3/ul (4.8-10.8)
[2018-03-26 02:35] LABS: ADD MAN DIFF? YES
[2018-03-26 02:55] LABS: MAGNESIUM 2.5 mg/dl (1.7-2.5)
[2018-03-26 02:59] LABS: VANCOMYCIN,TROUGH 16.4 ug/ml (10.0-20.0)
[2018-03-26] MEDS: VANCOMYCIN 500MG/NS (PMX) 100 ML IVPB ×2 (03:24→15:19)
[2018-03-26 04:10] LABS: BAND NEUTROPHILS % (M) 12 % (0-4); EOSINOPHILS % (M) 1 % (0-7); GIANT THROMBO% (M) 3 % (0-0); LYMPHOCYTES #M 0.6 10^3/ul (0.8-2.9); LYMPHOCYTES % (M) 7 % (15-51); MONOCYTE #M 0.3 10^3/ul (0.3-0.9); MONOCYTES % (M) 4 % (0-11); PLATELET ESTIMATE DECREASED; SEGMENTED NEUTROPHILS (M) % 76 % (39-77)
[2018-03-26] MEDS: PANTOPRAZOLE 40 MG INJ IV ×2 (05:29→17:25)
[2018-03-26] MEDS: LEVOTHYROXINE 50 MCG TAB PO (05:29)
[2018-03-26] MEDS: SOD CHLORIDE 0.9% 500 ML IV ×2 (05:35→06:03)
[2018-03-26] MEDS: PROPOFOL 100 ML IV ×2 (08:36→20:00)
[2018-03-26] MEDS: FUROSEMIDE 20 MG INJ IV (08:45)
[2018-03-26] MEDS: LEVETIRACETAM 500 MG (PMX) 100 ML IVPB ×2 (08:45→21:32)
[2018-03-26] MEDS: DUTASTERIDE 0.5 MG CAP PO (08:49)
[2018-03-26] MEDS: SUCRALFATE (100 MG/ML) 10ML CUP NGT ×4 (08:49→21:34)
[2018-03-26] MEDS: MEROPENEM 1 GM/50ML(PMX) 50 ML IVPB ×2 (08:49→21:32)
[2018-03-26] MEDS: ASPIRIN 300 MG SUPP PR (08:50)
[2018-03-26] MEDS: BALSAM PERU/CASTOR OIL 60 GM TUBE TOP ×2 (08:50→21:46)
[2018-03-26] MEDS: FENTAnyl (DRIP) 1000 mcg/100mL 100 ML IV (19:01)
[2018-03-26] MEDS: POTASSIUM CHLORIDE 20 MEQ POWDER FOR ORAL SOLN GTB (19:46)
[2018-03-26] MEDS: EZETIMIBE 10 MG TAB PO (21:00)
[2018-03-26] MEDS: ATORVASTATIN 80 MG TAB PO (21:34)
[2018-03-26] MEDS: INSULIN GLARGINE [LANTus] (100 UNITS/ML) SYG SC (21:35)
[2018-03-26] MEDS: POTASSIUM CHLORIDE 20 MEQ POWDER FOR ORAL SOLN PO (23:20)
[2018-03-27] MEDS: INSULIN ASPART [NOVOLOG] 3 ML PEN SC ×6 (00:58→20:54)
[2018-03-27] MEDS: ACETYLCYSTEINE 20% 4 ML VIAL NEB ×4 (01:01→20:26)
[2018-03-27] MEDS: ALBUTEROL 0.083% (NEB) 2.5 MG/3 ML AMP HHN ×4 (01:01→20:26)
[2018-03-27] MEDS: VANCOMYCIN 500MG/NS (PMX) 100 ML IVPB ×2 (04:06→14:58)
[2018-03-27 04:57] LABS: ADD MAN DIFF? NO
[2018-03-27 04:59] LABS: ABNORMAL IP MESSAGE 1; BASOPHILS % 0.1 % (0.0-2.0); EOSINOPHILS # 0.1 10^3/ul (0.0-0.5); EOSINOPHILS % 0.6 % (0.0-7.0); HEMATOCRIT 24.4 % (42.0-52.0); HEMOGLOBIN 8.2 g/dl (14.0-18.0); LYMPHOCYTES # 1.2 10^3/ul (0.8-2.9); LYMPHOCYTES % 10.6 % (15.0-51.0); MEAN CORPUSCULAR HEMOGLOBIN 30.5 pg (29.0-33.0); MEAN CORPUSCULAR HGB CONC 33.6 g/dl (32.0-37.0); MEAN CORPUSCULAR VOLUME 90.7 fl (82.0-101.0); MEAN PLATELET VOLUME 11.5 fl (7.4-10.4); MONOCYTE # 0.5 10^3/ul (0.3-0.9); MONOCYTES % 4.6 % (0.0-11.0); NEUTROPHIL # 9.1 10^3/ul (1.6-7.5); NEUTROPHILS % 83.1 % (39.0-77.0); PLATELET COUNT 92 10^3/UL (140-415); POSITIVE DIFF @See below; RED BLOOD COUNT 2.69 10^6/ul (4.70-6.10); RED CELL DISTRIBUTION WIDTH 14.2 % (11.5-14.5)
[2018-03-27 05:27] LABS: ALANINE AMINOTRANSFERASE 36 IU/L (13-69); ALBUMIN 2.4 g/dl (3.3-4.9); ALBUMIN/GLOBULIN RATIO 0.92; ALKALINE PHOSPHATASE 232 IU/L (42-121); ANION GAP 5 (5-13); ASPARTATE AMINO TRANSFERASE 44 IU/L (15-46); BILIRUBIN,INDIRECT 0.4 mg/dl (0-1.1); BILIRUBIN,TOTAL 0.4 mg/dl (0.2-1.3); BLOOD UREA NITROGEN 17 mg/dl (7-20); CALCIUM 7.1 mg/dl (8.4-10.2); CARBON DIOXIDE 33 mmol/L (21-31); CHLORIDE 105 mmol/L (97-110); CREATININE 0.68 mg/dl (0.61-1.24); GLUCOSE 180 mg/dl (70-220); POTASSIUM 3.5 mmol/L (3.5-5.1); SODIUM 143 mmol/L (135-144)
[2018-03-27] MEDS: PANTOPRAZOLE 40 MG INJ IV ×2 (05:50→17:26)
[2018-03-27] MEDS: LEVOTHYROXINE 50 MCG TAB PO (05:51)
[2018-03-27] MEDS: FUROSEMIDE 20 MG INJ IV (08:12)
[2018-03-27] MEDS: LEVETIRACETAM 500 MG (PMX) 100 ML IVPB ×2 (08:12→20:51)
[2018-03-27] MEDS: MEROPENEM 1 GM/50ML(PMX) 50 ML IVPB ×2 (08:13→20:51)
[2018-03-27] MEDS: SUCRALFATE (100 MG/ML) 10ML CUP NGT ×4 (08:13→20:51)
[2018-03-27] MEDS: DUTASTERIDE 0.5 MG CAP PO (08:13)
[2018-03-27] MEDS: ASPIRIN 300 MG SUPP PR (08:13)
[2018-03-27] MEDS: BALSAM PERU/CASTOR OIL 60 GM TUBE TOP ×2 (08:14→20:59)
[2018-03-27] MEDS: INSULIN GLARGINE [LANTus] (100 UNITS/ML) SYG SC ×2 (08:17→20:53)
[2018-03-27 13:28] LABS: AADO2 Arterial 90.9 mmHg (7.0-24.0); Allen Test ACCEPTAB; Arterial Base Excess 8.8 mmol/L (-3.0-3); Arterial Blood Gas Oxygen Sat 96.3 mmHG (95.0-100.0); Arterial COHb 0.3 % (0.0-3.0); Arterial Fraction of Oxyhgb 95.7 % (93.0-99.0); Arterial HCO3 32.1 mmol/L (22.0-26.0); Arterial MetHb 0.3 % (0.0-1.5); Arterial pCO2 38.9 mmhg (35-45); MODE NASAL CANNULA; Site Right Radial
[2018-03-27] MEDS: EZETIMIBE 10 MG TAB PO (20:51)
[2018-03-27] MEDS: ATORVASTATIN 80 MG TAB PO (20:52)
[2018-03-28] MEDS: INSULIN ASPART [NOVOLOG] 3 ML PEN SC ×6 (00:46→21:58)
[2018-03-28] MEDS: ACETYLCYSTEINE 20% 4 ML VIAL NEB ×4 (02:50→20:20)
[2018-03-28] MEDS: ALBUTEROL 0.083% (NEB) 2.5 MG/3 ML AMP HHN ×4 (02:50→20:20)
[2018-03-28] MEDS: VANCOMYCIN 500MG/NS (PMX) 100 ML IVPB ×2 (03:16→14:58)
[2018-03-28 05:01] LABS: ADD MAN DIFF? NO
[2018-03-28 05:04] LABS: BASOPHILS % 0.1 % (0.0-2.0); EOSINOPHILS % 0.4 % (0.0-7.0); HEMATOCRIT 21.9 % (42.0-52.0); HEMOGLOBIN 7.2 g/dl (14.0-18.0); LYMPHOCYTES # 0.9 10^3/ul (0.8-2.9); MEAN CORPUSCULAR HGB CONC 32.9 g/dl (32.0-37.0); MEAN CORPUSCULAR VOLUME 91.3 fl (82.0-101.0); MEAN PLATELET VOLUME 10.9 fl (7.4-10.4); MONOCYTE # 0.4 10^3/ul (0.3-0.9); MONOCYTES % 4.3 % (0.0-11.0); NEUTROPHIL # 7.1 10^3/ul (1.6-7.5); NEUTROPHILS % 83.4 % (39.0-77.0); PLATELET COUNT 124 10^3/UL (140-415); RED CELL DISTRIBUTION WIDTH 13.8 % (11.5-14.5)
[2018-03-28 05:04] LABS: WHITE BLOOD COUNT 8.6 10^3/ul (4.8-10.8)
[2018-03-28 05:46] LABS: ANION GAP 7 (5-13); BLOOD UREA NITROGEN 14 mg/dl (7-20); CALCIUM 6.9 mg/dl (8.4-10.2); CARBON DIOXIDE 34 mmol/L (21-31); CHLORIDE 101 mmol/L (97-110); CREATININE 0.66 mg/dl (0.61-1.24); GLUCOSE 185 mg/dl (70-220); SODIUM 142 mmol/L (135-144)
[2018-03-28] MEDS: PANTOPRAZOLE 40 MG INJ IV ×2 (05:52→17:05)
[2018-03-28] MEDS: LEVOTHYROXINE 50 MCG TAB PO (05:52)
[2018-03-28 08:01] LABS: POTASSIUM 2.7 mmol/L (3.5-5.1)
[2018-03-28] MEDS: MEROPENEM 1 GM/50ML(PMX) 50 ML IVPB ×2 (08:53→21:58)
[2018-03-28] MEDS: DUTASTERIDE 0.5 MG CAP PO (09:00)
[2018-03-28] MEDS: POTASSIUM CHLORIDE 50 ML IVPB ×2 (09:07→11:16)
[2018-03-28] MEDS: LEVETIRACETAM 500 MG (PMX) 100 ML IVPB ×2 (09:22→21:27)
[2018-03-28] MEDS: SUCRALFATE (100 MG/ML) 10ML CUP NGT ×4 (09:22→21:00)
[2018-03-28] MEDS: ASPIRIN 300 MG SUPP PR (09:22)
[2018-03-28] MEDS: BALSAM PERU/CASTOR OIL 60 GM TUBE TOP ×2 (09:29→22:05)
[2018-03-28] MEDS: INSULIN GLARGINE [LANTus] (100 UNITS/ML) SYG SC ×2 (09:33→21:40)
[2018-03-28] MEDS: FUROSEMIDE 20 MG INJ IV (11:17)
[2018-03-28] MEDS: CASPOFUNGIN 70 MG in SOD CHLORIDE 0.9% 250 ML IVPB (16:33)
[2018-03-28] MEDS: EZETIMIBE 10 MG TAB PO (21:00)
[2018-03-28] MEDS: ATORVASTATIN 80 MG TAB PO (21:00)
[2018-03-28] MEDS: morphine 2 MG INJ IV (22:59)
[2018-03-29] MEDS: INSULIN ASPART [NOVOLOG] 3 ML PEN SC ×6 (01:00→22:02)
[2018-03-29] MEDS: ALBUTEROL 0.083% (NEB) 2.5 MG/3 ML AMP HHN ×2 (01:06→08:39)
[2018-03-29] MEDS: ACETYLCYSTEINE 20% 4 ML VIAL NEB ×4 (01:06→19:49)
[2018-03-29] MEDS: VANCOMYCIN 500MG/NS (PMX) 100 ML IVPB (02:58)
[2018-03-29] MEDS: PANTOPRAZOLE 40 MG INJ IV ×2 (05:35→17:03)
[2018-03-29] MEDS: LEVOTHYROXINE 50 MCG TAB PO (05:55)
[2018-03-29 06:13] LABS: ANION GAP 5 (5-13); BLOOD UREA NITROGEN 12 mg/dl (7-20); CALCIUM 6.9 mg/dl (8.4-10.2); CARBON DIOXIDE 36 mmol/L (21-31); CHLORIDE 101 mmol/L (97-110); CREATININE 0.53 mg/dl (0.61-1.24); GLUCOSE 97 mg/dl (70-220); SODIUM 142 mmol/L (135-144)
[2018-03-29 06:22] LABS: POTASSIUM 2.7 mmol/L (3.5-5.1)
[2018-03-29 07:40] LABS: MAGNESIUM 1.7 mg/dl (1.7-2.5)
[2018-03-29] MEDS: POTASSIUM CHLORIDE 100 ML IVPB ×3 (07:54→15:57)
[2018-03-29] MEDS: SUCRALFATE (100 MG/ML) 10ML CUP NGT ×4 (09:00→21:00)
[2018-03-29] MEDS: INSULIN GLARGINE [LANTus] (100 UNITS/ML) SYG SC ×2 (09:00→22:02)
[2018-03-29] MEDS: DUTASTERIDE 0.5 MG CAP PO (09:00)
[2018-03-29] MEDS: BALSAM PERU/CASTOR OIL 60 GM TUBE TOP ×2 (09:21→22:26)
[2018-03-29] MEDS: FUROSEMIDE 20 MG INJ IV (09:47)
[2018-03-29] MEDS: LEVETIRACETAM 500 MG (PMX) 100 ML IVPB ×2 (10:16→21:53)
[2018-03-29] MEDS: MEROPENEM 1 GM/50ML(PMX) 50 ML IVPB ×2 (10:31→22:18)
[2018-03-29] MEDS: DEXTROSE 5%-0.45% NACL 1,000 ML IV ×2 (10:34→23:20)
[2018-03-29] MEDS: ASPIRIN 300 MG SUPP PR (11:37)
[2018-03-29] MEDS: CASPOFUNGIN 50 MG in SOD CHLORIDE 0.9% 250 ML IVPB (14:40)
[2018-03-29 14:44] LABS: POTASSIUM 3.5 mmol/L (3.5-5.1)
[2018-03-29 14:53] LABS: VANCOMYCIN,TROUGH 14.4 ug/ml (10.0-20.0)
[2018-03-29] MEDS: EZETIMIBE 10 MG TAB PO (21:00)
[2018-03-29] MEDS: ATORVASTATIN 80 MG TAB PO (21:00)
[2018-03-29] MEDS: MAGNESIUM SULFATE 3 GM in DEXTROSE 5% 100 ML IVPB (23:06)
[2018-03-30] MEDS: INSULIN ASPART [NOVOLOG] 3 ML PEN SC ×5 (01:08→17:47)
[2018-03-30] MEDS: ACETYLCYSTEINE 20% 4 ML VIAL NEB ×3 (02:35→13:40)
[2018-03-30] MEDS: PANTOPRAZOLE 40 MG INJ IV ×2 (05:36→17:58)
[2018-03-30] MEDS: LEVOTHYROXINE 50 MCG TAB PO (05:38)
[2018-03-30] MEDS: SUCRALFATE (100 MG/ML) 10ML CUP NGT ×3 (09:00→16:22)
[2018-03-30] MEDS: DUTASTERIDE 0.5 MG CAP PO (09:00)
[2018-03-30] MEDS: INSULIN GLARGINE [LANTus] (100 UNITS/ML) SYG SC (09:09)
[2018-03-30] MEDS: ASPIRIN 300 MG SUPP PR (09:11)
[2018-03-30] MEDS: FUROSEMIDE 20 MG INJ IV (09:11)
[2018-03-30] MEDS: LEVETIRACETAM 500 MG (PMX) 100 ML IVPB (09:11)
[2018-03-30] MEDS: BALSAM PERU/CASTOR OIL 60 GM TUBE TOP (09:11)
[2018-03-30 09:45] LABS: ADD MAN DIFF? NO
[2018-03-30] MEDS: MEROPENEM 1 GM/50ML(PMX) 50 ML IVPB (09:54)
[2018-03-30 10:00] LABS: BASOPHILS % 0.2 % (0.0-2.0); EOSINOPHILS # 0.1 10^3/ul (0.0-0.5); EOSINOPHILS % 1.4 % (0.0-7.0); HEMATOCRIT 24.6 % (42.0-52.0); HEMOGLOBIN 7.9 g/dl (14.0-18.0); LYMPHOCYTES # 1.1 10^3/ul (0.8-2.9); LYMPHOCYTES % 22.5 % (15.0-51.0); MEAN CORPUSCULAR HEMOGLOBIN 30.3 pg (29.0-33.0); MEAN CORPUSCULAR HGB CONC 32.1 g/dl (32.0-37.0); MEAN CORPUSCULAR VOLUME 94.3 fl (82.0-101.0); MEAN PLATELET VOLUME 10.8 fl (7.4-10.4); MONOCYTE # 0.3 10^3/ul (0.3-0.9); MONOCYTES % 6.4 % (0.0-11.0); NEUTROPHIL # 3.5 10^3/ul (1.6-7.5); NEUTROPHILS % 68.9 % (39.0-77.0); PLATELET COUNT 269 10^3/UL (140-415); RED BLOOD COUNT 2.61 10^6/ul (4.70-6.10); RED CELL DISTRIBUTION WIDTH 13.4 % (11.5-14.5)
[2018-03-30 10:34] LABS: ANION GAP 7 (5-13); BLOOD UREA NITROGEN 12 mg/dl (7-20); CALCIUM 7.4 mg/dl (8.4-10.2); CARBON DIOXIDE 34 mmol/L (21-31); CHLORIDE 96 mmol/L (97-110); CREATININE 0.47 mg/dl (0.61-1.24); GLUCOSE 135 mg/dl (70-220); MAGNESIUM 2.5 mg/dl (1.7-2.5); POTASSIUM 3.3 mmol/L (3.5-5.1); SODIUM 137 mmol/L (135-144)
[2018-03-30] MEDS: DEXTROSE 5%-0.45% NACL 1,000 ML IV (12:16)
[2018-03-30] MEDS: CASPOFUNGIN 50 MG in SOD CHLORIDE 0.9% 250 ML IVPB (16:21)
[2018-03-30] MEDS ORDERED: morphine SULFATE/PF (2 MG/2 ML) SYG IV (16:30)
== END 2018-03-30 19:38 | DRG 871 ==
LOC: ICU 22:14 → TEL 03-23 16:38 → PP2 03-28 20:09 → ICU 03-25 07:03 → E/R 20:13
PROC: 0BH17EZ Insertion of Endotracheal Airway into Trachea, Via Natural or Artificial Opening (ICD-10-PCS; principal; 2018-03-20)
PROC: 5A1945Z Respiratory Ventilation, 24-96 Consecutive Hours (ICD-10-PCS; 2018-03-20)
PROC: 05HM33Z Insertion of Infusion Device into Right Internal Jugular Vein, Percutaneous Approach (ICD-10-PCS; 2018-03-20)
PROC: 0BH17EZ Insertion of Endotracheal Airway into Trachea, Via Natural or Artificial Opening (ICD-10-PCS; 2018-03-25)
PROC: 5A1945Z Respiratory Ventilation, 24-96 Consecutive Hours (ICD-10-PCS; 2018-03-25)
DX: A41.9 Sepsis, unspecified organism (principal); R65.21 Severe sepsis with septic shock; E11.10 Type 2 diabetes mellitus with ketoacidosis without coma; J96.01 Acute respiratory failure with hypoxia; G92 Toxic encephalopathy; I63.9 Cerebral infarction, unspecified; J69.0 Pneumonitis due to inhalation of food and vomit; N17.9 Acute kidney failure, unspecified; E44.0 Moderate protein-calorie malnutrition; J90 Pleural effusion, not elsewhere classified; Z68.1 Body mass index [BMI] 19.9 or less, adult; K92.2 Gastrointestinal hemorrhage, unspecified; E78.5 Hyperlipidemia, unspecified; N40.0 Benign prostatic hyperplasia without lower urinary tract symptoms; R91.1 Solitary pulmonary nodule; E03.9 Hypothyroidism, unspecified; E11.51 Type 2 diabetes mellitus with diabetic peripheral angiopathy without gangrene; Z89.421 Acquired absence of other right toe(s); E86.1 Hypovolemia; R68.0 Hypothermia, not associated with low environmental temperature; E11.40 Type 2 diabetes mellitus with diabetic neuropathy, unspecified; K22.8 Other specified diseases of esophagus; K63.9 Disease of intestine, unspecified; E83.42 Hypomagnesemia; I25.10 Atherosclerotic heart disease of native coronary artery without angina pectoris; G40.909 Epilepsy, unspecified, not intractable, without status epilepticus; I50.9 Heart failure, unspecified; D50.0 Iron deficiency anemia secondary to blood loss (chronic); D63.8 Anemia in other chronic diseases classified elsewhere; F03.90 Unspecified dementia, unspecified severity, without behavioral disturbance, psychotic disturbance, mood disturbance, and anxiety; R47.02 Dysphasia
CPT/HCPCS: 31500; 36415; 36600; 70450; 70553; 71045; 74176; 76604; 80048; 80053; 80202; 81001; 82270; 82533; 82550; 82553; 82728; 82803; 82962; 83036; 83540; 83605; 83735; 83880; 84100; 84132; 84436; 84443; 84479; 84484; 85025; 85610; 85730; 86850; 86900; 86901; 87040; 87070; 87081; 87086; 89220; 92526; 92610; 93005; 93306; 93880; 94002; 94003; 94640; 94664; 94770; 95819; 97110; 97162; 97164; 97530; 99291-25

== ENCOUNTER 2018-07-05 17:19 | Inpatient (IN) | payer MEDICARE, OTHER ==
[2018-07-05 17:47] LABS: ADD MAN DIFF? NO
[2018-07-05 17:48] LABS: ABNORMAL IP MESSAGE 1; BASOPHILS % 0.2 % (0.0-2.0); HEMATOCRIT 29.7 % (42.0-52.0); HEMOGLOBIN 9.3 g/dl (14.0-18.0); LYMPHOCYTES # 0.4 10^3/ul (0.8-2.9); LYMPHOCYTES % 4.2 % (15.0-51.0); MEAN CORPUSCULAR HEMOGLOBIN 28.6 pg (29.0-33.0); MEAN CORPUSCULAR HGB CONC 31.3 g/dl (32.0-37.0); MEAN CORPUSCULAR VOLUME 91.4 fl (82.0-101.0); MEAN PLATELET VOLUME 10.4 fl (7.4-10.4); MONOCYTE # 0.3 10^3/ul (0.3-0.9); MONOCYTES % 2.9 % (0.0-11.0); NEUTROPHIL # 9.6 10^3/ul (1.6-7.5); NEUTROPHILS % 92.1 % (39.0-77.0); PLATELET COUNT 160 10^3/UL (140-415); POSITIVE DIFF @See below; RED BLOOD COUNT 3.25 10^6/ul (4.70-6.10); RED CELL DISTRIBUTION WIDTH 13.9 % (11.5-14.5)
[2018-07-05 17:48] LABS: WHITE BLOOD COUNT 10.4 10^3/ul (4.8-10.8)
[2018-07-05 18:03] LABS: INR 1.12; PROTIME 14.5 Sec (11.9-14.9); PT RATIO 1.1
[2018-07-05 18:04] LABS: PARTIAL THROMBOPLASTIN TIME 29.5 Sec (23.0-35.0)
[2018-07-05 18:06] LABS: ALANINE AMINOTRANSFERASE 21 IU/L (13-69); ALBUMIN 3.1 g/dl (3.3-4.9); ALBUMIN/GLOBULIN RATIO 1.19; ALKALINE PHOSPHATASE 73 IU/L (42-121); ANION GAP 27 (5-13); ASPARTATE AMINO TRANSFERASE 11 IU/L (15-46); BILIRUBIN,INDIRECT 0.1 mg/dl (0-1.1); BILIRUBIN,TOTAL 0.1 mg/dl (0.2-1.3); BLOOD UREA NITROGEN 26 mg/dl (7-20); CALCIUM 8.7 mg/dl (8.4-10.2); CHLORIDE 103 mmol/L (97-110); CREATININE 0.63 mg/dl (0.61-1.24); POTASSIUM 3.9 mmol/L (3.5-5.1); SODIUM 140 mmol/L (135-144); TOTAL PROTEIN 5.7 g/dl (6.1-8.1)
[2018-07-05 18:14] LABS: CARBON DIOXIDE 10 mmol/L (21-31); GLUCOSE 411 mg/dl (70-220)
[2018-07-05] MEDS: ONDANSETRON 4 MG INJ IV (18:14)
[2018-07-05 18:16] LABS: TROPONIN-I < 0.012 ng/ml (0.000-0.120)
[2018-07-05] MEDS ORDERED: SOD CHLORIDE 0.9% 1,000 ML IV (18:16)
[2018-07-05] MEDS ORDERED: DEXTROSE 10 %/0.45 % NACL 1,000 ML IV (18:16)
[2018-07-05] MEDS ORDERED: NS + KCL 40 MEQ 1,000 ML IV (18:16)
[2018-07-05 18:24] LABS: PHOSPHORUS 4.1 mg/dl (2.5-4.9)
[2018-07-05 18:24] LABS: MAGNESIUM 1.6 mg/dl (1.7-2.5)
[2018-07-05 18:29] LABS: LACTIC ACID 1.2 mmol/L (0.5-2.0)
[2018-07-05] MEDS ORDERED: DEXTROSE 50% 50 ML SYRINGE IV ×2 (18:30)
[2018-07-05 18:34] LABS: LIPASE 26 U/L (23-300)
[2018-07-05 18:39] LABS: HEMOGLOBIN A1C 10.7 % (0-5.9)
[2018-07-05] MEDS: LACTATED RINGER S IV (18:52)
[2018-07-05] MEDS: SOD CHLORIDE 0.9% 570 ML IV (18:52)
[2018-07-05] MEDS: INSULIN REGULAR, HUMAN 100 UNIT in SOD CHLORIDE 0.9% 100 ML IV (19:08)
[2018-07-05 19:49] LABS: MODE ROOM AIR; MetHgb Venous 0.1 %; Sample Type Blood venous; Site VENOUS LINE; Venous COHb 0.3 %; Venous Oxygen Sat 94.4 mmHG (55.0-75.0); Venous Total Hemglobin 10.1 g/dl
[2018-07-05 21:35] LABS: ANION GAP 23 (5-13); BLOOD UREA NITROGEN 25 mg/dl (7-20); CALCIUM 8.2 mg/dl (8.4-10.2); CHLORIDE 107 mmol/L (97-110); CREATININE 0.59 mg/dl (0.61-1.24); GLUCOSE 311 mg/dl (70-220); MAGNESIUM 1.5 mg/dl (1.7-2.5); PHOSPHORUS 3.5 mg/dl (2.5-4.9); POTASSIUM 3.5 mmol/L (3.5-5.1); SODIUM 138 mmol/L (135-144)
[2018-07-05 21:47] LABS: CARBON DIOXIDE 8 mmol/L (21-31)
[2018-07-05] MEDS: NS + KCL 30 MEQ 1,000 ML IV (22:10)
[2018-07-05] MEDS: D10/0.45% NACL + KCL 30 MEQ 1,000 ML IV (22:10)
[2018-07-05 22:29] LABS: ANION GAP 21 (5-13); BLOOD UREA NITROGEN 25 mg/dl (7-20); CARBON DIOXIDE 11 mmol/L (21-31); CHLORIDE 107 mmol/L (97-110); CREATININE 0.57 mg/dl (0.61-1.24); GLUCOSE 245 mg/dl (70-220); MAGNESIUM 1.4 mg/dl (1.7-2.5); PHOSPHORUS 2.7 mg/dl (2.5-4.9); POTASSIUM 3.2 mmol/L (3.5-5.1); SODIUM 139 mmol/L (135-144)
[2018-07-06] MEDS: NS + KCL 40 MEQ 1,000 ML IV (00:10)
[2018-07-06] MEDS: D10/0.45% NACL + KCL 40 MEQ 1,000 ML IV (00:10)
[2018-07-06 02:49] LABS: MODE NASAL CANNULA; MetHgb Venous 0.3 %; Sample Type Blood venous; Site VENOUS LINE; Venous COHb 0.3 %; Venous Fraction OxyHgb 90.4 %; Venous Oxygen Sat 90.9 mmHG (55.0-75.0); Venous Total Hemglobin 10.1 g/dl
[2018-07-06 06:42] LABS: ANION GAP 11 (5-13); BLOOD UREA NITROGEN 21 mg/dl (7-20); CALCIUM 7.8 mg/dl (8.4-10.2); CARBON DIOXIDE 17 mmol/L (21-31); CHLORIDE 112 mmol/L (97-110); CREATININE 0.48 mg/dl (0.61-1.24); GLUCOSE 157 mg/dl (70-220); MAGNESIUM 1.3 mg/dl (1.7-2.5); PHOSPHORUS 1.6 mg/dl (2.5-4.9); POTASSIUM 4.5 mmol/L (3.5-5.1); SODIUM 140 mmol/L (135-144)
[2018-07-06] MEDS: MAGNESIUM SULFATE 3 GM in DEXTROSE 5% 100 ML IVPB (09:53)
[2018-07-06] MEDS: INSULIN GLARGINE [LANTus] (100 UNITS/ML) SYG SC (10:15)
[2018-07-06 10:44] LABS: ANION GAP 11 (5-13); BLOOD UREA NITROGEN 18 mg/dl (7-20); CARBON DIOXIDE 16 mmol/L (21-31); CHLORIDE 111 mmol/L (97-110); CREATININE 0.45 mg/dl (0.61-1.24); GLUCOSE 122 mg/dl (70-220); MAGNESIUM 1.6 mg/dl (1.7-2.5); PHOSPHORUS 1.8 mg/dl (2.5-4.9); POTASSIUM 4.3 mmol/L (3.5-5.1); SODIUM 138 mmol/L (135-144)
[2018-07-06] MEDS: INSULIN ASPART [NOVOLOG] 3 ML PEN SC ×5 (11:52→21:00)
[2018-07-06] MEDS: POTASSIUM PHOSPHATE 20 MEQ in SOD CHLORIDE 0.9% 250 ML IVPB (14:38)
[2018-07-06 14:57] LABS: ADD UMIC YES; UR ASCORBIC ACID NEGATIVE (NEGATIVE); UR BACTERIA FEW /HPF (NONE SEEN); UR BILIRUBIN (Dip) NEGATIVE (NEGATIVE); UR BLOOD (Dip) 1+ mg/dL (NEGATIVE); UR CLARITY SLIGHTLY CLOUDY (CLEAR); UR COLOR YELLOW (YELLOW); UR GLUCOSE (Dip) 3+ mg/dL (NEGATIVE); UR KETONES (Dip) 2+ mg/dL (NEGATIVE); UR LEUKOCYTE ESTERASE (Dip) 3+ Leu/ul (NEGATIVE); UR NITRITE (Dip) NEGATIVE (NEGATIVE); UR RBC 4 /HPF (0-5); UR SPECIFIC GRAVITY (Dip) 1.013 (1.003-1.030); UR TOTAL PROTEIN (Dip) 1+ mg/dl (NEGATIVE); UR UROBILINOGEN (Dip) NEGATIVE (NEGATIVE); UR WBC > 182 /HPF (0-5)
[2018-07-06] MEDS: NS + KCL 20 MEQ 1,000 ML IV (15:06)
[2018-07-06] MEDS ORDERED: PENDING SANTYL ORDER FOR WOUND CARE XX (19:00)
[2018-07-07] MEDS: NS + KCL 20 MEQ 1,000 ML IV ×2 (01:02→10:43)
[2018-07-07] MEDS: GABAPENTIN 300 MG CAP PO (01:32)
[2018-07-07] MEDS: ACCU-CHEK XX (01:38)
[2018-07-07] MEDS ORDERED: ACCU-CHEK XX (02:00)
[2018-07-07 06:27] LABS: ADD MAN DIFF? NO
[2018-07-07 06:31] LABS: BASOPHILS % 0.1 % (0.0-2.0); EOSINOPHILS % 0.2 % (0.0-7.0); HEMATOCRIT 25.4 % (42.0-52.0); HEMOGLOBIN 8.5 g/dl (14.0-18.0); LYMPHOCYTES % 18.9 % (15.0-51.0); MEAN CORPUSCULAR HEMOGLOBIN 28.7 pg (29.0-33.0); MEAN CORPUSCULAR HGB CONC 33.5 g/dl (32.0-37.0); MEAN CORPUSCULAR VOLUME 85.8 fl (82.0-101.0); MEAN PLATELET VOLUME 9.9 fl (7.4-10.4); MONOCYTE # 0.9 10^3/ul (0.3-0.9); MONOCYTES % 8.3 % (0.0-11.0); NEUTROPHIL # 7.6 10^3/ul (1.6-7.5); NEUTROPHILS % 72.2 % (39.0-77.0); PLATELET COUNT 175 10^3/UL (140-415); RED BLOOD COUNT 2.96 10^6/ul (4.70-6.10); RED CELL DISTRIBUTION WIDTH 14.5 % (11.5-14.5)
[2018-07-07 06:31] LABS: WHITE BLOOD COUNT 10.6 10^3/ul (4.8-10.8)
[2018-07-07 06:59] LABS: ANION GAP 7 (5-13); BLOOD UREA NITROGEN 9 mg/dl (7-20); CALCIUM 7.5 mg/dl (8.4-10.2); CARBON DIOXIDE 23 mmol/L (21-31); CHLORIDE 108 mmol/L (97-110); GLUCOSE 86 mg/dl (70-220); MAGNESIUM 1.7 mg/dl (1.7-2.5); PHOSPHORUS 1.7 mg/dl (2.5-4.9); POTASSIUM 3.4 mmol/L (3.5-5.1); SODIUM 138 mmol/L (135-144)
[2018-07-07] MEDS: INSULIN ASPART [NOVOLOG] 3 ML PEN SC ×7 (07:55→20:42)
[2018-07-07] MEDS: INSULIN GLARGINE [LANTus] (100 UNITS/ML) SYG SC (08:00)
[2018-07-07] MEDS: POTASSIUM CHLORIDE (SR) 20 MEQ TAB PO (17:12)
[2018-07-07] MEDS: PANTOPRAZOLE (EC) 40 MG TAB PO (17:12)
[2018-07-07] MEDS: CEFTRIAXONE 1 GM/50 ML (PMX) 50 ML IVPB (17:13)
[2018-07-07] MEDS ORDERED: ACETAMINOPHEN 325 MG TAB PO (17:30)
[2018-07-07] MEDS: HYDROCODONE/APAP (5/325) TAB PO ×2 (18:03→22:10)
[2018-07-08] MEDS: NS + KCL 20 MEQ 1,000 ML IV ×2 (01:08→20:37)
[2018-07-08] MEDS: ACCU-CHEK XX (01:11)
[2018-07-08 06:58] LABS: ADD MAN DIFF? NO
[2018-07-08 07:00] LABS: BASOPHILS % 0.1 % (0.0-2.0); EOSINOPHILS % 0.4 % (0.0-7.0); HEMATOCRIT 32.1 % (42.0-52.0); HEMOGLOBIN 10.5 g/dl (14.0-18.0); LYMPHOCYTES # 1.7 10^3/ul (0.8-2.9); LYMPHOCYTES % 24.4 % (15.0-51.0); MEAN CORPUSCULAR HEMOGLOBIN 28.3 pg (29.0-33.0); MEAN CORPUSCULAR HGB CONC 32.7 g/dl (32.0-37.0); MEAN CORPUSCULAR VOLUME 86.5 fl (82.0-101.0); MEAN PLATELET VOLUME 9.7 fl (7.4-10.4); MONOCYTE # 0.7 10^3/ul (0.3-0.9); MONOCYTES % 9.5 % (0.0-11.0); NEUTROPHIL # 4.5 10^3/ul (1.6-7.5); NEUTROPHILS % 65.2 % (39.0-77.0); PLATELET COUNT 194 10^3/UL (140-415); RED BLOOD COUNT 3.71 10^6/ul (4.70-6.10); RED CELL DISTRIBUTION WIDTH 14.6 % (11.5-14.5)
[2018-07-08 07:00] LABS: WHITE BLOOD COUNT 6.8 10^3/ul (4.8-10.8)
[2018-07-08 07:30] LABS: ANION GAP 11 (5-13); BLOOD UREA NITROGEN 7 mg/dl (7-20); CARBON DIOXIDE 27 mmol/L (21-31); CHLORIDE 100 mmol/L (97-110); CREATININE 0.39 mg/dl (0.61-1.24); GLUCOSE 195 mg/dl (70-220); MAGNESIUM 1.4 mg/dl (1.7-2.5); POTASSIUM 4.3 mmol/L (3.5-5.1); SODIUM 138 mmol/L (135-144)
[2018-07-08] MEDS: INSULIN ASPART [NOVOLOG] 3 ML PEN SC ×7 (07:58→21:00)
[2018-07-08] MEDS: PANTOPRAZOLE (EC) 40 MG TAB PO (08:24)
[2018-07-08] MEDS: INSULIN GLARGINE [LANTus] (100 UNITS/ML) SYG SC (09:13)
[2018-07-08] MEDS: CEFTRIAXONE 1 GM/50 ML (PMX) 50 ML IVPB (16:57)
[2018-07-08] MEDS: MAGNESIUM SULFATE 4 GM/100 ML 100 ML IVPB (18:12)
[2018-07-08] MEDS: POTASSIUM PHOSPHATE 20 MEQ in SOD CHLORIDE 0.9% 250 ML IVPB (19:06)
[2018-07-08] MEDS: HYDROCODONE/APAP (5/325) TAB PO (19:29)
[2018-07-09] MEDS: NS + KCL 20 MEQ 1,000 ML IV (00:22)
[2018-07-09] MEDS: ACCU-CHEK XX (02:00)
[2018-07-09] MEDS: INSULIN ASPART [NOVOLOG] 3 ML PEN SC ×7 (08:17→20:07)
[2018-07-09] MEDS: PANTOPRAZOLE (EC) 40 MG TAB PO (08:28)
[2018-07-09] MEDS: INSULIN GLARGINE [LANTus] (100 UNITS/ML) SYG SC (08:30)
[2018-07-09 08:59] LABS: ADD MAN DIFF? NO
[2018-07-09 09:05] LABS: WHITE BLOOD COUNT 6.4 10^3/ul (4.8-10.8)
[2018-07-09 09:05] LABS: BASOPHILS % 0.2 % (0.0-2.0); EOSINOPHILS # 0.1 10^3/ul (0.0-0.5); EOSINOPHILS % 0.8 % (0.0-7.0); HEMATOCRIT 31.7 % (42.0-52.0); HEMOGLOBIN 10.4 g/dl (14.0-18.0); LYMPHOCYTES # 1.3 10^3/ul (0.8-2.9); LYMPHOCYTES % 20.7 % (15.0-51.0); MEAN CORPUSCULAR HEMOGLOBIN 28.3 pg (29.0-33.0); MEAN CORPUSCULAR HGB CONC 32.8 g/dl (32.0-37.0); MEAN CORPUSCULAR VOLUME 86.4 fl (82.0-101.0); MEAN PLATELET VOLUME 9.6 fl (7.4-10.4); MONOCYTE # 0.6 10^3/ul (0.3-0.9); MONOCYTES % 8.6 % (0.0-11.0); NEUTROPHIL # 4.5 10^3/ul (1.6-7.5); NEUTROPHILS % 69.2 % (39.0-77.0); PLATELET COUNT 195 10^3/UL (140-415); RED BLOOD COUNT 3.67 10^6/ul (4.70-6.10); RED CELL DISTRIBUTION WIDTH 14.6 % (11.5-14.5)
[2018-07-09 09:33] LABS: ANION GAP 7 (5-13); BLOOD UREA NITROGEN 10 mg/dl (7-20); CALCIUM 8.1 mg/dl (8.4-10.2); CARBON DIOXIDE 30 mmol/L (21-31); CHLORIDE 98 mmol/L (97-110); CREATININE 0.42 mg/dl (0.61-1.24); GLUCOSE 281 mg/dl (70-220); MAGNESIUM 2.2 mg/dl (1.7-2.5); POTASSIUM 4.2 mmol/L (3.5-5.1); SODIUM 135 mmol/L (135-144)
[2018-07-09 09:42] LABS: PHOSPHORUS 2.9 mg/dl (2.5-4.9)
[2018-07-09] MEDS ORDERED: COLLAGENASE 5 GM (UD JAR) TOP (14:00)
[2018-07-09] MEDS: ONDANSETRON 4 MG INJ IV (14:28)
[2018-07-09] MEDS ORDERED: AL HYDROX/MG HYDROX/SIMETH 30 ML CUP PO (16:00)
[2018-07-09] MEDS ORDERED: ALUMINUM HYDROXIDE 30 ML CUP PO (16:00)
[2018-07-09] MEDS: CEFTRIAXONE 1 GM/50 ML (PMX) 50 ML IVPB (16:12)
[2018-07-09] MEDS: COLLAGENASE 5 GM (UD JAR) TOP (16:13)
[2018-07-09] MEDS: SUCRALFATE (100 MG/ML) 10ML CUP PO ×2 (17:14→20:06)
[2018-07-09] MEDS: HYDROCODONE/APAP (5/325) TAB PO (17:19)
[2018-07-09] MEDS: CEPASTAT LOZENGE MT (22:47)
[2018-07-10] MEDS: CEPASTAT LOZENGE MT ×3 (00:13→20:31)
[2018-07-10] MEDS: NS + KCL 20 MEQ 1,000 ML IV (01:35)
[2018-07-10] MEDS: HYDROCODONE/APAP (5/325) TAB PO (01:35)
[2018-07-10] MEDS: ACCU-CHEK XX (02:00)
[2018-07-10 06:34] LABS: ADD MAN DIFF? NO
[2018-07-10 06:40] LABS: WHITE BLOOD COUNT 6.7 10^3/ul (4.8-10.8)
[2018-07-10 06:40] LABS: BASOPHILS % 0.3 % (0.0-2.0); EOSINOPHILS # 0.1 10^3/ul (0.0-0.5); EOSINOPHILS % 0.9 % (0.0-7.0); HEMATOCRIT 33.9 % (42.0-52.0); HEMOGLOBIN 10.9 g/dl (14.0-18.0); LYMPHOCYTES # 1.7 10^3/ul (0.8-2.9); LYMPHOCYTES % 25.1 % (15.0-51.0); MEAN CORPUSCULAR HEMOGLOBIN 27.9 pg (29.0-33.0); MEAN CORPUSCULAR HGB CONC 32.2 g/dl (32.0-37.0); MEAN CORPUSCULAR VOLUME 86.7 fl (82.0-101.0); MEAN PLATELET VOLUME 9.2 fl (7.4-10.4); MONOCYTE # 0.6 10^3/ul (0.3-0.9); MONOCYTES % 9.4 % (0.0-11.0); NEUTROPHIL # 4.3 10^3/ul (1.6-7.5); PLATELET COUNT 212 10^3/UL (140-415); RED BLOOD COUNT 3.91 10^6/ul (4.70-6.10); RED CELL DISTRIBUTION WIDTH 14.8 % (11.5-14.5)
[2018-07-10 07:02] LABS: ALANINE AMINOTRANSFERASE 19 IU/L (13-69); ALBUMIN 3.2 g/dl (3.3-4.9); ALBUMIN/GLOBULIN RATIO 1.03; ALKALINE PHOSPHATASE 69 IU/L (42-121); ANION GAP 8 (5-13); ASPARTATE AMINO TRANSFERASE 17 IU/L (15-46); BILIRUBIN,INDIRECT 0.1 mg/dl (0-1.1); BILIRUBIN,TOTAL 0.1 mg/dl (0.2-1.3); BLOOD UREA NITROGEN 11 mg/dl (7-20); CALCIUM 8.5 mg/dl (8.4-10.2); CARBON DIOXIDE 33 mmol/L (21-31); CHLORIDE 96 mmol/L (97-110); GLUCOSE 214 mg/dl (70-220); POTASSIUM 4.5 mmol/L (3.5-5.1); SODIUM 137 mmol/L (135-144); TOTAL PROTEIN 6.3 g/dl (6.1-8.1)
[2018-07-10] MEDS: INSULIN GLARGINE [LANTus] (100 UNITS/ML) SYG SC (08:00)
[2018-07-10] MEDS: PANTOPRAZOLE (EC) 40 MG TAB PO (08:07)
[2018-07-10] MEDS: COLLAGENASE 5 GM (UD JAR) TOP (08:07)
[2018-07-10] MEDS: SUCRALFATE (100 MG/ML) 10ML CUP PO ×4 (08:07→20:30)
[2018-07-10] MEDS: INSULIN ASPART [NOVOLOG] 3 ML PEN SC ×7 (08:12→20:54)
[2018-07-10] MEDS: CEFTRIAXONE 1 GM/50 ML (PMX) 50 ML IVPB (16:53)
[2018-07-10] MEDS: ONDANSETRON 4 MG INJ IV (20:30)
[2018-07-10] MEDS: MAGNESIUM HYDROXIDE 30ML CUP PO (20:31)
[2018-07-11] MEDS: NS + KCL 20 MEQ 1,000 ML IV (01:06)
[2018-07-11] MEDS: ACCU-CHEK XX (01:14)
[2018-07-11 06:31] LABS: WHITE BLOOD COUNT 10.7 10^3/ul (4.8-10.8)
[2018-07-11 06:31] LABS: HEMOGLOBIN 11.6 g/dl (14.0-18.0); MEAN CORPUSCULAR HGB CONC 32.2 g/dl (32.0-37.0); MEAN PLATELET VOLUME 9.2 fl (7.4-10.4); PLATELET COUNT 231 10^3/UL (140-415); POSITIVE DIFF @See below; RED BLOOD COUNT 4.14 10^6/ul (4.70-6.10); RED CELL DISTRIBUTION WIDTH 14.7 % (11.5-14.5)
[2018-07-11 06:54] LABS: PHOSPHORUS 2.5 mg/dl (2.5-4.9)
[2018-07-11 06:54] LABS: MAGNESIUM 1.7 mg/dl (1.7-2.5)
[2018-07-11 07:00] LABS: ADD MAN DIFF? YES
[2018-07-11 07:01] LABS: ANION GAP 10 (5-13); BLOOD UREA NITROGEN 16 mg/dl (7-20); CALCIUM 8.7 mg/dl (8.4-10.2); CARBON DIOXIDE 30 mmol/L (21-31); CHLORIDE 96 mmol/L (97-110); CREATININE 0.48 mg/dl (0.61-1.24); GLUCOSE 223 mg/dl (70-220); POTASSIUM 4.6 mmol/L (3.5-5.1); SODIUM 136 mmol/L (135-144)
[2018-07-11] MEDS: INSULIN GLARGINE [LANTus] (100 UNITS/ML) SYG SC (07:57)
[2018-07-11] MEDS: INSULIN ASPART [NOVOLOG] 3 ML PEN SC ×7 (07:58→20:33)
[2018-07-11 08:21] LABS: ANISOCYTOSIS 1+ (0-0); BAND NEUTROPHILS #M 1.8 10^3/ul (0.0-0.6); BAND NEUTROPHILS % (M) 17 % (0-4); BURR CELLS 1+ (0-0); LYMPHOCYTES #M 1.6 10^3/ul (0.8-2.9); LYMPHOCYTES % (M) 15 % (15-51); MICROCYTOSIS 1+ (0-0); MONOCYTE #M 0.4 10^3/ul (0.3-0.9); MONOCYTES % (M) 4 % (0-11); OVALOCYTES 1+ (0-0); PLATELET ESTIMATE NORMAL; POIKILOCYTOSIS 2+ (0-0); POLYCHROMASIA 3+ (0-0); REACTIVE LYMPHOCYTES #M 0.6 10^3/ul (0.0-0.0); REACTIVE LYMPHOCYTES% (M) 6 % (0-0); SEG NEUT #M 6.4 10^3/ul (1.6-7.5); SEGMENTED NEUTROPHILS (M) % 58 % (39-77); SMUDGE%M 9 % (0-0); TARGET CELLS 1+ (0-0)
[2018-07-11] MEDS: PANTOPRAZOLE (EC) 40 MG TAB PO (08:43)
[2018-07-11] MEDS: SUCRALFATE (100 MG/ML) 10ML CUP PO ×4 (08:43→20:02)
[2018-07-11] MEDS: COLLAGENASE 5 GM (UD JAR) TOP (08:44)
[2018-07-11] MEDS: CEPASTAT LOZENGE MT ×3 (12:25→21:53)
[2018-07-11] MEDS: CEFTRIAXONE 1 GM/50 ML (PMX) 50 ML IVPB (16:02)
[2018-07-12] MEDS: NS + KCL 20 MEQ 1,000 ML IV (01:09)
[2018-07-12] MEDS: ACCU-CHEK XX (01:20)
[2018-07-12] MEDS: HYDROCODONE/APAP (5/325) TAB PO ×2 (04:29→17:38)
[2018-07-12] MEDS: INSULIN ASPART [NOVOLOG] 3 ML PEN SC ×7 (08:51→20:27)
[2018-07-12] MEDS: PANTOPRAZOLE (EC) 40 MG TAB PO (10:02)
[2018-07-12] MEDS: COLLAGENASE 5 GM (UD JAR) TOP (10:02)
[2018-07-12] MEDS: SUCRALFATE (100 MG/ML) 10ML CUP PO ×4 (10:02→21:45)
[2018-07-12] MEDS: INSULIN GLARGINE [LANTus] (100 UNITS/ML) SYG SC (11:33)
[2018-07-12] MEDS: CEFTRIAXONE 1 GM/50 ML (PMX) 50 ML IVPB (17:37)
[2018-07-13] MEDS: NS + KCL 20 MEQ 1,000 ML IV ×2 (01:43→20:37)
[2018-07-13] MEDS: ACCU-CHEK XX (01:49)
[2018-07-13] MEDS: INSULIN ASPART [NOVOLOG] 3 ML PEN SC ×7 (07:55→20:34)
[2018-07-13] MEDS: COLLAGENASE 5 GM (UD JAR) TOP (08:50)
[2018-07-13] MEDS: PANTOPRAZOLE (EC) 40 MG TAB PO (08:50)
[2018-07-13] MEDS: SUCRALFATE (100 MG/ML) 10ML CUP PO ×4 (08:50→20:13)
[2018-07-13] MEDS: INSULIN GLARGINE [LANTus] (100 UNITS/ML) SYG SC (09:35)
[2018-07-13] MEDS: PANTOPRAZOLE 40 MG INJ IV (18:39)
[2018-07-13] MEDS: METOCLOPRAMIDE 10 MG INJ IV ×2 (18:39→23:04)
[2018-07-13] MEDS: BISACODYL (EC) 5 MG TAB PO (18:40)
[2018-07-13] MEDS: CEFTRIAXONE 1 GM/50 ML (PMX) 50 ML IVPB (18:40)
[2018-07-13] MEDS: FLUCONAZOLE 100 MG TAB PO (18:45)
[2018-07-13] MEDS: POLYETHYLENE GLYCOL 3350 119 GM POWDER PO (18:45)
[2018-07-13] MEDS: MAGNESIUM CITRATE 300 ML BTL PO (20:13)
[2018-07-14] MEDS: NS + KCL 20 MEQ 1,000 ML IV (01:33)
[2018-07-14] MEDS: ACCU-CHEK XX (01:36)
[2018-07-14] MEDS: METOCLOPRAMIDE 10 MG INJ IV ×3 (05:28→18:28)
[2018-07-14] MEDS: PANTOPRAZOLE 40 MG INJ IV ×2 (05:28→18:28)
[2018-07-14] MEDS: POLYETHYLENE GLYCOL 3350 119 GM POWDER PO (05:36)
[2018-07-14] MEDS ORDERED: PHENYLephrine (100 MCG/ML) 5ML SYG (07:00)
[2018-07-14] MEDS: BISACODYL (EC) 5 MG TAB PO (07:42)
[2018-07-14] MEDS: INSULIN GLARGINE [LANTus] (100 UNITS/ML) SYG SC (07:51)
[2018-07-14] MEDS: INSULIN ASPART [NOVOLOG] 3 ML PEN SC ×8 (07:55→23:01)
[2018-07-14] MEDS: SUCRALFATE (100 MG/ML) 10ML CUP PO ×4 (08:40→20:57)
[2018-07-14] MEDS: FLUCONAZOLE 100 MG TAB PO (08:40)
[2018-07-14] MEDS: COLLAGENASE 5 GM (UD JAR) TOP (08:43)
[2018-07-14 15:53] LABS: ADD MAN DIFF? NO
[2018-07-14 15:56] LABS: WHITE BLOOD COUNT 7.3 10^3/ul (4.8-10.8)
[2018-07-14 15:56] LABS: BASOPHILS % 0.3 % (0.0-2.0); EOSINOPHILS % 0.4 % (0.0-7.0); HEMATOCRIT 35.4 % (42.0-52.0); HEMOGLOBIN 11.2 g/dl (14.0-18.0); LYMPHOCYTES # 1.6 10^3/ul (0.8-2.9); LYMPHOCYTES % 22.4 % (15.0-51.0); MEAN CORPUSCULAR HEMOGLOBIN 27.9 pg (29.0-33.0); MEAN CORPUSCULAR HGB CONC 31.6 g/dl (32.0-37.0); MEAN CORPUSCULAR VOLUME 88.3 fl (82.0-101.0); MEAN PLATELET VOLUME 8.4 fl (7.4-10.4); MONOCYTE # 0.9 10^3/ul (0.3-0.9); MONOCYTES % 11.9 % (0.0-11.0); NEUTROPHIL # 4.7 10^3/ul (1.6-7.5); NEUTROPHILS % 64.6 % (39.0-77.0); PLATELET COUNT 256 10^3/UL (140-415); RED BLOOD COUNT 4.01 10^6/ul (4.70-6.10); RED CELL DISTRIBUTION WIDTH 14.6 % (11.5-14.5)
[2018-07-14] MEDS ORDERED: ONDANSETRON 4 MG INJ IV (16:00)
[2018-07-14 16:15] LABS: ANION GAP 7 (5-13); BLOOD UREA NITROGEN 7 mg/dl (7-20); CARBON DIOXIDE 30 mmol/L (21-31); CHLORIDE 101 mmol/L (97-110); CREATININE 0.43 mg/dl (0.61-1.24); GLUCOSE 64 mg/dl (70-220); MAGNESIUM 1.9 mg/dl (1.7-2.5); PHOSPHORUS 2.8 mg/dl (2.5-4.9); POTASSIUM 3.6 mmol/L (3.5-5.1); SODIUM 138 mmol/L (135-144)
[2018-07-14 16:57] LABS: HIV 1&2 ANTIBODY NEGATIVE (NEGATIVE)
[2018-07-14] MEDS: PROPOFOL 20 ML (21:01)
[2018-07-14] MEDS: PROPOFOL 40 ML (21:02)
[2018-07-14] MEDS: EPHEDrine 25 MG/5 ML SYG (21:02)
[2018-07-14] MEDS: DEXTROSE 50% 50 ML SYRINGE (21:02)
[2018-07-14] MEDS: LIDOCAINE 2% (SDV) 5 ML INJ (21:02)
[2018-07-15] MEDS: METOCLOPRAMIDE 10 MG INJ IV ×5 (01:03→23:24)
[2018-07-15] MEDS: NS + KCL 20 MEQ 1,000 ML IV ×2 (01:04→12:37)
[2018-07-15] MEDS: ACCU-CHEK XX (02:45)
[2018-07-15] MEDS: PANTOPRAZOLE 40 MG INJ IV ×2 (05:29→18:53)
[2018-07-15] MEDS: INSULIN ASPART [NOVOLOG] 3 ML PEN SC ×7 (07:55→20:58)
[2018-07-15] MEDS: FLUCONAZOLE 100 MG TAB PO (08:25)
[2018-07-15] MEDS: COLLAGENASE 5 GM (UD JAR) TOP (08:26)
[2018-07-15] MEDS: SUCRALFATE (100 MG/ML) 10ML CUP PO ×4 (08:26→20:33)
[2018-07-15] MEDS: INSULIN GLARGINE [LANTus] (100 UNITS/ML) SYG SC (08:43)
[2018-07-16] MEDS: CEPASTAT LOZENGE MT (00:18)
[2018-07-16] MEDS: ACCU-CHEK XX (02:32)
[2018-07-16] MEDS: PANTOPRAZOLE 40 MG INJ IV (05:29)
[2018-07-16] MEDS: METOCLOPRAMIDE 10 MG INJ IV ×3 (05:30→12:15)
[2018-07-16] MEDS: NS + KCL 20 MEQ 1,000 ML IV (08:37)
[2018-07-16] MEDS: FLUCONAZOLE 100 MG TAB PO (08:50)
[2018-07-16] MEDS: SUCRALFATE (100 MG/ML) 10ML CUP PO ×2 (08:50→12:15)
[2018-07-16] MEDS: COLLAGENASE 5 GM (UD JAR) TOP (08:51)
[2018-07-16] MEDS: INSULIN ASPART [NOVOLOG] 3 ML PEN SC ×4 (08:57→12:22)
[2018-07-16] MEDS: INSULIN GLARGINE [LANTus] (100 UNITS/ML) SYG SC (09:05)
== END 2018-07-16 15:04 | disposition home or self-care (01) | DRG 638 ==
LOC: TEL 07-12 03:48 → E/R 17:19 → TEL 18:22
PROC: 0DB68ZX Excision of Stomach, Via Natural or Artificial Opening Endoscopic, Diagnostic (ICD-10-PCS; principal; 2018-07-13 13:32)
PROC: 0DB48ZX Excision of Esophagogastric Junction, Via Natural or Artificial Opening Endoscopic, Diagnostic (ICD-10-PCS; 2018-07-13 13:32)
PROC: 0DBP8ZX Excision of Rectum, Via Natural or Artificial Opening Endoscopic, Diagnostic (ICD-10-PCS; 2018-07-13 13:32)
DX: E11.10 Type 2 diabetes mellitus with ketoacidosis without coma (principal); N39.0 Urinary tract infection, site not specified; K22.10 Ulcer of esophagus without bleeding; B37.81 Candidal esophagitis; R55 Syncope and collapse; E83.42 Hypomagnesemia; E83.39 Other disorders of phosphorus metabolism; D63.8 Anemia in other chronic diseases classified elsewhere; F03.90 Unspecified dementia, unspecified severity, without behavioral disturbance, psychotic disturbance, mood disturbance, and anxiety; K64.8 Other hemorrhoids; K44.9 Diaphragmatic hernia without obstruction or gangrene; Z79.4 Long term (current) use of insulin
CPT/HCPCS: 36415; 71045; 74018; 74230; 80048; 80053; 81001; 82803; 82962; 83036; 83605; 83690; 83735; 84100; 84484; 85025; 85610; 85730; 86703; 87040-91; 88305; 88312; 88313; 92610; 92611; 93005; 93880; 96374; 97162; 99291-25

== ENCOUNTER 2018-07-29 20:33 | Inpatient (IN) | payer MEDICARE, OTHER ==
[2018-07-29] MEDS: SOD CHLORIDE 0.9% 1,000 ML IV ×2 (00:44→22:19)
[2018-07-29 20:56] LABS: ADD MAN DIFF? NO
[2018-07-29 20:59] LABS: BASOPHILS % 0.3 % (0.0-2.0); EOSINOPHILS % 0.3 % (0.0-7.0); HEMATOCRIT 34.1 % (42.0-52.0); LYMPHOCYTES # 1.3 10^3/ul (0.8-2.9); LYMPHOCYTES % 20.1 % (15.0-51.0); MEAN CORPUSCULAR HEMOGLOBIN 27.5 pg (29.0-33.0); MEAN CORPUSCULAR HGB CONC 32.3 g/dl (32.0-37.0); MEAN CORPUSCULAR VOLUME 85.3 fl (82.0-101.0); MONOCYTE # 0.6 10^3/ul (0.3-0.9); MONOCYTES % 8.7 % (0.0-11.0); NEUTROPHIL # 4.7 10^3/ul (1.6-7.5); NEUTROPHILS % 69.8 % (39.0-77.0); PLATELET COUNT 281 10^3/UL (140-415); POSITIVE DIFF @See below; RED CELL DISTRIBUTION WIDTH 14.3 % (11.5-14.5)
[2018-07-29 20:59] LABS: WHITE BLOOD COUNT 6.7 10^3/ul (4.8-10.8)
[2018-07-29] MEDS: SOD CHLORIDE 0.9% 700 ML IV (21:02)
[2018-07-29 21:18] LABS: PROTIME 14.3 Sec (11.9-14.9); PT RATIO 1.1
[2018-07-29 21:19] LABS: PARTIAL THROMBOPLASTIN TIME 29.9 Sec (23.0-35.0)
[2018-07-29 21:20] LABS: ALANINE AMINOTRANSFERASE 12 IU/L (13-69); ALBUMIN 3.6 g/dl (3.3-4.9); ALBUMIN/GLOBULIN RATIO 1.05; ALKALINE PHOSPHATASE 79 IU/L (42-121); ANION GAP 16 (5-13); ASPARTATE AMINO TRANSFERASE 10 IU/L (15-46); BILIRUBIN,INDIRECT 0.4 mg/dl (0-1.1); BILIRUBIN,TOTAL 0.4 mg/dl (0.2-1.3); BLOOD UREA NITROGEN 19 mg/dl (7-20); CALCIUM 9.2 mg/dl (8.4-10.2); CARBON DIOXIDE 28 mmol/L (21-31); CHLORIDE 92 mmol/L (97-110); CREATININE 0.81 mg/dl (0.61-1.24); GLUCOSE 378 mg/dl (70-220); MAGNESIUM 1.2 mg/dl (1.7-2.5); MODE ROOM AIR; MetHgb Venous 1.2 %; PHOSPHORUS 3.2 mg/dl (2.5-4.9); POTASSIUM 3.8 mmol/L (3.5-5.1); SODIUM 136 mmol/L (135-144); Sample Type Blood venous; Site VENOUS LINE; Venous COHb 0.3 %; Venous Fraction OxyHgb 24.9 %; Venous Oxygen Sat 25.3 mmHG (55.0-75.0); Venous Total Hemglobin 10.6 g/dl
[2018-07-29 21:28] LABS: TROPONIN-I < 0.012 ng/ml (0.000-0.120)
[2018-07-29 21:31] LABS: ADD UMIC YES; UR ASCORBIC ACID NEGATIVE (NEGATIVE); UR BILIRUBIN (Dip) NEGATIVE (NEGATIVE); UR BLOOD (Dip) 2+ mg/dL (NEGATIVE); UR BUDDING YEAST MODERATE /HPF (NONE SEEN); UR CLARITY TURBID (CLEAR); UR COLOR AMBER (YELLOW); UR GLUCOSE (Dip) 3+ mg/dL (NEGATIVE); UR KETONES (Dip) 1+ mg/dL (NEGATIVE); UR LEUKOCYTE ESTERASE (Dip) 3+ Leu/ul (NEGATIVE); UR NITRITE (Dip) NEGATIVE (NEGATIVE); UR RBC 15 /HPF (0-5); UR SPECIFIC GRAVITY (Dip) 1.013 (1.003-1.030); UR TOTAL PROTEIN (Dip) 2+ mg/dl (NEGATIVE); UR UROBILINOGEN (Dip) NEGATIVE (NEGATIVE); UR WBC > 182 /HPF (0-5)
[2018-07-29] MEDS: CEFTRIAXONE 1 GM/50 ML (PMX) 50 ML IVPB (22:02)
[2018-07-29] MEDS: INSULIN LISPRO 100 UNIT/ML VIAL SC (22:09)
[2018-07-29] MEDS ORDERED: ACETAMINOPHEN 325 MG TAB PO ×2 (22:30→23:00)
[2018-07-29] MEDS ORDERED: ONDANSETRON 4 MG INJ IV (22:30)
[2018-07-29] MEDS: ACCU-CHEK XX (22:31)
[2018-07-29] MEDS ORDERED: NACL 0.9% 3 ML SYG IV (23:00)
[2018-07-29] MEDS ORDERED: DEXTROSE 50% 50 ML SYRINGE IV ×2 (23:45)
[2018-07-29] MEDS ORDERED: GLUCOSE GEL 15 GRAM TUBE PO (23:45)
[2018-07-29] MEDS ORDERED: GLUCAGON 1 MG INJ IM (23:45)
[2018-07-29] MEDS ORDERED: GLUCOSE GEL 15 GRAM TUBE BUCCAL (23:45)
[2018-07-30] MEDS: SOD CHLORIDE 0.9% 1,000 ML IV (00:45)
[2018-07-30] MEDS: ACCU-CHEK XX (01:59)
[2018-07-30] MEDS: HEPARIN 5,000 UNIT/1 ML VIAL SC ×3 (05:56→21:12)
[2018-07-30] MEDS: MAGNESIUM SULFATE 3 GM in DEXTROSE 5% 100 ML IVPB (07:39)
[2018-07-30] MEDS: INSULIN ASPART [NOVOLOG] 3 ML PEN SC ×5 (08:26→21:11)
[2018-07-30 08:56] LABS: MAGNESIUM 1.2 mg/dl (1.7-2.5)
[2018-07-30] MEDS ORDERED: ACETAMINOPHEN 325 MG TAB PO (10:30)
[2018-07-30] MEDS: LEVETIRACETAM 250 MG TAB PO (11:43)
[2018-07-30] MEDS: DUTASTERIDE 0.5 MG CAP PO (11:43)
[2018-07-30] MEDS: FERROUS SULFATE (EC) 325 MG TAB PO ×2 (11:43→21:10)
[2018-07-30] MEDS: ASCORBIC ACID 500 MG TAB PO (11:43)
[2018-07-30] MEDS: MULTIVITAMINS THERAPEUTIC TAB PO (11:43)
[2018-07-30] MEDS: ZINC SULFATE 220 MG CAP PO (11:43)
[2018-07-30] MEDS: FLUCONAZOLE 200 MG TAB PO (12:44)
[2018-07-30] MEDS: metFORMIN 500 MG TAB PO (17:29)
[2018-07-30] MEDS: INSULIN GLARGINE [LANTus] (100 UNITS/ML) SYG SC (21:01)
[2018-07-30] MEDS: EZETIMIBE 10 MG TAB PO (21:09)
[2018-07-30] MEDS: ATORVASTATIN 80 MG TAB PO (21:10)
[2018-07-30] MEDS: BALSAM PERU/CASTOR OIL 60 GM TUBE TOP (21:10)
[2018-07-30] MEDS: TERAZOSIN 5 MG CAP PO (21:10)
[2018-07-30] MEDS: CEFTRIAXONE 1 GM/50 ML (PMX) 50 ML IVPB (21:55)
[2018-07-31] MEDS: ACCU-CHEK XX (02:00)
[2018-07-31] MEDS: HEPARIN 5,000 UNIT/1 ML VIAL SC ×3 (05:43→21:11)
[2018-07-31 07:19] LABS: WHITE BLOOD COUNT 5.6 10^3/ul (4.8-10.8)
[2018-07-31 07:19] LABS: HEMATOCRIT 30.3 % (42.0-52.0); HEMOGLOBIN 9.7 g/dl (14.0-18.0); MEAN CORPUSCULAR HEMOGLOBIN 27.1 pg (29.0-33.0); MEAN CORPUSCULAR VOLUME 84.6 fl (82.0-101.0); MEAN PLATELET VOLUME 9.7 fl (7.4-10.4); PLATELET COUNT 245 10^3/UL (140-415); POSITIVE DIFF @See below; RED BLOOD COUNT 3.58 10^6/ul (4.70-6.10); RED CELL DISTRIBUTION WIDTH 14.5 % (11.5-14.5)
[2018-07-31 07:31] LABS: ADD MAN DIFF? YES
[2018-07-31 07:37] LABS: ALANINE AMINOTRANSFERASE 18 IU/L (13-69); ALBUMIN 2.8 g/dl (3.3-4.9); ALKALINE PHOSPHATASE 66 IU/L (42-121); ANION GAP 8 (5-13); ASPARTATE AMINO TRANSFERASE 10 IU/L (15-46); BILIRUBIN,INDIRECT 0.2 mg/dl (0-1.1); BILIRUBIN,TOTAL 0.2 mg/dl (0.2-1.3); BLOOD UREA NITROGEN 11 mg/dl (7-20); CALCIUM 7.6 mg/dl (8.4-10.2); CARBON DIOXIDE 31 mmol/L (21-31); CHLORIDE 96 mmol/L (97-110); CREATININE 0.55 mg/dl (0.61-1.24); GLUCOSE 187 mg/dl (70-220); POTASSIUM 3.1 mmol/L (3.5-5.1); SODIUM 135 mmol/L (135-144); TOTAL PROTEIN 5.9 g/dl (6.1-8.1)
[2018-07-31] MEDS: metFORMIN 500 MG TAB PO ×2 (08:00→17:17)
[2018-07-31] MEDS: INSULIN ASPART [NOVOLOG] 3 ML PEN SC ×4 (08:46→20:38)
[2018-07-31] MEDS: LEVETIRACETAM 250 MG TAB PO (08:48)
[2018-07-31] MEDS: MULTIVITAMINS THERAPEUTIC TAB PO (08:49)
[2018-07-31] MEDS: ZINC SULFATE 220 MG CAP PO (08:49)
[2018-07-31] MEDS: ASCORBIC ACID 500 MG TAB PO (09:00)
[2018-07-31] MEDS: FLUCONAZOLE 200 MG TAB PO (09:00)
[2018-07-31] MEDS: FERROUS SULFATE (EC) 325 MG TAB PO ×2 (09:00→20:39)
[2018-07-31] MEDS: DUTASTERIDE 0.5 MG CAP PO (09:02)
[2018-07-31] MEDS: ONDANSETRON 4 MG INJ IV (09:08)
[2018-07-31] MEDS: COLLAGENASE 5 GM (UD JAR) TOP (09:10)
[2018-07-31] MEDS: BALSAM PERU/CASTOR OIL 60 GM TUBE TOP ×2 (09:10→20:45)
[2018-07-31 09:59] LABS: ANISOCYTOSIS 1+ (0-0); BAND NEUTROPHILS #M 0.6 10^3/ul (0.0-0.6); BAND NEUTROPHILS % (M) 11 % (0-4); HYPOCHROMASIA 1+ (0-0); LYMPHOCYTES % (M) 19 % (15-51); METAMYELOCYTES %M 1 % (0-0); MONOCYTE #M 0.3 10^3/ul (0.3-0.9); MONOCYTES % (M) 6 % (0-11); OVALOCYTES 1+ (0-0); PLATELET ESTIMATE NORMAL; POIKILOCYTOSIS 2+ (0-0); SEG NEUT #M 3.6 10^3/ul (1.6-7.5); SEGMENTED NEUTROPHILS (M) % 63 % (39-77); SMUDGE%M 10 % (0-0); TEAR DROP CELLS 1+ (0-0); TOXIC GRANULATION 1+ (0-0)
[2018-07-31] MEDS: POTASSIUM CHLORIDE 100 ML IVPB (10:01)
[2018-07-31] MEDS: POTASSIUM CHLORIDE 20 MEQ POWDER FOR ORAL SOLN PO (12:50)
[2018-07-31] MEDS: INSULIN GLARGINE [LANTus] (100 UNITS/ML) SYG SC (20:37)
[2018-07-31] MEDS: TERAZOSIN 5 MG CAP PO (20:39)
[2018-07-31] MEDS: ATORVASTATIN 80 MG TAB PO (20:39)
[2018-07-31] MEDS: EZETIMIBE 10 MG TAB PO (20:43)
[2018-07-31] MEDS: CEFTRIAXONE 1 GM/50 ML (PMX) 50 ML IVPB (21:07)
[2018-08-01] MEDS: ACCU-CHEK XX (02:09)
[2018-08-01] MEDS ORDERED: NACL 0.9% 3 ML SYG IV (02:54)
[2018-08-01] MEDS: SOD CHLORIDE 0.9% 500 ML IV (03:07)
[2018-08-01] MEDS: HEPARIN 5,000 UNIT/1 ML VIAL SC ×3 (05:34→21:03)
[2018-08-01 06:50] LABS: WHITE BLOOD COUNT 5.5 10^3/ul (4.8-10.8)
[2018-08-01 06:50] LABS: ADD MAN DIFF? NO; BASOPHILS % 0.4 % (0.0-2.0); EOSINOPHILS % 0.4 % (0.0-7.0); HEMATOCRIT 26.5 % (42.0-52.0); HEMOGLOBIN 8.6 g/dl (14.0-18.0); LYMPHOCYTES # 2.3 10^3/ul (0.8-2.9); LYMPHOCYTES % 41.2 % (15.0-51.0); MEAN CORPUSCULAR HEMOGLOBIN 27.8 pg (29.0-33.0); MEAN CORPUSCULAR HGB CONC 32.5 g/dl (32.0-37.0); MEAN CORPUSCULAR VOLUME 85.8 fl (82.0-101.0); MEAN PLATELET VOLUME 9.4 fl (7.4-10.4); MONOCYTE # 0.5 10^3/ul (0.3-0.9); MONOCYTES % 9.7 % (0.0-11.0); NEUTROPHIL # 2.6 10^3/ul (1.6-7.5); NEUTROPHILS % 47.6 % (39.0-77.0); PLATELET COUNT 210 10^3/UL (140-415); RED BLOOD COUNT 3.09 10^6/ul (4.70-6.10); RED CELL DISTRIBUTION WIDTH 14.6 % (11.5-14.5)
[2018-08-01 07:25] LABS: ALANINE AMINOTRANSFERASE 15 IU/L (13-69); ALBUMIN 2.5 g/dl (3.3-4.9); ALBUMIN/GLOBULIN RATIO 0.92; ALKALINE PHOSPHATASE 57 IU/L (42-121); ANION GAP 7 (5-13); ASPARTATE AMINO TRANSFERASE 13 IU/L (15-46); BILIRUBIN,INDIRECT 0.2 mg/dl (0-1.1); BILIRUBIN,TOTAL 0.2 mg/dl (0.2-1.3); BLOOD UREA NITROGEN 13 mg/dl (7-20); CALCIUM 7.4 mg/dl (8.4-10.2); CARBON DIOXIDE 30 mmol/L (21-31); CHLORIDE 98 mmol/L (97-110); CREATININE 0.63 mg/dl (0.61-1.24); GLUCOSE 121 mg/dl (70-220); POTASSIUM 3.7 mmol/L (3.5-5.1); SODIUM 135 mmol/L (135-144); TOTAL PROTEIN 5.2 g/dl (6.1-8.1)
[2018-08-01] MEDS: INSULIN ASPART [NOVOLOG] 3 ML PEN SC ×4 (08:00→21:00)
[2018-08-01] MEDS: metFORMIN 500 MG TAB PO ×2 (08:35→18:02)
[2018-08-01] MEDS: LEVETIRACETAM 250 MG TAB PO (08:35)
[2018-08-01] MEDS: BALSAM PERU/CASTOR OIL 60 GM TUBE TOP ×2 (08:36→21:00)
[2018-08-01] MEDS: MULTIVITAMINS THERAPEUTIC TAB PO (08:36)
[2018-08-01] MEDS: ZINC SULFATE 220 MG CAP PO (08:36)
[2018-08-01] MEDS: ASCORBIC ACID 500 MG TAB PO (08:36)
[2018-08-01] MEDS: COLLAGENASE 5 GM (UD JAR) TOP (08:36)
[2018-08-01] MEDS: FLUCONAZOLE 200 MG TAB PO (08:36)
[2018-08-01] MEDS: DUTASTERIDE 0.5 MG CAP PO (08:36)
[2018-08-01] MEDS: FERROUS SULFATE (EC) 325 MG TAB PO ×2 (08:36→20:58)
[2018-08-01] MEDS: DOCUSATE SODIUM 100 MG CAP PO (18:02)
[2018-08-01] MEDS: BISACODYL (EC) 5 MG TAB PO (18:02)
[2018-08-01] MEDS: INSULIN GLARGINE [LANTus] (100 UNITS/ML) SYG SC (20:57)
[2018-08-01] MEDS: TERAZOSIN 5 MG CAP PO (20:58)
[2018-08-01] MEDS: ATORVASTATIN 80 MG TAB PO (20:58)
[2018-08-01] MEDS: EZETIMIBE 10 MG TAB PO (20:58)
[2018-08-01] MEDS: CEFTRIAXONE 1 GM/50 ML (PMX) 50 ML IVPB (21:03)
[2018-08-02] MEDS: ACCU-CHEK XX (01:03)
[2018-08-02] MEDS: HEPARIN 5,000 UNIT/1 ML VIAL SC ×3 (06:35→21:24)
[2018-08-02 06:40] LABS: WHITE BLOOD COUNT 7.3 10^3/ul (4.8-10.8)
[2018-08-02 06:40] LABS: HEMATOCRIT 29.2 % (42.0-52.0); HEMOGLOBIN 9.3 g/dl (14.0-18.0); MEAN CORPUSCULAR HGB CONC 31.8 g/dl (32.0-37.0); MEAN CORPUSCULAR VOLUME 84.6 fl (82.0-101.0); MEAN PLATELET VOLUME 9.5 fl (7.4-10.4); PLATELET COUNT 210 10^3/UL (140-415); POSITIVE DIFF @See below; RED BLOOD COUNT 3.45 10^6/ul (4.70-6.10); RED CELL DISTRIBUTION WIDTH 14.8 % (11.5-14.5)
[2018-08-02 06:43] LABS: ADD MAN DIFF? YES
[2018-08-02 07:24] LABS: ALANINE AMINOTRANSFERASE 12 IU/L (13-69); ALBUMIN 2.6 g/dl (3.3-4.9); ALBUMIN/GLOBULIN RATIO 0.92; ALKALINE PHOSPHATASE 59 IU/L (42-121); ANION GAP 8 (5-13); ASPARTATE AMINO TRANSFERASE 13 IU/L (15-46); BILIRUBIN,INDIRECT 0.3 mg/dl (0-1.1); BILIRUBIN,TOTAL 0.3 mg/dl (0.2-1.3); BLOOD UREA NITROGEN 10 mg/dl (7-20); CALCIUM 7.7 mg/dl (8.4-10.2); CARBON DIOXIDE 29 mmol/L (21-31); CHLORIDE 99 mmol/L (97-110); CREATININE 0.51 mg/dl (0.61-1.24); GLUCOSE 66 mg/dl (70-220); POTASSIUM 3.6 mmol/L (3.5-5.1); SODIUM 136 mmol/L (135-144); TOTAL PROTEIN 5.4 g/dl (6.1-8.1)
[2018-08-02] MEDS: metFORMIN 500 MG TAB PO ×2 (08:00→17:21)
[2018-08-02] MEDS: INSULIN ASPART [NOVOLOG] 3 ML PEN SC ×4 (08:00→21:00)
[2018-08-02 08:16] LABS: ANISOCYTOSIS 1+ (0-0); BURR CELLS 1+ (0-0); GIANT THROMBO% (M) 2 % (0-0); LYMPHOCYTES #M 1.5 10^3/ul (0.8-2.9); LYMPHOCYTES % (M) 21 % (15-51); MICROCYTOSIS 1+ (0-0); MONOCYTE #M 0.3 10^3/ul (0.3-0.9); MONOCYTES % (M) 5 % (0-11); OVALOCYTES 1+ (0-0); PLATELET ESTIMATE NORMAL; POIKILOCYTOSIS 1+ (0-0); REACTIVE LYMPHOCYTES #M 0.3 10^3/ul (0.0-0.0); REACTIVE LYMPHOCYTES% (M) 5 % (0-0); SEGMENTED NEUTROPHILS (M) % 69 % (39-77); SMUDGE%M 15 % (0-0)
[2018-08-02] MEDS: ZINC SULFATE 220 MG CAP PO (09:32)
[2018-08-02] MEDS: DUTASTERIDE 0.5 MG CAP PO (09:32)
[2018-08-02] MEDS: FERROUS SULFATE (EC) 325 MG TAB PO ×2 (09:33→21:18)
[2018-08-02] MEDS: MULTIVITAMINS THERAPEUTIC TAB PO (09:33)
[2018-08-02] MEDS: BALSAM PERU/CASTOR OIL 60 GM TUBE TOP ×2 (09:33→21:25)
[2018-08-02] MEDS: ASCORBIC ACID 500 MG TAB PO (09:33)
[2018-08-02] MEDS: COLLAGENASE 5 GM (UD JAR) TOP (09:33)
[2018-08-02] MEDS: LEVETIRACETAM 250 MG TAB PO (09:33)
[2018-08-02] MEDS: FLUCONAZOLE 200 MG TAB PO (09:33)
[2018-08-02] MEDS: INSULIN GLARGINE [LANTus] (100 UNITS/ML) SYG SC (20:00)
[2018-08-02] MEDS: ATORVASTATIN 40 MG TAB PO (21:18)
[2018-08-02] MEDS: TERAZOSIN 5 MG CAP PO (21:18)
[2018-08-02] MEDS: LACTOBACILLUS RHAMNOSUS CAP PO (21:22)
[2018-08-02] MEDS: EZETIMIBE 10 MG TAB PO (21:22)
[2018-08-03] MEDS: ACCU-CHEK XX (03:00)
[2018-08-03] MEDS: HEPARIN 5,000 UNIT/1 ML VIAL SC ×3 (05:47→21:33)
[2018-08-03] MEDS: LACTOBACILLUS RHAMNOSUS CAP PO ×2 (08:40→20:14)
[2018-08-03] MEDS: DUTASTERIDE 0.5 MG CAP PO (08:40)
[2018-08-03] MEDS: FERROUS SULFATE (EC) 325 MG TAB PO ×2 (08:41→20:14)
[2018-08-03] MEDS: ZINC SULFATE 220 MG CAP PO (08:41)
[2018-08-03] MEDS: SENNA/DOCUSATE NA (8.6MG/50MG) TAB PO (08:42)
[2018-08-03] MEDS: MULTIVITAMINS THERAPEUTIC TAB PO (08:42)
[2018-08-03] MEDS: LEVETIRACETAM 250 MG TAB PO (08:42)
[2018-08-03] MEDS: INSULIN ASPART [NOVOLOG] 3 ML PEN SC ×4 (08:43→20:13)
[2018-08-03] MEDS: metFORMIN 500 MG TAB PO ×2 (08:43→17:31)
[2018-08-03 08:44] LABS: WHITE BLOOD COUNT 5.8 10^3/ul (4.8-10.8)
[2018-08-03 08:44] LABS: HEMATOCRIT 31.8 % (42.0-52.0); HEMOGLOBIN 10.1 g/dl (14.0-18.0); MEAN CORPUSCULAR HEMOGLOBIN 27.3 pg (29.0-33.0); MEAN CORPUSCULAR HGB CONC 31.8 g/dl (32.0-37.0); MEAN CORPUSCULAR VOLUME 85.9 fl (82.0-101.0); MEAN PLATELET VOLUME 9.7 fl (7.4-10.4); PLATELET COUNT 201 10^3/UL (140-415); POSITIVE DIFF @See below
[2018-08-03] MEDS: COLLAGENASE 5 GM (UD JAR) TOP (08:44)
[2018-08-03] MEDS: FLUCONAZOLE 200 MG TAB PO (08:44)
[2018-08-03] MEDS: ASCORBIC ACID 500 MG TAB PO (08:44)
[2018-08-03] MEDS: BALSAM PERU/CASTOR OIL 60 GM TUBE TOP ×2 (08:45→20:20)
[2018-08-03 08:50] LABS: ADD MAN DIFF? YES
[2018-08-03 08:59] LABS: INR 1.15; PROTIME 14.8 Sec (11.9-14.9); PT RATIO 1.2
[2018-08-03 09:07] LABS: ALANINE AMINOTRANSFERASE 19 IU/L (13-69); ALBUMIN 2.6 g/dl (3.3-4.9); ALBUMIN/GLOBULIN RATIO 0.83; ALKALINE PHOSPHATASE 67 IU/L (42-121); ANION GAP 6 (5-13); ASPARTATE AMINO TRANSFERASE 16 IU/L (15-46); BILIRUBIN,INDIRECT 0.3 mg/dl (0-1.1); BILIRUBIN,TOTAL 0.3 mg/dl (0.2-1.3); BLOOD UREA NITROGEN 8 mg/dl (7-20); CALCIUM 8.1 mg/dl (8.4-10.2); CARBON DIOXIDE 28 mmol/L (21-31); CHLORIDE 102 mmol/L (97-110); CREATININE 0.48 mg/dl (0.61-1.24); GLUCOSE 212 mg/dl (70-220); POTASSIUM 3.9 mmol/L (3.5-5.1); SODIUM 136 mmol/L (135-144); TOTAL PROTEIN 5.7 g/dl (6.1-8.1)
[2018-08-03 09:23] LABS: MAGNESIUM 1.2 mg/dl (1.7-2.5)
[2018-08-03 09:23] LABS: PHOSPHORUS 3.1 mg/dl (2.5-4.9)
[2018-08-03 09:32] LABS: HEMOGLOBIN A1C 10.5 % (0-5.9)
[2018-08-03 10:19] LABS: ANISOCYTOSIS 1+ (0-0); BAND NEUTROPHILS #M 1.5 10^3/ul (0.0-0.6); BAND NEUTROPHILS % (M) 27 % (0-4); BURR CELLS 3+ (0-0); EOSINOPHILS % (M) 1 % (0-7); GIANT THROMBO% (M) 1 % (0-0); LYMPHOCYTES #M 1.2 10^3/ul (0.8-2.9); LYMPHOCYTES % (M) 22 % (15-51); MICROCYTOSIS 1+ (0-0); MONOCYTE #M 0.4 10^3/ul (0.3-0.9); MONOCYTES % (M) 7 % (0-11); PLATELET ESTIMATE NORMAL; POIKILOCYTOSIS 2+ (0-0); POLYCHROMASIA 1+ (0-0); REACTIVE LYMPHOCYTES #M 0.1 10^3/ul (0.0-0.0); REACTIVE LYMPHOCYTES% (M) 2 % (0-0); SEG NEUT #M 2.5 10^3/ul (1.6-7.5); SEGMENTED NEUTROPHILS (M) % 41 % (39-77); SMUDGE%M 10 % (0-0)
[2018-08-03] MEDS: MAGNESIUM SULFATE 3 GM in DEXTROSE 5% 100 ML IVPB (15:58)
[2018-08-03 16:47] LABS: FOLATE 10.4 ng/ml (2.8-20.0)
[2018-08-03] MEDS: INSULIN GLARGINE [LANTus] (100 UNITS/ML) SYG SC (20:12)
[2018-08-03] MEDS: EZETIMIBE 10 MG TAB PO (20:13)
[2018-08-03] MEDS: ATORVASTATIN 40 MG TAB PO (20:14)
[2018-08-03] MEDS: TERAZOSIN 5 MG CAP PO (20:19)
[2018-08-03 22:30] LABS: RAPID PLASMA REAGIN NONREACTIVE (NR)
[2018-08-04] MEDS: ACCU-CHEK XX (01:23)
[2018-08-04] MEDS: HEPARIN 5,000 UNIT/1 ML VIAL SC ×3 (05:52→22:53)
[2018-08-04] MEDS: INSULIN ASPART [NOVOLOG] 3 ML PEN SC ×4 (08:54→22:52)
[2018-08-04] MEDS: ZINC SULFATE 220 MG CAP PO (09:00)
[2018-08-04] MEDS: BALSAM PERU/CASTOR OIL 60 GM TUBE TOP ×2 (09:00→23:23)
[2018-08-04] MEDS: FLUCONAZOLE 200 MG TAB PO (09:00)
[2018-08-04] MEDS: SENNA/DOCUSATE NA (8.6MG/50MG) TAB PO (09:00)
[2018-08-04] MEDS: LEVETIRACETAM 250 MG TAB PO (09:00)
[2018-08-04] MEDS: MULTIVITAMINS THERAPEUTIC TAB PO (09:00)
[2018-08-04] MEDS: COLLAGENASE 5 GM (UD JAR) TOP (09:00)
[2018-08-04] MEDS: FERROUS SULFATE (EC) 325 MG TAB PO ×2 (09:00→22:48)
[2018-08-04] MEDS: LACTOBACILLUS RHAMNOSUS CAP PO ×2 (09:00→22:47)
[2018-08-04] MEDS: DUTASTERIDE 0.5 MG CAP PO (09:00)
[2018-08-04] MEDS: ASCORBIC ACID 500 MG TAB PO (09:00)
[2018-08-04] MEDS: metFORMIN 500 MG TAB PO ×3 (09:36→22:50)
[2018-08-04] MEDS: LINAGLIPTIN 5 MG TABLET PO (17:50)
[2018-08-04] MEDS: TERAZOSIN 5 MG CAP PO (21:00)
[2018-08-04] MEDS: EZETIMIBE 10 MG TAB PO (22:49)
[2018-08-04] MEDS: ATORVASTATIN 40 MG TAB PO (22:50)
[2018-08-04] MEDS: SOD CHLORIDE 0.9% 250 ML IV (23:14)
[2018-08-04] MEDS: INSULIN GLARGINE [LANTus] (100 UNITS/ML) SYG SC (23:14)
[2018-08-05] MEDS: ACCU-CHEK XX ×2 (02:00→02:05)
[2018-08-05] MEDS: HEPARIN 5,000 UNIT/1 ML VIAL SC ×3 (05:15→21:08)
[2018-08-05] MEDS: BALSAM PERU/CASTOR OIL 60 GM TUBE TOP ×2 (09:00→20:22)
[2018-08-05] MEDS: COLLAGENASE 5 GM (UD JAR) TOP (09:00)
[2018-08-05] MEDS: LINAGLIPTIN 5 MG TABLET PO (09:32)
[2018-08-05] MEDS: metFORMIN 500 MG TAB PO ×3 (09:32→20:18)
[2018-08-05] MEDS: LEVETIRACETAM 250 MG TAB PO (09:32)
[2018-08-05] MEDS: DUTASTERIDE 0.5 MG CAP PO (09:32)
[2018-08-05] MEDS: ASCORBIC ACID 500 MG TAB PO (09:33)
[2018-08-05] MEDS: ZINC SULFATE 220 MG CAP PO (09:33)
[2018-08-05] MEDS: FLUCONAZOLE 200 MG TAB PO (09:33)
[2018-08-05] MEDS: LACTOBACILLUS RHAMNOSUS CAP PO ×2 (09:33→20:18)
[2018-08-05] MEDS: FERROUS SULFATE (EC) 325 MG TAB PO ×2 (09:33→20:19)
[2018-08-05] MEDS: SENNA/DOCUSATE NA (8.6MG/50MG) TAB PO (09:33)
[2018-08-05] MEDS: MULTIVITAMINS THERAPEUTIC TAB PO (09:33)
[2018-08-05] MEDS: INSULIN ASPART [NOVOLOG] 3 ML PEN SC ×4 (09:34→20:15)
[2018-08-05] MEDS ORDERED: INSULIN GLARGINE [LANTus] (100 UNITS/ML) SYG SC (20:00)
[2018-08-05] MEDS: INSULIN GLARGINE [LANTus] (100 UNITS/ML) SYG SC (20:17)
[2018-08-05] MEDS: ATORVASTATIN 40 MG TAB PO (20:18)
[2018-08-05] MEDS: TERAZOSIN 5 MG CAP PO (20:19)
[2018-08-05] MEDS: EZETIMIBE 10 MG TAB PO (20:19)
[2018-08-06] MEDS: ACCU-CHEK XX (01:56)
[2018-08-06] MEDS: HEPARIN 5,000 UNIT/1 ML VIAL SC ×3 (05:51→21:54)
[2018-08-06] MEDS: INSULIN ASPART [NOVOLOG] 3 ML PEN SC ×4 (08:00→20:29)
[2018-08-06] MEDS: SENNA/DOCUSATE NA (8.6MG/50MG) TAB PO (08:39)
[2018-08-06] MEDS: LINAGLIPTIN 5 MG TABLET PO (08:39)
[2018-08-06] MEDS: ASCORBIC ACID 500 MG TAB PO (08:39)
[2018-08-06] MEDS: ZINC SULFATE 220 MG CAP PO (08:39)
[2018-08-06] MEDS: DUTASTERIDE 0.5 MG CAP PO (08:39)
[2018-08-06] MEDS: FLUCONAZOLE 200 MG TAB PO (08:39)
[2018-08-06] MEDS: MULTIVITAMINS THERAPEUTIC TAB PO (08:39)
[2018-08-06] MEDS: FERROUS SULFATE (EC) 325 MG TAB PO ×3 (08:39→21:00)
[2018-08-06] MEDS: LACTOBACILLUS RHAMNOSUS CAP PO ×3 (08:40→21:00)
[2018-08-06] MEDS: LEVETIRACETAM 250 MG TAB PO (08:40)
[2018-08-06] MEDS: metFORMIN 500 MG TAB PO ×4 (08:40→21:00)
[2018-08-06] MEDS: BALSAM PERU/CASTOR OIL 60 GM TUBE TOP ×2 (08:41→20:30)
[2018-08-06] MEDS: COLLAGENASE 5 GM (UD JAR) TOP (08:41)
[2018-08-06] MEDS: TERAZOSIN 5 MG CAP PO ×2 (20:27→21:00)
[2018-08-06] MEDS: INSULIN GLARGINE [LANTus] (100 UNITS/ML) SYG SC (20:28)
[2018-08-06] MEDS: ONDANSETRON 4 MG INJ IV (20:40)
[2018-08-07] MEDS: ACCU-CHEK XX (01:55)
[2018-08-07] MEDS: HEPARIN 5,000 UNIT/1 ML VIAL SC ×3 (05:44→21:38)
[2018-08-07] MEDS: INSULIN ASPART [NOVOLOG] 3 ML PEN SC ×4 (08:00→20:31)
[2018-08-07 08:04] LABS: ADD MAN DIFF? NO
[2018-08-07 08:10] LABS: BASOPHILS % 0.2 % (0.0-2.0); EOSINOPHILS % 0.5 % (0.0-7.0); HEMATOCRIT 27.9 % (42.0-52.0); HEMOGLOBIN 8.9 g/dl (14.0-18.0); LYMPHOCYTES # 2.2 10^3/ul (0.8-2.9); LYMPHOCYTES % 35.4 % (15.0-51.0); MEAN CORPUSCULAR HEMOGLOBIN 27.6 pg (29.0-33.0); MEAN CORPUSCULAR HGB CONC 31.9 g/dl (32.0-37.0); MEAN CORPUSCULAR VOLUME 86.4 fl (82.0-101.0); MEAN PLATELET VOLUME 9.8 fl (7.4-10.4); MONOCYTE # 0.6 10^3/ul (0.3-0.9); MONOCYTES % 9.8 % (0.0-11.0); NEUTROPHIL # 3.3 10^3/ul (1.6-7.5); NEUTROPHILS % 53.8 % (39.0-77.0); PLATELET COUNT 203 10^3/UL (140-415); RED BLOOD COUNT 3.23 10^6/ul (4.70-6.10); RED CELL DISTRIBUTION WIDTH 15.1 % (11.5-14.5)
[2018-08-07 08:10] LABS: WHITE BLOOD COUNT 6.1 10^3/ul (4.8-10.8)
[2018-08-07 08:30] LABS: ALANINE AMINOTRANSFERASE 26 IU/L (13-69); ALBUMIN 2.6 g/dl (3.3-4.9); ALBUMIN/GLOBULIN RATIO 0.81; ALKALINE PHOSPHATASE 55 IU/L (42-121); ANION GAP 6 (5-13); ASPARTATE AMINO TRANSFERASE 19 IU/L (15-46); BLOOD UREA NITROGEN 17 mg/dl (7-20); CALCIUM 8.6 mg/dl (8.4-10.2); CARBON DIOXIDE 27 mmol/L (21-31); CHLORIDE 105 mmol/L (97-110); CREATININE 0.57 mg/dl (0.61-1.24); GLUCOSE 115 mg/dl (70-220); POTASSIUM 4.5 mmol/L (3.5-5.1); SODIUM 138 mmol/L (135-144); TOTAL PROTEIN 5.8 g/dl (6.1-8.1)
[2018-08-07 08:31] LABS: INR 1.13; MAGNESIUM 1.3 mg/dl (1.7-2.5); PROTIME 14.6 Sec (11.9-14.9); PT RATIO 1.1
[2018-08-07 08:31] LABS: PHOSPHORUS 2.6 mg/dl (2.5-4.9)
[2018-08-07] MEDS: metFORMIN 500 MG TAB PO ×3 (09:00→20:24)
[2018-08-07] MEDS: ONDANSETRON 4 MG INJ IV (09:10)
[2018-08-07] MEDS: COLLAGENASE 5 GM (UD JAR) TOP (09:11)
[2018-08-07] MEDS: BALSAM PERU/CASTOR OIL 60 GM TUBE TOP ×2 (09:11→20:32)
[2018-08-07] MEDS: DUTASTERIDE 0.5 MG CAP PO (12:36)
[2018-08-07] MEDS: SENNA/DOCUSATE NA (8.6MG/50MG) TAB PO (12:36)
[2018-08-07] MEDS: LINAGLIPTIN 5 MG TABLET PO (12:36)
[2018-08-07] MEDS: ASCORBIC ACID 500 MG TAB PO (12:37)
[2018-08-07] MEDS: FLUCONAZOLE 200 MG TAB PO (12:37)
[2018-08-07] MEDS: LEVETIRACETAM 250 MG TAB PO (12:37)
[2018-08-07] MEDS: FERROUS SULFATE (EC) 325 MG TAB PO (12:37)
[2018-08-07] MEDS: LACTOBACILLUS RHAMNOSUS CAP PO ×2 (12:37→20:24)
[2018-08-07] MEDS: ZINC SULFATE 220 MG CAP PO (12:37)
[2018-08-07] MEDS: MULTIVITAMINS THERAPEUTIC TAB PO (12:37)
[2018-08-07] MEDS: MAGNESIUM SULFATE 3 GM in DEXTROSE 5% 100 ML IVPB (20:23)
[2018-08-07] MEDS: TERAZOSIN 5 MG CAP PO (20:29)
[2018-08-07] MEDS: INSULIN GLARGINE [LANTus] (100 UNITS/ML) SYG SC (20:32)
[2018-08-08] MEDS: ACCU-CHEK XX (02:19)
[2018-08-08] MEDS: HEPARIN 5,000 UNIT/1 ML VIAL SC ×3 (05:49→21:00)
[2018-08-08 06:03] LABS: ADD MAN DIFF? NO
[2018-08-08 06:12] LABS: BASOPHILS % 0.3 % (0.0-2.0); EOSINOPHILS % 0.4 % (0.0-7.0); HEMATOCRIT 27.7 % (42.0-52.0); HEMOGLOBIN 8.9 g/dl (14.0-18.0); LYMPHOCYTES # 2.2 10^3/ul (0.8-2.9); LYMPHOCYTES % 32.6 % (15.0-51.0); MEAN CORPUSCULAR HEMOGLOBIN 27.5 pg (29.0-33.0); MEAN CORPUSCULAR HGB CONC 32.1 g/dl (32.0-37.0); MEAN CORPUSCULAR VOLUME 85.5 fl (82.0-101.0); MEAN PLATELET VOLUME 9.7 fl (7.4-10.4); MONOCYTE # 0.6 10^3/ul (0.3-0.9); MONOCYTES % 8.9 % (0.0-11.0); NEUTROPHIL # 3.9 10^3/ul (1.6-7.5); NEUTROPHILS % 57.7 % (39.0-77.0); PLATELET COUNT 234 10^3/UL (140-415); RED BLOOD COUNT 3.24 10^6/ul (4.70-6.10); RED CELL DISTRIBUTION WIDTH 15.2 % (11.5-14.5)
[2018-08-08 06:12] LABS: WHITE BLOOD COUNT 6.8 10^3/ul (4.8-10.8)
[2018-08-08 06:41] LABS: ALANINE AMINOTRANSFERASE 25 IU/L (13-69); ALBUMIN 2.7 g/dl (3.3-4.9); ALBUMIN/GLOBULIN RATIO 0.93; ALKALINE PHOSPHATASE 52 IU/L (42-121); ANION GAP 6 (5-13); ASPARTATE AMINO TRANSFERASE 20 IU/L (15-46); BILIRUBIN,INDIRECT 0.1 mg/dl (0-1.1); BILIRUBIN,TOTAL 0.1 mg/dl (0.2-1.3); BLOOD UREA NITROGEN 23 mg/dl (7-20); CALCIUM 8.5 mg/dl (8.4-10.2); CARBON DIOXIDE 28 mmol/L (21-31); CHLORIDE 102 mmol/L (97-110); CREATININE 0.58 mg/dl (0.61-1.24); GLUCOSE 170 mg/dl (70-220); POTASSIUM 4.5 mmol/L (3.5-5.1); SODIUM 136 mmol/L (135-144); TOTAL PROTEIN 5.6 g/dl (6.1-8.1)
[2018-08-08 06:42] LABS: PHOSPHORUS 3.4 mg/dl (2.5-4.9)
[2018-08-08 06:42] LABS: MAGNESIUM 1.9 mg/dl (1.7-2.5)
[2018-08-08] MEDS: INSULIN ASPART [NOVOLOG] 3 ML PEN SC ×4 (08:00→20:41)
[2018-08-08] MEDS: COLLAGENASE 5 GM (UD JAR) TOP (09:02)
[2018-08-08] MEDS: MULTIVITAMINS THERAPEUTIC TAB PO (09:03)
[2018-08-08] MEDS: LINAGLIPTIN 5 MG TABLET PO (09:03)
[2018-08-08] MEDS: ZINC SULFATE 220 MG CAP PO (09:03)
[2018-08-08] MEDS: FLUCONAZOLE 200 MG TAB PO (09:03)
[2018-08-08] MEDS: metFORMIN 500 MG TAB PO ×3 (09:03→20:36)
[2018-08-08] MEDS: SENNA/DOCUSATE NA (8.6MG/50MG) TAB PO (09:03)
[2018-08-08] MEDS: LEVETIRACETAM 250 MG TAB PO (09:03)
[2018-08-08] MEDS: DUTASTERIDE 0.5 MG CAP PO (09:03)
[2018-08-08] MEDS: LACTOBACILLUS RHAMNOSUS CAP PO ×2 (09:03→20:36)
[2018-08-08] MEDS: ASCORBIC ACID 500 MG TAB PO (09:03)
[2018-08-08] MEDS: BALSAM PERU/CASTOR OIL 60 GM TUBE TOP ×2 (09:07→20:42)
[2018-08-08] MEDS: TERAZOSIN 5 MG CAP PO (20:39)
[2018-08-08] MEDS: INSULIN GLARGINE [LANTus] (100 UNITS/ML) SYG SC (20:41)
[2018-08-09] MEDS: ACCU-CHEK XX (02:02)
[2018-08-09] MEDS: HEPARIN 5,000 UNIT/1 ML VIAL SC ×3 (05:32→21:47)
[2018-08-09] MEDS: INSULIN ASPART [NOVOLOG] 3 ML PEN SC ×4 (08:00→20:29)
[2018-08-09] MEDS: metFORMIN 500 MG TAB PO ×3 (08:22→20:33)
[2018-08-09] MEDS: ASCORBIC ACID 500 MG TAB PO (08:23)
[2018-08-09] MEDS: SENNA/DOCUSATE NA (8.6MG/50MG) TAB PO (08:23)
[2018-08-09] MEDS: MULTIVITAMINS THERAPEUTIC TAB PO (08:23)
[2018-08-09] MEDS: FLUCONAZOLE 200 MG TAB PO (08:23)
[2018-08-09] MEDS: LACTOBACILLUS RHAMNOSUS CAP PO ×2 (08:23→20:33)
[2018-08-09] MEDS: LINAGLIPTIN 5 MG TABLET PO (08:23)
[2018-08-09] MEDS: LEVETIRACETAM 250 MG TAB PO (08:23)
[2018-08-09] MEDS: ZINC SULFATE 220 MG CAP PO (08:24)
[2018-08-09] MEDS: DUTASTERIDE 0.5 MG CAP PO (08:24)
[2018-08-09] MEDS: BALSAM PERU/CASTOR OIL 60 GM TUBE TOP ×2 (08:25→20:37)
[2018-08-09] MEDS: COLLAGENASE 5 GM (UD JAR) TOP (08:25)
[2018-08-09] MEDS: ONDANSETRON 4 MG INJ IV (09:29)
[2018-08-09] MEDS: INSULIN GLARGINE [LANTus] (100 UNITS/ML) SYG SC (20:30)
[2018-08-09] MEDS: TERAZOSIN 5 MG CAP PO (20:36)
[2018-08-10] MEDS: ACCU-CHEK XX (02:04)
[2018-08-10] MEDS: HEPARIN 5,000 UNIT/1 ML VIAL SC ×3 (05:59→21:11)
[2018-08-10] MEDS: INSULIN ASPART [NOVOLOG] 3 ML PEN SC ×4 (08:00→20:18)
[2018-08-10] MEDS: DUTASTERIDE 0.5 MG CAP PO (09:22)
[2018-08-10] MEDS: SENNA/DOCUSATE NA (8.6MG/50MG) TAB PO (09:22)
[2018-08-10] MEDS: ZINC SULFATE 220 MG CAP PO (09:23)
[2018-08-10] MEDS: LINAGLIPTIN 5 MG TABLET PO (09:23)
[2018-08-10] MEDS: ASCORBIC ACID 500 MG TAB PO (09:23)
[2018-08-10] MEDS: MULTIVITAMINS THERAPEUTIC TAB PO (09:23)
[2018-08-10] MEDS: LEVETIRACETAM 250 MG TAB PO (09:23)
[2018-08-10] MEDS: COLLAGENASE 5 GM (UD JAR) TOP (09:23)
[2018-08-10] MEDS: FLUCONAZOLE 200 MG TAB PO (09:23)
[2018-08-10] MEDS: LACTOBACILLUS RHAMNOSUS CAP PO ×2 (09:23→20:22)
[2018-08-10] MEDS: metFORMIN 500 MG TAB PO ×3 (09:23→20:22)
[2018-08-10] MEDS: BALSAM PERU/CASTOR OIL 60 GM TUBE TOP ×2 (09:24→20:23)
[2018-08-10] MEDS: FERROUS SULFATE (EC) 325 MG TAB PO ×2 (12:33→20:21)
[2018-08-10] MEDS: INSULIN GLARGINE [LANTus] (100 UNITS/ML) SYG SC (20:19)
[2018-08-10] MEDS: TERAZOSIN 5 MG CAP PO (20:21)
[2018-08-10] MEDS: ATORVASTATIN 40 MG TAB PO (20:22)
[2018-08-11] MEDS: ACCU-CHEK XX (02:46)
[2018-08-11] MEDS: HEPARIN 5,000 UNIT/1 ML VIAL SC ×3 (05:56→20:48)
[2018-08-11] MEDS: INSULIN ASPART [NOVOLOG] 3 ML PEN SC ×4 (08:00→20:47)
[2018-08-11] MEDS: GLUCOSE GEL 15 GRAM TUBE PO (08:50)
[2018-08-11] MEDS: MULTIVITAMINS THERAPEUTIC TAB PO (08:52)
[2018-08-11] MEDS: FLUCONAZOLE 200 MG TAB PO (08:52)
[2018-08-11] MEDS: SENNA/DOCUSATE NA (8.6MG/50MG) TAB PO (08:52)
[2018-08-11] MEDS: ZINC SULFATE 220 MG CAP PO (08:52)
[2018-08-11] MEDS: FERROUS SULFATE (EC) 325 MG TAB PO ×2 (08:52→21:00)
[2018-08-11] MEDS: DUTASTERIDE 0.5 MG CAP PO (08:52)
[2018-08-11] MEDS: COLLAGENASE 5 GM (UD JAR) TOP (08:52)
[2018-08-11] MEDS: LACTOBACILLUS RHAMNOSUS CAP PO ×2 (08:52→21:00)
[2018-08-11] MEDS: LEVETIRACETAM 250 MG TAB PO (08:52)
[2018-08-11] MEDS: ASCORBIC ACID 500 MG TAB PO (08:52)
[2018-08-11] MEDS: metFORMIN 500 MG TAB PO ×3 (08:53→21:00)
[2018-08-11] MEDS: LINAGLIPTIN 5 MG TABLET PO (08:53)
[2018-08-11] MEDS: BALSAM PERU/CASTOR OIL 60 GM TUBE TOP ×2 (08:54→21:40)
[2018-08-11] MEDS: TERAZOSIN 5 MG CAP PO (21:00)
[2018-08-11] MEDS: ATORVASTATIN 40 MG TAB PO (21:00)
[2018-08-11] MEDS: ONDANSETRON 4 MG INJ IV (21:03)
[2018-08-12] MEDS: ACCU-CHEK XX (01:10)
[2018-08-12] MEDS: HEPARIN 5,000 UNIT/1 ML VIAL SC ×3 (05:11→21:06)
[2018-08-12] MEDS: ONDANSETRON 4 MG INJ IV ×2 (08:29→20:40)
[2018-08-12] MEDS: COLLAGENASE 5 GM (UD JAR) TOP (08:30)
[2018-08-12] MEDS: LACTOBACILLUS RHAMNOSUS CAP PO ×2 (08:30→20:39)
[2018-08-12] MEDS: metFORMIN 500 MG TAB PO ×3 (08:30→20:39)
[2018-08-12] MEDS: SENNA/DOCUSATE NA (8.6MG/50MG) TAB PO (08:31)
[2018-08-12] MEDS: INSULIN GLARGINE [LANTus] (100 UNITS/ML) SYG SC (08:32)
[2018-08-12] MEDS: INSULIN ASPART [NOVOLOG] 3 ML PEN SC ×4 (08:35→20:41)
[2018-08-12] MEDS: MULTIVITAMINS THERAPEUTIC TAB PO (08:36)
[2018-08-12] MEDS: BALSAM PERU/CASTOR OIL 60 GM TUBE TOP ×2 (08:36→20:41)
[2018-08-12] MEDS: FERROUS SULFATE (EC) 325 MG TAB PO ×2 (08:36→20:40)
[2018-08-12] MEDS: LEVETIRACETAM 250 MG TAB PO (08:36)
[2018-08-12] MEDS: ASCORBIC ACID 500 MG TAB PO (08:36)
[2018-08-12] MEDS: DUTASTERIDE 0.5 MG CAP PO (08:36)
[2018-08-12] MEDS: FLUCONAZOLE 200 MG TAB PO (08:36)
[2018-08-12] MEDS: LINAGLIPTIN 5 MG TABLET PO (08:36)
[2018-08-12] MEDS: ZINC SULFATE 220 MG CAP PO (08:36)
[2018-08-12] MEDS: ATORVASTATIN 40 MG TAB PO (20:40)
[2018-08-12] MEDS: TERAZOSIN 5 MG CAP PO (20:42)
[2018-08-13] MEDS: ACCU-CHEK XX (02:00)
[2018-08-13] MEDS: HEPARIN 5,000 UNIT/1 ML VIAL SC ×3 (05:25→21:20)
[2018-08-13] MEDS: COLLAGENASE 5 GM (UD JAR) TOP (08:14)
[2018-08-13] MEDS: LEVETIRACETAM 250 MG TAB PO (08:14)
[2018-08-13] MEDS: LINAGLIPTIN 5 MG TABLET PO (08:14)
[2018-08-13] MEDS: BALSAM PERU/CASTOR OIL 60 GM TUBE TOP ×2 (08:14→21:00)
[2018-08-13] MEDS: ZINC SULFATE 220 MG CAP PO (08:14)
[2018-08-13] MEDS: ASCORBIC ACID 500 MG TAB PO (08:14)
[2018-08-13] MEDS: SENNA/DOCUSATE NA (8.6MG/50MG) TAB PO (08:14)
[2018-08-13] MEDS: LACTOBACILLUS RHAMNOSUS CAP PO ×2 (08:15→20:27)
[2018-08-13] MEDS: metFORMIN 500 MG TAB PO ×3 (08:15→20:27)
[2018-08-13] MEDS: FLUCONAZOLE 200 MG TAB PO (08:15)
[2018-08-13] MEDS: FERROUS SULFATE (EC) 325 MG TAB PO ×2 (08:15→20:27)
[2018-08-13] MEDS: DUTASTERIDE 0.5 MG CAP PO (08:15)
[2018-08-13] MEDS: MULTIVITAMINS THERAPEUTIC TAB PO (08:15)
[2018-08-13] MEDS: INSULIN GLARGINE [LANTus] (100 UNITS/ML) SYG SC (08:16)
[2018-08-13] MEDS: INSULIN ASPART [NOVOLOG] 3 ML PEN SC ×4 (08:17→20:23)
[2018-08-13] MEDS: ONDANSETRON 4 MG INJ IV (08:25)
[2018-08-13] MEDS: TERAZOSIN 5 MG CAP PO (20:27)
[2018-08-13] MEDS: ATORVASTATIN 40 MG TAB PO (20:28)
[2018-08-14] MEDS: ACCU-CHEK XX (01:39)
[2018-08-14] MEDS: HEPARIN 5,000 UNIT/1 ML VIAL SC ×3 (05:31→20:38)
[2018-08-14] MEDS: INSULIN ASPART [NOVOLOG] 3 ML PEN SC ×4 (08:00→20:44)
[2018-08-14] MEDS: FERROUS SULFATE (EC) 325 MG TAB PO ×2 (08:20→20:37)
[2018-08-14] MEDS: LACTOBACILLUS RHAMNOSUS CAP PO ×2 (08:20→20:35)
[2018-08-14] MEDS: SENNA/DOCUSATE NA (8.6MG/50MG) TAB PO (08:21)
[2018-08-14] MEDS: ASCORBIC ACID 500 MG TAB PO (08:21)
[2018-08-14] MEDS: LINAGLIPTIN 5 MG TABLET PO (08:21)
[2018-08-14] MEDS: metFORMIN 500 MG TAB PO ×3 (08:21→20:36)
[2018-08-14] MEDS: LEVETIRACETAM 250 MG TAB PO (08:21)
[2018-08-14] MEDS: MULTIVITAMINS THERAPEUTIC TAB PO (08:21)
[2018-08-14] MEDS: COLLAGENASE 5 GM (UD JAR) TOP (08:22)
[2018-08-14] MEDS: BALSAM PERU/CASTOR OIL 60 GM TUBE TOP ×3 (08:22→21:10)
[2018-08-14] MEDS: ZINC SULFATE 220 MG CAP PO (08:26)
[2018-08-14] MEDS: INSULIN GLARGINE [LANTus] (100 UNITS/ML) SYG SC (08:28)
[2018-08-14] MEDS: DUTASTERIDE 0.5 MG CAP PO (08:42)
[2018-08-14] MEDS: FLUCONAZOLE 200 MG TAB PO (08:42)
[2018-08-14] MEDS: ATORVASTATIN 40 MG TAB PO (20:35)
[2018-08-14] MEDS: TERAZOSIN 5 MG CAP PO (20:35)
[2018-08-14] MEDS: ONDANSETRON 4 MG INJ IV (21:14)
[2018-08-15] MEDS: ACCU-CHEK XX (02:00)
[2018-08-15] MEDS: HEPARIN 5,000 UNIT/1 ML VIAL SC ×3 (05:14→20:56)
[2018-08-15] MEDS: INSULIN ASPART [NOVOLOG] 3 ML PEN SC ×4 (08:00→20:52)
[2018-08-15] MEDS: COLLAGENASE 5 GM (UD JAR) TOP (08:15)
[2018-08-15] MEDS: INSULIN GLARGINE [LANTus] (100 UNITS/ML) SYG SC (08:15)
[2018-08-15] MEDS: LACTOBACILLUS RHAMNOSUS CAP PO ×2 (08:16→20:50)
[2018-08-15] MEDS: DUTASTERIDE 0.5 MG CAP PO (08:16)
[2018-08-15] MEDS: ZINC SULFATE 220 MG CAP PO (08:16)
[2018-08-15] MEDS: MULTIVITAMINS THERAPEUTIC TAB PO (08:16)
[2018-08-15] MEDS: LEVETIRACETAM 250 MG TAB PO (08:16)
[2018-08-15] MEDS: LINAGLIPTIN 5 MG TABLET PO (08:16)
[2018-08-15] MEDS: metFORMIN 500 MG TAB PO ×3 (08:16→20:51)
[2018-08-15] MEDS: SENNA/DOCUSATE NA (8.6MG/50MG) TAB PO (08:16)
[2018-08-15] MEDS: FERROUS SULFATE (EC) 325 MG TAB PO ×2 (08:16→20:51)
[2018-08-15] MEDS: ASCORBIC ACID 500 MG TAB PO (08:17)
[2018-08-15] MEDS: BALSAM PERU/CASTOR OIL 60 GM TUBE TOP ×2 (08:17→20:52)
[2018-08-15] MEDS: FLUCONAZOLE 200 MG (PMX) 100 ML IVPB (08:24)
[2018-08-15] MEDS: ONDANSETRON 4 MG INJ IV (09:50)
[2018-08-15] MEDS: ATORVASTATIN 40 MG TAB PO (20:51)
[2018-08-15] MEDS: TERAZOSIN 5 MG CAP PO (20:51)
[2018-08-16] MEDS: ACCU-CHEK XX (02:00)
[2018-08-16] MEDS: HEPARIN 5,000 UNIT/1 ML VIAL SC ×3 (06:34→21:26)
[2018-08-16] MEDS: INSULIN GLARGINE [LANTus] (100 UNITS/ML) SYG SC (08:50)
[2018-08-16] MEDS: INSULIN ASPART [NOVOLOG] 3 ML PEN SC ×4 (08:51→21:32)
[2018-08-16] MEDS: FLUCONAZOLE 200 MG (PMX) 100 ML IVPB (08:52)
[2018-08-16] MEDS: ZINC SULFATE 220 MG CAP PO ×2 (08:53→09:00)
[2018-08-16] MEDS: DOCUSATE SODIUM 100 MG CAP PO (08:53)
[2018-08-16] MEDS: LINAGLIPTIN 5 MG TABLET PO ×2 (08:53→09:00)
[2018-08-16] MEDS: ASCORBIC ACID 500 MG TAB PO ×2 (08:53→09:00)
[2018-08-16] MEDS: SENNA/DOCUSATE NA (8.6MG/50MG) TAB PO ×2 (08:53→09:00)
[2018-08-16] MEDS: DUTASTERIDE 0.5 MG CAP PO ×2 (08:53→09:00)
[2018-08-16] MEDS: FERROUS SULFATE (EC) 325 MG TAB PO ×3 (08:53→21:00)
[2018-08-16] MEDS: metFORMIN 500 MG TAB PO ×4 (08:53→21:00)
[2018-08-16] MEDS: COLLAGENASE 5 GM (UD JAR) TOP (08:54)
[2018-08-16] MEDS: LEVETIRACETAM 250 MG TAB PO ×2 (08:54→09:00)
[2018-08-16] MEDS: LACTOBACILLUS RHAMNOSUS CAP PO ×3 (08:54→21:00)
[2018-08-16] MEDS: ONDANSETRON 4 MG INJ IV ×2 (08:54→17:28)
[2018-08-16] MEDS: MULTIVITAMINS THERAPEUTIC TAB PO ×2 (08:54→09:00)
[2018-08-16] MEDS: BALSAM PERU/CASTOR OIL 60 GM TUBE TOP ×2 (08:56→21:00)
[2018-08-16] MEDS: ATORVASTATIN 40 MG TAB PO (21:00)
[2018-08-16] MEDS: TERAZOSIN 5 MG CAP PO (21:00)
[2018-08-17] MEDS: ACCU-CHEK XX (02:00)
[2018-08-17] MEDS: HEPARIN 5,000 UNIT/1 ML VIAL SC ×3 (05:32→21:18)
[2018-08-17] MEDS: INSULIN ASPART [NOVOLOG] 3 ML PEN SC ×4 (07:53→21:00)
[2018-08-17] MEDS: COLLAGENASE 5 GM (UD JAR) TOP (08:36)
[2018-08-17] MEDS: LEVETIRACETAM 250 MG TAB PO (08:39)
[2018-08-17] MEDS: LACTOBACILLUS RHAMNOSUS CAP PO ×2 (08:39→21:00)
[2018-08-17] MEDS: LINAGLIPTIN 5 MG TABLET PO (08:39)
[2018-08-17] MEDS: FERROUS SULFATE (EC) 325 MG TAB PO ×2 (08:39→21:00)
[2018-08-17] MEDS: metFORMIN 500 MG TAB PO ×3 (08:39→21:00)
[2018-08-17] MEDS: SENNA/DOCUSATE NA (8.6MG/50MG) TAB PO (08:39)
[2018-08-17] MEDS: MULTIVITAMINS THERAPEUTIC TAB PO (08:40)
[2018-08-17] MEDS: ZINC SULFATE 220 MG CAP PO (08:40)
[2018-08-17] MEDS: ASCORBIC ACID 500 MG TAB PO (08:40)
[2018-08-17] MEDS: DUTASTERIDE 0.5 MG CAP PO (08:40)
[2018-08-17] MEDS: INSULIN GLARGINE [LANTus] (100 UNITS/ML) SYG SC (08:41)
[2018-08-17] MEDS: FLUCONAZOLE 200 MG (PMX) 100 ML IVPB (08:54)
[2018-08-17] MEDS: BALSAM PERU/CASTOR OIL 60 GM TUBE TOP ×2 (09:24→21:00)
[2018-08-17] MEDS: BISACODYL (EC) 5 MG TAB PO (18:58)
[2018-08-17] MEDS: TERAZOSIN 5 MG CAP PO (21:00)
[2018-08-17] MEDS: ATORVASTATIN 40 MG TAB PO (21:00)
[2018-08-18] MEDS: ACCU-CHEK XX (01:04)
[2018-08-18] MEDS: HEPARIN 5,000 UNIT/1 ML VIAL SC ×3 (05:35→21:18)
[2018-08-18 05:36] LABS: ADD MAN DIFF? NO
[2018-08-18 05:44] LABS: BASOPHILS % 0.6 % (0.0-2.0); EOSINOPHILS # 0.1 10^3/ul (0.0-0.5); EOSINOPHILS % 1.3 % (0.0-7.0); HEMATOCRIT 27.8 % (42.0-52.0); HEMOGLOBIN 8.9 g/dl (14.0-18.0); LYMPHOCYTES # 2.6 10^3/ul (0.8-2.9); LYMPHOCYTES % 49.2 % (15.0-51.0); MEAN CORPUSCULAR HEMOGLOBIN 28.1 pg (29.0-33.0); MEAN CORPUSCULAR VOLUME 87.7 fl (82.0-101.0); MEAN PLATELET VOLUME 9.2 fl (7.4-10.4); MONOCYTE # 0.3 10^3/ul (0.3-0.9); NEUTROPHIL # 2.3 10^3/ul (1.6-7.5); NEUTROPHILS % 42.5 % (39.0-77.0); PLATELET COUNT 231 10^3/UL (140-415); RED BLOOD COUNT 3.17 10^6/ul (4.70-6.10); RED CELL DISTRIBUTION WIDTH 16.8 % (11.5-14.5)
[2018-08-18 05:44] LABS: WHITE BLOOD COUNT 5.3 10^3/ul (4.8-10.8)
[2018-08-18 06:08] LABS: ANION GAP 6 (5-13); BLOOD UREA NITROGEN 12 mg/dl (7-20); CALCIUM 7.6 mg/dl (8.4-10.2); CARBON DIOXIDE 25 mmol/L (21-31); CHLORIDE 109 mmol/L (97-110); CREATININE 0.41 mg/dl (0.61-1.24); GLUCOSE 100 mg/dl (70-220); POTASSIUM 3.1 mmol/L (3.5-5.1); SODIUM 140 mmol/L (135-144)
[2018-08-18] MEDS ORDERED: PROPOFOL 200 MG INJ (07:00)
[2018-08-18] MEDS: INSULIN GLARGINE [LANTus] (100 UNITS/ML) SYG SC (08:00)
[2018-08-18] MEDS: INSULIN ASPART [NOVOLOG] 3 ML PEN SC ×4 (08:00→21:00)
[2018-08-18] MEDS: LEVETIRACETAM 250 MG TAB PO (08:10)
[2018-08-18] MEDS: metFORMIN 500 MG TAB PO ×3 (08:10→21:00)
[2018-08-18] MEDS: LACTOBACILLUS RHAMNOSUS CAP PO ×2 (08:10→21:00)
[2018-08-18] MEDS: DUTASTERIDE 0.5 MG CAP PO (08:10)
[2018-08-18] MEDS: SENNA/DOCUSATE NA (8.6MG/50MG) TAB PO (08:10)
[2018-08-18] MEDS: FERROUS SULFATE (EC) 325 MG TAB PO ×2 (08:10→21:00)
[2018-08-18] MEDS: LINAGLIPTIN 5 MG TABLET PO (08:11)
[2018-08-18] MEDS: ZINC SULFATE 220 MG CAP PO (08:11)
[2018-08-18] MEDS: MULTIVITAMINS THERAPEUTIC TAB PO (08:11)
[2018-08-18] MEDS: ASCORBIC ACID 500 MG TAB PO (08:11)
[2018-08-18] MEDS: FLUCONAZOLE 200 MG (PMX) 100 ML IVPB (08:12)
[2018-08-18] MEDS: BALSAM PERU/CASTOR OIL 60 GM TUBE TOP ×2 (08:16→21:00)
[2018-08-18] MEDS: COLLAGENASE 5 GM (UD JAR) TOP (08:17)
[2018-08-18] MEDS ORDERED: POTASSIUM CHLORIDE 20 MEQ POWDER FOR ORAL SOLN PO (09:00)
[2018-08-18] MEDS: POTASSIUM CHLORIDE 100 ML IVPB ×2 (09:47→17:53)
[2018-08-18] MEDS ORDERED: OXYCODONE/ACETAMINOPHEN (5/325) TAB PO ×2 (16:00)
[2018-08-18] MEDS ORDERED: hydrALAzine 20 MG INJ IV (16:00)
[2018-08-18] MEDS ORDERED: ALBUTEROL 0.083% (NEB) 2.5 MG/3 ML AMP HHN (16:00)
[2018-08-18] MEDS ORDERED: IPRATROPIUM (NEB) 0.5 MG/2.5 ML AMP HHN (16:00)
[2018-08-18] MEDS ORDERED: LABETALOL HCL 20MG INJ IV (16:00)
[2018-08-18] MEDS ORDERED: MIDAZOLAM 1 MG/ML 2 ML INJ IV (16:00)
[2018-08-18] MEDS ORDERED: HYDROmorphONE 1 MG/5 ML IV SYRINGE IV ×3 (16:00)
[2018-08-18] MEDS ORDERED: DIPHENHYDRAMINE 50 MG INJ IV (16:00)
[2018-08-18] MEDS ORDERED: FENTAnyl 50 MCG/ML VIAL IV ×3 (16:00)
[2018-08-18] MEDS ORDERED: MEPERIDINE 25 MG INJ IV (16:00)
[2018-08-18] MEDS ORDERED: EPHEDrine SULFATE 50 MG/5 ML SYG IV (16:00)
[2018-08-18] MEDS ORDERED: ONDANSETRON 4 MG INJ IV (16:00)
[2018-08-18] MEDS ORDERED: TRIMETHOBENZAMIDE 100 MG/ML VIAL IM (16:00)
[2018-08-18] MEDS: SUCRALFATE 1 GM TAB PO ×2 (17:11→21:00)
[2018-08-18] MEDS: METOCLOPRAMIDE 10 MG INJ IV (17:17)
[2018-08-18] MEDS: PANTOPRAZOLE 40 MG INJ IV (17:19)
[2018-08-18] MEDS ORDERED: LIDOCAINE 2% JELLY 5 ML TOP (19:00)
[2018-08-18] MEDS ORDERED: POTASSIUM CHLORIDE 100 ML IVPB (19:00)
[2018-08-18] MEDS: POTASSIUM CHLORIDE 40 MEQ in SOD CHLORIDE 0.9% 1,000 ML IV (20:00)
[2018-08-18] MEDS: TERAZOSIN 5 MG CAP PO (21:00)
[2018-08-18] MEDS: ATORVASTATIN 40 MG TAB PO (21:00)
[2018-08-19] MEDS: ACCU-CHEK XX (01:18)
[2018-08-19] MEDS: METOCLOPRAMIDE 10 MG INJ IV ×4 (05:29→17:10)
[2018-08-19] MEDS: PANTOPRAZOLE 40 MG INJ IV ×2 (05:29→17:07)
[2018-08-19] MEDS: HEPARIN 5,000 UNIT/1 ML VIAL SC ×3 (05:35→21:00)
[2018-08-19 06:07] LABS: ADD MAN DIFF? NO
[2018-08-19 06:16] LABS: BASOPHILS % 0.2 % (0.0-2.0); EOSINOPHILS % 0.2 % (0.0-7.0); HEMATOCRIT 26.4 % (42.0-52.0); HEMOGLOBIN 8.6 g/dl (14.0-18.0); LYMPHOCYTES # 2.3 10^3/ul (0.8-2.9); LYMPHOCYTES % 22.3 % (15.0-51.0); MEAN CORPUSCULAR HEMOGLOBIN 28.4 pg (29.0-33.0); MEAN CORPUSCULAR HGB CONC 32.6 g/dl (32.0-37.0); MEAN CORPUSCULAR VOLUME 87.1 fl (82.0-101.0); MEAN PLATELET VOLUME 9.3 fl (7.4-10.4); MONOCYTE # 0.4 10^3/ul (0.3-0.9); MONOCYTES % 4.1 % (0.0-11.0); NEUTROPHIL # 7.6 10^3/ul (1.6-7.5); NEUTROPHILS % 72.9 % (39.0-77.0); PLATELET COUNT 251 10^3/UL (140-415); RED BLOOD COUNT 3.03 10^6/ul (4.70-6.10)
[2018-08-19 06:16] LABS: WHITE BLOOD COUNT 10.4 10^3/ul (4.8-10.8)
[2018-08-19 06:41] LABS: ANION GAP 6 (5-13); BLOOD UREA NITROGEN 12 mg/dl (7-20); CALCIUM 7.9 mg/dl (8.4-10.2); CARBON DIOXIDE 27 mmol/L (21-31); CHLORIDE 107 mmol/L (97-110); CREATININE 0.47 mg/dl (0.61-1.24); GLUCOSE 86 mg/dl (70-220); MAGNESIUM 1.2 mg/dl (1.7-2.5); SODIUM 140 mmol/L (135-144)
[2018-08-19 06:45] LABS: POTASSIUM 2.8 mmol/L (3.5-5.1)
[2018-08-19] MEDS: INSULIN ASPART [NOVOLOG] 3 ML PEN SC ×4 (08:00→20:56)
[2018-08-19] MEDS: POTASSIUM CHLORIDE 20 MEQ POWDER FOR ORAL SOLN PO (08:50)
[2018-08-19] MEDS: FLUCONAZOLE 200 MG (PMX) 100 ML IVPB (08:53)
[2018-08-19] MEDS: COLLAGENASE 5 GM (UD JAR) TOP (09:09)
[2018-08-19] MEDS: BALSAM PERU/CASTOR OIL 60 GM TUBE TOP ×2 (09:10→20:55)
[2018-08-19] MEDS: MULTIVITAMINS THERAPEUTIC TAB PO (09:11)
[2018-08-19] MEDS: LEVETIRACETAM 250 MG TAB PO (09:11)
[2018-08-19] MEDS: ASCORBIC ACID 500 MG TAB PO (09:11)
[2018-08-19] MEDS: ZINC SULFATE 220 MG CAP PO (09:11)
[2018-08-19] MEDS: SUCRALFATE 1 GM TAB PO (09:11)
[2018-08-19] MEDS: DUTASTERIDE 0.5 MG CAP PO (09:11)
[2018-08-19] MEDS: FERROUS SULFATE (EC) 325 MG TAB PO ×2 (09:11→21:00)
[2018-08-19] MEDS: metFORMIN 500 MG TAB PO ×3 (09:11→21:00)
[2018-08-19] MEDS: LACTOBACILLUS RHAMNOSUS CAP PO ×2 (09:11→21:00)
[2018-08-19] MEDS: SENNA/DOCUSATE NA (8.6MG/50MG) TAB PO (09:11)
[2018-08-19] MEDS: LINAGLIPTIN 5 MG TABLET PO (09:20)
[2018-08-19] MEDS: INSULIN GLARGINE [LANTus] (100 UNITS/ML) SYG SC (09:25)
[2018-08-19] MEDS: POTASSIUM CHLORIDE 40 MEQ in SOD CHLORIDE 0.9% 1,000 ML IV (10:44)
[2018-08-19] MEDS: SUCRALFATE (100 MG/ML) 10ML CUP PO ×3 (12:16→21:00)
[2018-08-19] MEDS: MAGNESIUM SULFATE 4 GM/100 ML 100 ML IVPB (18:14)
[2018-08-19] MEDS: ATORVASTATIN 40 MG TAB PO (21:00)
[2018-08-19] MEDS: TERAZOSIN 5 MG CAP PO (21:00)
[2018-08-19] MEDS: PROPOFOL 40 ML (21:27)
[2018-08-19] MEDS: LIDOCAINE 100 MG SYRINGE (21:27)
[2018-08-19] MEDS: FENTAnyl 50 MCG/ML VIAL (21:28)
[2018-08-20] MEDS: METOCLOPRAMIDE 10 MG INJ IV ×4 (00:20→17:16)
[2018-08-20] MEDS: ACCU-CHEK XX (02:00)
[2018-08-20] MEDS: PANTOPRAZOLE 40 MG INJ IV ×2 (05:56→17:16)
[2018-08-20] MEDS: HEPARIN 5,000 UNIT/1 ML VIAL SC ×3 (05:57→21:20)
[2018-08-20 07:48] LABS: ANION GAP 6 (5-13); BLOOD UREA NITROGEN 10 mg/dl (7-20); CALCIUM 8.3 mg/dl (8.4-10.2); CARBON DIOXIDE 28 mmol/L (21-31); CHLORIDE 105 mmol/L (97-110); CREATININE 0.46 mg/dl (0.61-1.24); GLUCOSE 203 mg/dl (70-220); POTASSIUM 4.1 mmol/L (3.5-5.1); SODIUM 139 mmol/L (135-144)
[2018-08-20] MEDS: INSULIN ASPART [NOVOLOG] 3 ML PEN SC ×4 (08:16→21:00)
[2018-08-20] MEDS: INSULIN GLARGINE [LANTus] (100 UNITS/ML) SYG SC (08:17)
[2018-08-20] MEDS: LINAGLIPTIN 5 MG TABLET PO (09:03)
[2018-08-20] MEDS: FLUCONAZOLE 200 MG (PMX) 100 ML IVPB (09:03)
[2018-08-20] MEDS: LEVETIRACETAM 250 MG TAB PO (09:03)
[2018-08-20] MEDS: ASCORBIC ACID 500 MG TAB PO (09:03)
[2018-08-20] MEDS: ZINC SULFATE 220 MG CAP PO (09:03)
[2018-08-20] MEDS: SENNA/DOCUSATE NA (8.6MG/50MG) TAB PO (09:04)
[2018-08-20] MEDS: metFORMIN 500 MG TAB PO ×3 (09:04→21:00)
[2018-08-20] MEDS: LACTOBACILLUS RHAMNOSUS CAP PO ×2 (09:04→21:00)
[2018-08-20] MEDS: SUCRALFATE (100 MG/ML) 10ML CUP PO ×4 (09:04→21:16)
[2018-08-20] MEDS: MULTIVITAMINS THERAPEUTIC TAB PO (09:04)
[2018-08-20] MEDS: FERROUS SULFATE (EC) 325 MG TAB PO ×2 (09:05→21:00)
[2018-08-20] MEDS: COLLAGENASE 5 GM (UD JAR) TOP (09:06)
[2018-08-20] MEDS: BALSAM PERU/CASTOR OIL 60 GM TUBE TOP ×2 (09:06→21:00)
[2018-08-20] MEDS: DUTASTERIDE 0.5 MG CAP PO (09:09)
[2018-08-20] MEDS: ATORVASTATIN 40 MG TAB PO (21:00)
[2018-08-20] MEDS: TERAZOSIN 5 MG CAP PO (21:00)
[2018-08-21] MEDS: METOCLOPRAMIDE 10 MG INJ IV ×3 (00:17→12:13)
[2018-08-21] MEDS: ACCU-CHEK XX (01:28)
[2018-08-21] MEDS: PANTOPRAZOLE 40 MG INJ IV (05:25)
[2018-08-21] MEDS: HEPARIN 5,000 UNIT/1 ML VIAL SC ×2 (05:26→14:45)
[2018-08-21] MEDS: INSULIN ASPART [NOVOLOG] 3 ML PEN SC ×2 (08:32→12:09)
[2018-08-21] MEDS: INSULIN GLARGINE [LANTus] (100 UNITS/ML) SYG SC (08:33)
[2018-08-21] MEDS: COLLAGENASE 5 GM (UD JAR) TOP (08:37)
[2018-08-21] MEDS: LEVETIRACETAM 250 MG TAB PO (08:37)
[2018-08-21] MEDS: MULTIVITAMINS THERAPEUTIC TAB PO (08:37)
[2018-08-21] MEDS: metFORMIN 500 MG TAB PO ×2 (08:37→13:00)
[2018-08-21] MEDS: SENNA/DOCUSATE NA (8.6MG/50MG) TAB PO (08:37)
[2018-08-21] MEDS: DUTASTERIDE 0.5 MG CAP PO (08:37)
[2018-08-21] MEDS: LINAGLIPTIN 5 MG TABLET PO (08:38)
[2018-08-21] MEDS: LACTOBACILLUS RHAMNOSUS CAP PO (08:38)
[2018-08-21] MEDS: FERROUS SULFATE (EC) 325 MG TAB PO (08:38)
[2018-08-21] MEDS: ASCORBIC ACID 500 MG TAB PO (08:38)
[2018-08-21] MEDS: BALSAM PERU/CASTOR OIL 60 GM TUBE TOP (08:39)
[2018-08-21] MEDS: SUCRALFATE (100 MG/ML) 10ML CUP PO ×2 (09:18→14:43)
[2018-08-21] MEDS: ZINC SULFATE 220 MG CAP PO (09:21)
[2018-08-21] MEDS: traMADol 50 MG TAB PO (11:49)
== END 2018-08-21 17:02 | DRG 368 ==
LOC: E/R 20:33 → 5EC 22:18
PROC: 0D758ZZ Dilation of Esophagus, Via Natural or Artificial Opening Endoscopic (ICD-10-PCS; principal; 2018-08-18 15:30)
PROC: 0DB28ZX Excision of Middle Esophagus, Via Natural or Artificial Opening Endoscopic, Diagnostic (ICD-10-PCS; 2018-08-18 15:30)
PROC: 0DB68ZX Excision of Stomach, Via Natural or Artificial Opening Endoscopic, Diagnostic (ICD-10-PCS; 2018-08-18 15:30)
DX: B37.81 Candidal esophagitis (principal); L89.103 Pressure ulcer of unspecified part of back, stage 3; K44.0 Diaphragmatic hernia with obstruction, without gangrene; N39.0 Urinary tract infection, site not specified; E44.1 Mild protein-calorie malnutrition; R64 Cachexia; K22.10 Ulcer of esophagus without bleeding; K21.0 Gastro-esophageal reflux disease with esophagitis; R13.12 Dysphagia, oropharyngeal phase; R62.7 Adult failure to thrive; E86.0 Dehydration; Z79.4 Long term (current) use of insulin; Z68.21 Body mass index [BMI] 21.0-21.9, adult; E11.65 Type 2 diabetes mellitus with hyperglycemia; L89.210 Pressure ulcer of right hip, unstageable; L89.320 Pressure ulcer of left buttock, unstageable; Z59.8 Other problems related to housing and economic circumstances; F03.90 Unspecified dementia, unspecified severity, without behavioral disturbance, psychotic disturbance, mood disturbance, and anxiety; E03.9 Hypothyroidism, unspecified; E83.42 Hypomagnesemia; G40.909 Epilepsy, unspecified, not intractable, without status epilepticus; E88.81 Metabolic syndrome and other insulin resistance; L89.102 Pressure ulcer of unspecified part of back, stage 2; L89.612 Pressure ulcer of right heel, stage 2; L30.8 Other specified dermatitis; K22.2 Esophageal obstruction; K25.9 Gastric ulcer, unspecified as acute or chronic, without hemorrhage or perforation; K29.40 Chronic atrophic gastritis without bleeding; K44.9 Diaphragmatic hernia without obstruction or gangrene; N40.0 Benign prostatic hyperplasia without lower urinary tract symptoms
CPT/HCPCS: 36415; 71045; 71250; 80048; 80053; 81001; 82607; 82746; 82803; 82962; 83036; 83735; 84100; 84443; 84484; 85025; 85610; 85730; 86592; 87086; 88305; 88312; 88313; 88341; 88342; 92526; 92610; 93005; 93922; 96365; 96372; 97110; 97162; 97530; 99217; 99285-25

== ENCOUNTER 2018-09-03 15:34 | Inpatient (IN) | payer MEDICARE, OTHER ==
[2018-09-03] MEDS: SOD CHLORIDE 0.9% 1,000 ML IV (19:38)
[2018-09-03] MEDS: LIDOCAINE/MYLANTA 40 ML BTL PO (19:38)
[2018-09-03 19:49] LABS: ADD MAN DIFF? NO
[2018-09-03 19:51] LABS: BASOPHIL # 0.1 10^3/ul (0.0-0.1); BASOPHILS % 0.5 % (0.0-2.0); EOSINOPHILS % 0.2 % (0.0-7.0); HEMATOCRIT 32.8 % (42.0-52.0); HEMOGLOBIN 10.1 g/dl (14.0-18.0); LYMPHOCYTES # 2.2 10^3/ul (0.8-2.9); LYMPHOCYTES % 16.3 % (15.0-51.0); MEAN CORPUSCULAR HEMOGLOBIN 27.9 pg (29.0-33.0); MEAN CORPUSCULAR HGB CONC 30.8 g/dl (32.0-37.0); MEAN CORPUSCULAR VOLUME 90.6 fl (82.0-101.0); MEAN PLATELET VOLUME 8.9 fl (7.4-10.4); MONOCYTE # 0.8 10^3/ul (0.3-0.9); MONOCYTES % 6.3 % (0.0-11.0); NEUTROPHIL # 10.1 10^3/ul (1.6-7.5); PLATELET COUNT 413 10^3/UL (140-415); RED BLOOD COUNT 3.62 10^6/ul (4.70-6.10)
[2018-09-03 19:51] LABS: WHITE BLOOD COUNT 13.3 10^3/ul (4.8-10.8)
[2018-09-03 20:14] LABS: ALANINE AMINOTRANSFERASE 23 IU/L (13-69); ALBUMIN 3.9 g/dl (3.3-4.9); ALBUMIN/GLOBULIN RATIO 0.95; ALKALINE PHOSPHATASE 102 IU/L (42-121); ANION GAP 9 (5-13); ASPARTATE AMINO TRANSFERASE 12 IU/L (15-46); BILIRUBIN,INDIRECT 0.5 mg/dl (0-1.1); BILIRUBIN,TOTAL 0.5 mg/dl (0.2-1.3); BLOOD UREA NITROGEN 32 mg/dl (7-20); CALCIUM 9.5 mg/dl (8.4-10.2); CARBON DIOXIDE 31 mmol/L (21-31); CHLORIDE 99 mmol/L (97-110); CREATININE 0.73 mg/dl (0.61-1.24); GLUCOSE 161 mg/dl (70-220); LIPASE 67 U/L (23-300); POTASSIUM 4.8 mmol/L (3.5-5.1); SODIUM 139 mmol/L (135-144)
[2018-09-03] MEDS ORDERED: ONDANSETRON 4 MG INJ IV (21:30)
[2018-09-03] MEDS ORDERED: ACETAMINOPHEN 325 MG TAB PO (21:30)
[2018-09-04] MEDS ORDERED: DEXTROSE 50% 50 ML SYRINGE IV (01:00)
[2018-09-04] MEDS ORDERED: ALBUTEROL/IPRATROPIUM (NEB) 3 ML AMP HHN (01:00)
[2018-09-04] MEDS ORDERED: NACL 0.9% 3 ML SYG IV (01:00)
[2018-09-04] MEDS ORDERED: GLUCAGON 1 MG INJ IM (01:00)
[2018-09-04] MEDS ORDERED: GLUCOSE GEL 15 GRAM TUBE PO ×2 (01:00)
[2018-09-04] MEDS ORDERED: GLUCOSE GEL 15 GRAM TUBE BUCCAL (01:00)
[2018-09-04] MEDS: DEXTROSE 5%-0.45% NACL 1,000 ML IV ×2 (01:45→12:39)
[2018-09-04] MEDS: ACCU-CHEK XX ×2 (01:48→15:38)
[2018-09-04] MEDS: LEVOTHYROXINE 50 MCG TAB PO (06:14)
[2018-09-04 08:39] LABS: ADD MAN DIFF? NO
[2018-09-04] MEDS: INSULIN ASPART [NOVOLOG] 3 ML PEN SC ×4 (08:44→20:46)
[2018-09-04] MEDS: DUTASTERIDE 0.5 MG CAP PO (08:44)
[2018-09-04] MEDS: metFORMIN 500 MG TAB PO (08:44)
[2018-09-04] MEDS: FLUCONAZOLE 200 MG TAB PO (08:44)
[2018-09-04] MEDS: LEVETIRACETAM 250 MG TAB PO (08:44)
[2018-09-04] MEDS: LINAGLIPTIN 5 MG TABLET PO (08:45)
[2018-09-04] MEDS: HEPARIN 5,000 UNIT/1 ML VIAL SC ×2 (08:46→20:33)
[2018-09-04 08:49] LABS: BASOPHILS % 0.5 % (0.0-2.0); EOSINOPHILS # 0.1 10^3/ul (0.0-0.5); HEMATOCRIT 30.3 % (42.0-52.0); HEMOGLOBIN 9.6 g/dl (14.0-18.0); LYMPHOCYTES # 2.3 10^3/ul (0.8-2.9); MEAN CORPUSCULAR HEMOGLOBIN 28.2 pg (29.0-33.0); MEAN CORPUSCULAR HGB CONC 31.7 g/dl (32.0-37.0); MEAN CORPUSCULAR VOLUME 88.9 fl (82.0-101.0); MEAN PLATELET VOLUME 9.1 fl (7.4-10.4); MONOCYTE # 0.6 10^3/ul (0.3-0.9); MONOCYTES % 8.9 % (0.0-11.0); NEUTROPHIL # 3.3 10^3/ul (1.6-7.5); NEUTROPHILS % 52.1 % (39.0-77.0); PLATELET COUNT 342 10^3/UL (140-415); RED BLOOD COUNT 3.41 10^6/ul (4.70-6.10)
[2018-09-04 08:49] LABS: WHITE BLOOD COUNT 6.3 10^3/ul (4.8-10.8)
[2018-09-04] MEDS: ONDANSETRON 4 MG INJ IV ×2 (08:58→20:30)
[2018-09-04] MEDS ORDERED: NON-FORMULARY/PATIENT OWN MED (Sitagliptin Phos/Metformin HCl (Janumet 50-1,000 mg Tablet) PO (09:00)
[2018-09-04 09:03] LABS: ALANINE AMINOTRANSFERASE 11 IU/L (13-69); ALBUMIN 3.3 g/dl (3.3-4.9); ALKALINE PHOSPHATASE 77 IU/L (42-121); ANION GAP 7 (5-13); ASPARTATE AMINO TRANSFERASE 12 IU/L (15-46); BILIRUBIN,INDIRECT 0.5 mg/dl (0-1.1); BILIRUBIN,TOTAL 0.5 mg/dl (0.2-1.3); BLOOD UREA NITROGEN 27 mg/dl (7-20); CALCIUM 8.8 mg/dl (8.4-10.2); CARBON DIOXIDE 27 mmol/L (21-31); CHLORIDE 100 mmol/L (97-110); CREATININE 0.59 mg/dl (0.61-1.24); GLUCOSE 329 mg/dl (70-220); MAGNESIUM 1.7 mg/dl (1.7-2.5); PHOSPHORUS 3.5 mg/dl (2.5-4.9); POTASSIUM 4.4 mmol/L (3.5-5.1); SODIUM 134 mmol/L (135-144); TOTAL PROTEIN 6.6 g/dl (6.1-8.1)
[2018-09-04] MEDS: DAKINS 0.0125%(1/40) 473 ML SOLUTION TP (12:39)
[2018-09-04] MEDS: SOD CHLORIDE 0.9% 1,000 ML IV (13:16)
[2018-09-04] MEDS: INSULIN LISPRO 100 UNIT/ML VIAL SC (14:00)
[2018-09-04] MEDS: PANTOPRAZOLE 40 MG INJ IV (17:11)
[2018-09-04] MEDS: SUCRALFATE (100 MG/ML) 10ML CUP PO ×2 (17:11→20:40)
[2018-09-04] MEDS: INSULIN GLARGINE [LANTus] (100 UNITS/ML) SYG SC (20:33)
[2018-09-04] MEDS: TERAZOSIN 5 MG CAP PO (20:40)
[2018-09-04] MEDS ORDERED: INSULIN GLARGINE [LANtus] 3 ML PEN SC (21:00)
[2018-09-04] MEDS ORDERED: PENDING SANTYL ORDER FOR WOUND CARE XX (23:30)
[2018-09-05] MEDS: INSULIN ASPART [NOVOLOG] 3 ML PEN SC ×6 (01:00→21:00)
[2018-09-05] MEDS: COLLAGENASE 5 GM (UD JAR) TOP ×2 (01:21→08:58)
[2018-09-05] MEDS: ACCU-CHEK XX (01:33)
[2018-09-05] MEDS: SOD CHLORIDE 0.9% 1,000 ML IV (06:02)
[2018-09-05] MEDS: PANTOPRAZOLE 40 MG INJ IV ×2 (06:02→17:12)
[2018-09-05] MEDS: LEVOTHYROXINE 50 MCG TAB PO (06:06)
[2018-09-05] MEDS: DEXTROSE 50% 50 ML SYRINGE IV ×2 (06:06→12:37)
[2018-09-05] MEDS: metFORMIN 500 MG TAB PO (08:00)
[2018-09-05 08:36] LABS: HEMATOCRIT 31.5 % (42.0-52.0); HEMOGLOBIN 9.9 g/dl (14.0-18.0); MEAN CORPUSCULAR HEMOGLOBIN 28.3 pg (29.0-33.0); MEAN CORPUSCULAR HGB CONC 31.4 g/dl (32.0-37.0); MEAN PLATELET VOLUME 8.8 fl (7.4-10.4); PLATELET COUNT 342 10^3/UL (140-415); POSITIVE DIFF @See below
[2018-09-05 08:36] LABS: WHITE BLOOD COUNT 11.1 10^3/ul (4.8-10.8)
[2018-09-05 08:41] LABS: ADD MAN DIFF? YES
[2018-09-05] MEDS: SUCRALFATE (100 MG/ML) 10ML CUP PO ×4 (08:58→21:00)
[2018-09-05] MEDS: HEPARIN 5,000 UNIT/1 ML VIAL SC ×2 (08:59→21:18)
[2018-09-05 09:00] LABS: ANION GAP 7 (5-13); BLOOD UREA NITROGEN 19 mg/dl (7-20); CALCIUM 8.8 mg/dl (8.4-10.2); CARBON DIOXIDE 30 mmol/L (21-31); CHLORIDE 102 mmol/L (97-110); CREATININE 0.56 mg/dl (0.61-1.24); GLUCOSE 91 mg/dl (70-220); MAGNESIUM 1.5 mg/dl (1.7-2.5); PHOSPHORUS 3.3 mg/dl (2.5-4.9); POTASSIUM 4.4 mmol/L (3.5-5.1); SODIUM 139 mmol/L (135-144)
[2018-09-05] MEDS: LEVETIRACETAM 250 MG TAB PO (09:00)
[2018-09-05] MEDS: DUTASTERIDE 0.5 MG CAP PO (09:00)
[2018-09-05] MEDS: FLUCONAZOLE 200 MG TAB PO (09:00)
[2018-09-05] MEDS: LINAGLIPTIN 5 MG TABLET PO (09:00)
[2018-09-05] MEDS: DAKINS 0.0125%(1/40) 473 ML SOLUTION TP (09:08)
[2018-09-05 09:40] LABS: ANISOCYTOSIS 1+ (0-0); BAND NEUTROPHILS #M 2.4 10^3/ul (0.0-0.6); BAND NEUTROPHILS % (M) 22 % (0-4); EOSINOPHILS % (M) 1 % (0-7); LYMPHOCYTES #M 2.5 10^3/ul (0.8-2.9); LYMPHOCYTES % (M) 23 % (15-51); MICROCYTOSIS 1+ (0-0); MONOCYTE #M 0.4 10^3/ul (0.3-0.9); MONOCYTES % (M) 4 % (0-11); PLATELET ESTIMATE NORMAL; POIKILOCYTOSIS 1+ (0-0); POLYCHROMASIA 1+ (0-0); REACTIVE LYMPHOCYTES #M 0.2 10^3/ul (0.0-0.0); REACTIVE LYMPHOCYTES% (M) 2 % (0-0); SEG NEUT #M 5.6 10^3/ul (1.6-7.5); SEGMENTED NEUTROPHILS (M) % 48 % (39-77); SMUDGE%M 4 % (0-0)
[2018-09-05] MEDS: MAGNESIUM SULFATE 2 GM/50 ML 50 ML IVPB (11:23)
[2018-09-05] MEDS: DEXTROSE 5%-0.45% NACL 1,000 ML IV (11:23)
[2018-09-05] MEDS: METOCLOPRAMIDE 10 MG INJ IV (17:11)
[2018-09-05] MEDS: TERAZOSIN 5 MG CAP PO (21:00)
[2018-09-05] MEDS: INSULIN GLARGINE [LANTus] (100 UNITS/ML) SYG SC (21:00)
[2018-09-06] MEDS: METOCLOPRAMIDE 10 MG INJ IV ×4 (00:56→17:33)
[2018-09-06] MEDS: INSULIN ASPART [NOVOLOG] 3 ML PEN SC ×6 (01:00→21:07)
[2018-09-06] MEDS: ACCU-CHEK XX (01:29)
[2018-09-06] MEDS: PANTOPRAZOLE 40 MG INJ IV ×2 (05:35→17:33)
[2018-09-06] MEDS: DEXTROSE 5%-0.45% NACL 1,000 ML IV ×2 (05:36→21:03)
[2018-09-06] MEDS: LEVOTHYROXINE 50 MCG TAB PO (05:38)
[2018-09-06] MEDS: metFORMIN 500 MG TAB PO (08:00)
[2018-09-06] MEDS: LEVETIRACETAM 250 MG TAB PO (08:58)
[2018-09-06] MEDS: LINAGLIPTIN 5 MG TABLET PO (08:58)
[2018-09-06] MEDS: SUCRALFATE (100 MG/ML) 10ML CUP PO ×4 (08:58→21:00)
[2018-09-06] MEDS: FLUCONAZOLE 200 MG TAB PO (08:58)
[2018-09-06] MEDS: DUTASTERIDE 0.5 MG CAP PO (08:58)
[2018-09-06] MEDS: COLLAGENASE 5 GM (UD JAR) TOP (09:01)
[2018-09-06] MEDS: DAKINS 0.0125%(1/40) 473 ML SOLUTION TP (09:02)
[2018-09-06] MEDS: HEPARIN 5,000 UNIT/1 ML VIAL SC ×2 (09:06→21:07)
[2018-09-06] MEDS: TERAZOSIN 5 MG CAP PO (21:00)
[2018-09-06] MEDS: INSULIN GLARGINE [LANTus] (100 UNITS/ML) SYG SC (21:08)
[2018-09-07] MEDS: INSULIN ASPART [NOVOLOG] 3 ML PEN SC ×5 (01:00→17:00)
[2018-09-07] MEDS: METOCLOPRAMIDE 10 MG INJ IV ×4 (01:02→20:23)
[2018-09-07] MEDS: ACCU-CHEK XX (02:00)
[2018-09-07] MEDS: DEXTROSE 50% 50 ML SYRINGE IV (05:43)
[2018-09-07] MEDS: PANTOPRAZOLE 40 MG INJ IV ×2 (05:44→20:22)
[2018-09-07] MEDS: LEVOTHYROXINE 50 MCG TAB PO (05:49)
[2018-09-07] MEDS: metFORMIN 500 MG TAB PO (08:00)
[2018-09-07 08:37] LABS: ADD MAN DIFF? NO
[2018-09-07 08:42] LABS: BASOPHILS % 0.2 % (0.0-2.0); EOSINOPHILS # 0.1 10^3/ul (0.0-0.5); EOSINOPHILS % 0.8 % (0.0-7.0); HEMATOCRIT 30.7 % (42.0-52.0); HEMOGLOBIN 9.5 g/dl (14.0-18.0); LYMPHOCYTES # 1.7 10^3/ul (0.8-2.9); LYMPHOCYTES % 27.4 % (15.0-51.0); MEAN CORPUSCULAR HEMOGLOBIN 27.8 pg (29.0-33.0); MEAN CORPUSCULAR HGB CONC 30.9 g/dl (32.0-37.0); MEAN CORPUSCULAR VOLUME 89.8 fl (82.0-101.0); MEAN PLATELET VOLUME 9.4 fl (7.4-10.4); MONOCYTE # 0.6 10^3/ul (0.3-0.9); MONOCYTES % 9.3 % (0.0-11.0); NEUTROPHIL # 3.7 10^3/ul (1.6-7.5); PLATELET COUNT 301 10^3/UL (140-415); RED BLOOD COUNT 3.42 10^6/ul (4.70-6.10); RED CELL DISTRIBUTION WIDTH 14.3 % (11.5-14.5)
[2018-09-07] MEDS: COLLAGENASE 5 GM (UD JAR) TOP (08:52)
[2018-09-07] MEDS: DAKINS 0.0125%(1/40) 473 ML SOLUTION TP (08:52)
[2018-09-07] MEDS: LINAGLIPTIN 5 MG TABLET PO (08:53)
[2018-09-07] MEDS: DUTASTERIDE 0.5 MG CAP PO (08:54)
[2018-09-07] MEDS: FLUCONAZOLE 200 MG TAB PO (08:54)
[2018-09-07] MEDS: SUCRALFATE (100 MG/ML) 10ML CUP PO ×4 (08:54→20:23)
[2018-09-07] MEDS: LEVETIRACETAM 250 MG TAB PO (08:54)
[2018-09-07] MEDS: HEPARIN 5,000 UNIT/1 ML VIAL SC ×2 (08:57→20:22)
[2018-09-07 09:08] LABS: ALANINE AMINOTRANSFERASE 12 IU/L (13-69); ALBUMIN 3.1 g/dl (3.3-4.9); ALBUMIN/GLOBULIN RATIO 0.93; ALKALINE PHOSPHATASE 61 IU/L (42-121); ANION GAP 5 (5-13); ASPARTATE AMINO TRANSFERASE 14 IU/L (15-46); BILIRUBIN,INDIRECT 0.5 mg/dl (0-1.1); BILIRUBIN,TOTAL 0.5 mg/dl (0.2-1.3); BLOOD UREA NITROGEN 12 mg/dl (7-20); CALCIUM 8.4 mg/dl (8.4-10.2); CARBON DIOXIDE 29 mmol/L (21-31); CHLORIDE 103 mmol/L (97-110); CREATININE 0.51 mg/dl (0.61-1.24); GLUCOSE 90 mg/dl (70-220); MAGNESIUM 1.8 mg/dl (1.7-2.5); PHOSPHORUS 3.1 mg/dl (2.5-4.9); POTASSIUM 3.5 mmol/L (3.5-5.1); SODIUM 137 mmol/L (135-144); TOTAL PROTEIN 6.4 g/dl (6.1-8.1)
[2018-09-07] MEDS: DEXTROSE 5%-0.45% NACL 1,000 ML IV (12:53)
[2018-09-07] MEDS: PROPOFOL 20 ML (18:24)
[2018-09-07] MEDS: INSULIN GLARGINE [LANTus] (100 UNITS/ML) SYG SC (20:21)
[2018-09-07] MEDS: TERAZOSIN 5 MG CAP PO (20:23)
[2018-09-07] MEDS: Insulin NOVOLOG SS MILD Algorithm (SS with meals and bedtime) SC (20:59)
[2018-09-08] MEDS: DEXTROSE 5%-0.45% NACL 1,000 ML IV ×3 (00:56→14:48)
[2018-09-08] MEDS: METOCLOPRAMIDE 10 MG INJ IV ×5 (01:01→23:56)
[2018-09-08] MEDS: ACCU-CHEK XX (02:00)
[2018-09-08] MEDS: LEVOTHYROXINE 50 MCG TAB PO (06:01)
[2018-09-08] MEDS: PANTOPRAZOLE 40 MG INJ IV ×2 (06:01→18:10)
[2018-09-08 06:28] LABS: ADD MAN DIFF? NO
[2018-09-08 06:35] LABS: WHITE BLOOD COUNT 6.3 10^3/ul (4.8-10.8)
[2018-09-08 06:35] LABS: BASOPHILS % 0.2 % (0.0-2.0); EOSINOPHILS % 0.2 % (0.0-7.0); HEMATOCRIT 24.6 % (42.0-52.0); HEMOGLOBIN 7.9 g/dl (14.0-18.0); LYMPHOCYTES # 1.3 10^3/ul (0.8-2.9); LYMPHOCYTES % 21.3 % (15.0-51.0); MEAN CORPUSCULAR HEMOGLOBIN 28.1 pg (29.0-33.0); MEAN CORPUSCULAR HGB CONC 32.1 g/dl (32.0-37.0); MEAN CORPUSCULAR VOLUME 87.5 fl (82.0-101.0); MEAN PLATELET VOLUME 8.9 fl (7.4-10.4); MONOCYTE # 0.6 10^3/ul (0.3-0.9); MONOCYTES % 9.7 % (0.0-11.0); NEUTROPHIL # 4.3 10^3/ul (1.6-7.5); NEUTROPHILS % 68.1 % (39.0-77.0); PLATELET COUNT 238 10^3/UL (140-415); RED BLOOD COUNT 2.81 10^6/ul (4.70-6.10); RED CELL DISTRIBUTION WIDTH 14.3 % (11.5-14.5)
[2018-09-08 06:55] LABS: INR 1.18; PROTIME 15.1 Sec (11.9-14.9); PT RATIO 1.2
[2018-09-08 06:56] LABS: PARTIAL THROMBOPLASTIN TIME 42.2 Sec (23.0-35.0)
[2018-09-08] MEDS: Insulin NOVOLOG SS MILD Algorithm (SS with meals and bedtime) SC ×4 (07:00→21:00)
[2018-09-08 07:10] LABS: ALANINE AMINOTRANSFERASE 13 IU/L (13-69); ALBUMIN 2.6 g/dl (3.3-4.9); ALBUMIN/GLOBULIN RATIO 0.89; ALKALINE PHOSPHATASE 57 IU/L (42-121); ANION GAP 5 (5-13); ASPARTATE AMINO TRANSFERASE 10 IU/L (15-46); BILIRUBIN,INDIRECT 0.4 mg/dl (0-1.1); BILIRUBIN,TOTAL 0.4 mg/dl (0.2-1.3); BLOOD UREA NITROGEN 10 mg/dl (7-20); CARBON DIOXIDE 27 mmol/L (21-31); CHLORIDE 104 mmol/L (97-110); CREATININE 0.57 mg/dl (0.61-1.24); SODIUM 136 mmol/L (135-144); TOTAL PROTEIN 5.5 g/dl (6.1-8.1)
[2018-09-08 07:32] LABS: GLUCOSE 40 mg/dl (70-220); POTASSIUM 2.7 mmol/L (3.5-5.1)
[2018-09-08] MEDS: DEXTROSE 50% 50 ML SYRINGE IV (07:39)
[2018-09-08] MEDS: metFORMIN 500 MG TAB PO (07:44)
[2018-09-08] MEDS: LINAGLIPTIN 5 MG TABLET PO (07:45)
[2018-09-08] MEDS: LEVETIRACETAM 250 MG TAB PO ×2 (09:00→09:19)
[2018-09-08] MEDS: DUTASTERIDE 0.5 MG CAP PO ×2 (09:00→09:19)
[2018-09-08] MEDS: FLUCONAZOLE 200 MG TAB PO ×2 (09:00→09:18)
[2018-09-08] MEDS: HEPARIN 5,000 UNIT/1 ML VIAL SC ×2 (09:16→20:54)
[2018-09-08] MEDS: SUCRALFATE (100 MG/ML) 10ML CUP PO ×4 (09:19→20:53)
[2018-09-08] MEDS: DAKINS 0.0125%(1/40) 473 ML SOLUTION TP (09:20)
[2018-09-08] MEDS: COLLAGENASE 5 GM (UD JAR) TOP (09:20)
[2018-09-08] MEDS: POTASSIUM CHLORIDE 20 MEQ POWDER FOR ORAL SOLN PO (14:49)
[2018-09-08 15:02] LABS: HEMOGLOBIN A1C 8.2 % (0-5.9)
[2018-09-08] MEDS: LIDOCAINE 1% (MPF) 5 ML VIAL (17:14)
[2018-09-08] MEDS: POTASSIUM CHLORIDE 100 ML IVPB ×2 (18:10→20:53)
[2018-09-08] MEDS: TERAZOSIN 5 MG CAP PO (20:53)
[2018-09-08] MEDS ORDERED: INSULIN ASPART [NOVOLOG] 3 ML PEN SC ×2 (21:00)
[2018-09-09] MEDS: ACCU-CHEK XX ×2 (02:00→04:47)
[2018-09-09] MEDS: INSULIN ASPART [NOVOLOG] 3 ML PEN SC (02:15)
[2018-09-09] MEDS: ACETAMINOPHEN 325 MG TAB PO (02:16)
[2018-09-09] MEDS: DEXTROSE 5%-0.45% NACL 1,000 ML IV (04:20)
[2018-09-09] MEDS: LEVOTHYROXINE 50 MCG TAB PO (06:21)
[2018-09-09] MEDS: METOCLOPRAMIDE 10 MG INJ IV ×3 (06:21→17:10)
[2018-09-09] MEDS: PANTOPRAZOLE 40 MG INJ IV ×2 (06:21→17:10)
[2018-09-09] MEDS: Insulin NOVOLOG SS MILD Algorithm (SS with meals and bedtime) SC ×4 (08:01→21:41)
[2018-09-09] MEDS: COLLAGENASE 5 GM (UD JAR) TOP (08:03)
[2018-09-09] MEDS: DAKINS 0.0125%(1/40) 473 ML SOLUTION TP (08:03)
[2018-09-09] MEDS: DUTASTERIDE 0.5 MG CAP PO (08:05)
[2018-09-09] MEDS: SUCRALFATE (100 MG/ML) 10ML CUP PO ×4 (08:05→21:39)
[2018-09-09] MEDS: LEVETIRACETAM 250 MG TAB PO (08:05)
[2018-09-09] MEDS: FLUCONAZOLE 200 MG TAB PO (08:05)
[2018-09-09] MEDS: HEPARIN 5,000 UNIT/1 ML VIAL SC ×2 (08:08→21:40)
[2018-09-09 08:15] LABS: WHITE BLOOD COUNT 4.8 10^3/ul (4.8-10.8)
[2018-09-09 08:15] LABS: ADD MAN DIFF? NO; BASOPHILS % 0.2 % (0.0-2.0); EOSINOPHILS % 0.4 % (0.0-7.0); HEMATOCRIT 26.6 % (42.0-52.0); HEMOGLOBIN 8.4 g/dl (14.0-18.0); LYMPHOCYTES # 1.6 10^3/ul (0.8-2.9); LYMPHOCYTES % 32.8 % (15.0-51.0); MEAN CORPUSCULAR HEMOGLOBIN 27.6 pg (29.0-33.0); MEAN CORPUSCULAR HGB CONC 31.6 g/dl (32.0-37.0); MEAN CORPUSCULAR VOLUME 87.5 fl (82.0-101.0); MEAN PLATELET VOLUME 9.4 fl (7.4-10.4); MONOCYTE # 0.6 10^3/ul (0.3-0.9); MONOCYTES % 13.4 % (0.0-11.0); NEUTROPHIL # 2.5 10^3/ul (1.6-7.5); NEUTROPHILS % 52.8 % (39.0-77.0); PLATELET COUNT 248 10^3/UL (140-415); RED BLOOD COUNT 3.04 10^6/ul (4.70-6.10); RED CELL DISTRIBUTION WIDTH 14.3 % (11.5-14.5)
[2018-09-09 08:57] LABS: ANION GAP 5 (5-13); BLOOD UREA NITROGEN 11 mg/dl (7-20); CALCIUM 8.2 mg/dl (8.4-10.2); CARBON DIOXIDE 26 mmol/L (21-31); CHLORIDE 104 mmol/L (97-110); GLUCOSE 255 mg/dl (70-220); MAGNESIUM 1.5 mg/dl (1.7-2.5); PHOSPHORUS 2.6 mg/dl (2.5-4.9); POTASSIUM 4.4 mmol/L (3.5-5.1); SODIUM 135 mmol/L (135-144)
[2018-09-09] MEDS: MAGNESIUM SULFATE 1 GM/D5W 100 ML IVPB (14:26)
[2018-09-09] MEDS: INSULIN GLARGINE [LANTus] (100 UNITS/ML) SYG SC (14:47)
[2018-09-09 16:21] LABS: INR 1.07; PT RATIO 1.1
[2018-09-09] MEDS: TERAZOSIN 5 MG CAP PO (21:39)
[2018-09-10] MEDS: ACCU-CHEK XX (02:11)
[2018-09-10] MEDS: METOCLOPRAMIDE 10 MG INJ IV ×5 (02:12→17:00)
[2018-09-10] MEDS: PANTOPRAZOLE 40 MG INJ IV ×2 (06:20→16:58)
[2018-09-10] MEDS: LEVOTHYROXINE 50 MCG TAB PO (06:20)
[2018-09-10] MEDS ORDERED: INSULIN ASPART [NOVOLOG] 3 ML PEN SC ×2 (06:30→07:00)
[2018-09-10] MEDS ORDERED: EPHEDrine 25 MG/5 ML SYG (07:00)
[2018-09-10 08:13] LABS: ANION GAP 6 (5-13); BLOOD UREA NITROGEN 11 mg/dl (7-20); CALCIUM 8.4 mg/dl (8.4-10.2); CARBON DIOXIDE 27 mmol/L (21-31); CHLORIDE 104 mmol/L (97-110); CREATININE 0.46 mg/dl (0.61-1.24); GLUCOSE 154 mg/dl (70-220); POTASSIUM 3.8 mmol/L (3.5-5.1); SODIUM 137 mmol/L (135-144)
[2018-09-10] MEDS: FLUCONAZOLE 200 MG TAB PO (08:27)
[2018-09-10] MEDS: SUCRALFATE (100 MG/ML) 10ML CUP PO ×4 (08:27→20:33)
[2018-09-10] MEDS: LEVETIRACETAM 250 MG TAB PO (08:27)
[2018-09-10] MEDS: INSULIN GLARGINE [LANTus] (100 UNITS/ML) SYG SC (08:28)
[2018-09-10] MEDS: DUTASTERIDE 0.5 MG CAP PO (08:28)
[2018-09-10] MEDS: Insulin NOVOLOG SS MILD Algorithm (NPO/TPN/ENTERAL FEEDS) SC ×4 (08:29→20:33)
[2018-09-10] MEDS: HEPARIN 5,000 UNIT/1 ML VIAL SC ×2 (08:30→20:37)
[2018-09-10] MEDS: COLLAGENASE 5 GM (UD JAR) TOP (08:32)
[2018-09-10] MEDS: DAKINS 0.0125%(1/40) 473 ML SOLUTION TP (08:32)
[2018-09-10] MEDS ORDERED: ONDANSETRON 4 MG INJ IV (18:00)
[2018-09-10] MEDS ORDERED: HYDROmorphONE 1 MG/5 ML IV SYRINGE IV ×2 (20:00)
[2018-09-10] MEDS: TERAZOSIN 5 MG CAP PO (20:33)
[2018-09-11] MEDS: METOCLOPRAMIDE 10 MG INJ IV ×4 (00:52→18:26)
[2018-09-11] MEDS: Insulin NOVOLOG SS MILD Algorithm (NPO/TPN/ENTERAL FEEDS) SC ×5 (00:53→18:35)
[2018-09-11] MEDS: LANSOPRAZOLE 30 MG CAP PEG ×2 (05:56→18:26)
[2018-09-11] MEDS: LEVOTHYROXINE 50 MCG TAB PO (05:56)
[2018-09-11 07:16] LABS: ADD MAN DIFF? NO
[2018-09-11 07:22] LABS: BASOPHILS % 0.2 % (0.0-2.0); EOSINOPHILS % 0.1 % (0.0-7.0); LYMPHOCYTES # 1.8 10^3/ul (0.8-2.9); LYMPHOCYTES % 16.2 % (15.0-51.0); MEAN CORPUSCULAR HEMOGLOBIN 28.4 pg (29.0-33.0); MEAN CORPUSCULAR VOLUME 88.7 fl (82.0-101.0); MEAN PLATELET VOLUME 9.2 fl (7.4-10.4); MONOCYTE # 0.6 10^3/ul (0.3-0.9); MONOCYTES % 5.1 % (0.0-11.0); NEUTROPHIL # 8.5 10^3/ul (1.6-7.5); PLATELET COUNT 244 10^3/UL (140-415); RED BLOOD COUNT 2.82 10^6/ul (4.70-6.10); RED CELL DISTRIBUTION WIDTH 14.5 % (11.5-14.5)
[2018-09-11 07:22] LABS: WHITE BLOOD COUNT 10.9 10^3/ul (4.8-10.8)
[2018-09-11 07:48] LABS: MAGNESIUM 1.6 mg/dl (1.7-2.5)
[2018-09-11 07:49] LABS: ANION GAP 5 (5-13); BLOOD UREA NITROGEN 12 mg/dl (7-20); CALCIUM 8.3 mg/dl (8.4-10.2); CARBON DIOXIDE 27 mmol/L (21-31); CHLORIDE 106 mmol/L (97-110); CREATININE 0.55 mg/dl (0.61-1.24); GLUCOSE 113 mg/dl (70-220); POTASSIUM 3.8 mmol/L (3.5-5.1); SODIUM 138 mmol/L (135-144)
[2018-09-11] MEDS: SUCRALFATE (100 MG/ML) 10ML CUP PO ×4 (08:39→21:12)
[2018-09-11] MEDS: FLUCONAZOLE 200 MG TAB PO (08:39)
[2018-09-11] MEDS: LEVETIRACETAM 250 MG TAB PO (08:39)
[2018-09-11] MEDS: DUTASTERIDE 0.5 MG CAP PO (08:40)
[2018-09-11] MEDS: DAKINS 0.0125%(1/40) 473 ML SOLUTION TP (08:41)
[2018-09-11] MEDS: COLLAGENASE 5 GM (UD JAR) TOP (08:41)
[2018-09-11] MEDS: INSULIN GLARGINE [LANTus] (100 UNITS/ML) SYG SC (08:53)
[2018-09-11] MEDS: HEPARIN 5,000 UNIT/1 ML VIAL SC ×2 (08:54→21:14)
[2018-09-11] MEDS: SOD FERRIC GLUC COMPLX 125 MG in SOD CHLORIDE 0.9% 100 ML IVPB (15:50)
[2018-09-11] MEDS: TERAZOSIN 5 MG CAP PO (21:13)
[2018-09-12] MEDS: INSULIN ASPART [NOVOLOG] 3 ML PEN SC ×3 (06:00→12:44)
[2018-09-12 06:02] LABS: ADD MAN DIFF? NO
[2018-09-12 06:19] LABS: WHITE BLOOD COUNT 6.3 10^3/ul (4.8-10.8)
[2018-09-12 06:19] LABS: BASOPHILS % 0.2 % (0.0-2.0); EOSINOPHILS % 0.6 % (0.0-7.0); HEMATOCRIT 25.8 % (42.0-52.0); HEMOGLOBIN 8.1 g/dl (14.0-18.0); LYMPHOCYTES # 1.7 10^3/ul (0.8-2.9); LYMPHOCYTES % 26.3 % (15.0-51.0); MEAN CORPUSCULAR HGB CONC 31.4 g/dl (32.0-37.0); MEAN CORPUSCULAR VOLUME 89.3 fl (82.0-101.0); MEAN PLATELET VOLUME 9.2 fl (7.4-10.4); MONOCYTE # 0.5 10^3/ul (0.3-0.9); MONOCYTES % 8.5 % (0.0-11.0); NEUTROPHIL # 4.1 10^3/ul (1.6-7.5); NEUTROPHILS % 63.9 % (39.0-77.0); PLATELET COUNT 242 10^3/UL (140-415); RED BLOOD COUNT 2.89 10^6/ul (4.70-6.10); RED CELL DISTRIBUTION WIDTH 14.3 % (11.5-14.5)
[2018-09-12] MEDS: LANSOPRAZOLE 30 MG CAP PEG (06:21)
[2018-09-12] MEDS: METOCLOPRAMIDE 10 MG INJ IV ×2 (06:21)
[2018-09-12] MEDS: FLUCONAZOLE 200 MG TAB PO (08:52)
[2018-09-12] MEDS: SUCRALFATE (100 MG/ML) 10ML CUP PO ×2 (08:52→12:43)
[2018-09-12] MEDS: DUTASTERIDE 0.5 MG CAP PO (08:52)
[2018-09-12] MEDS: LEVETIRACETAM 250 MG TAB PO (08:52)
[2018-09-12] MEDS: COLLAGENASE 5 GM (UD JAR) TOP (08:52)
[2018-09-12] MEDS: DAKINS 0.0125%(1/40) 473 ML SOLUTION TP (08:53)
[2018-09-12] MEDS: LEVOTHYROXINE 50 MCG TAB PO (08:53)
[2018-09-12] MEDS: HEPARIN 5,000 UNIT/1 ML VIAL SC (08:55)
[2018-09-12] MEDS: INSULIN GLARGINE [LANTus] (100 UNITS/ML) SYG SC (08:55)
[2018-09-12] MEDS: SOD FERRIC GLUC COMPLX 125 MG in SOD CHLORIDE 0.9% 100 ML IVPB (12:43)
[2018-09-12] MEDS: LIDOCAINE 2% (SDV) 5 ML INJ (12:51)
[2018-09-12] MEDS: CEFAZOLIN 2 GM/50 ML (PMX) 50 ML IVPB (12:51)
[2018-09-12] MEDS: CEFAZOLIN 1 GM/50 ML (PMX) 50 ML IVPB (12:52)
[2018-09-12] MEDS: PROPOFOL 20 ML (12:52)
== END 2018-09-12 13:35 | DRG 391 ==
LOC: E/R 15:34 → 5EC 21:18
PROC: 0D758ZZ Dilation of Esophagus, Via Natural or Artificial Opening Endoscopic (ICD-10-PCS; principal; 2018-09-07 16:10)
PROC: 0G9H3ZX Drainage of Right Thyroid Gland Lobe, Percutaneous Approach, Diagnostic (ICD-10-PCS; 2018-09-07 16:10)
PROC: 0DH63UZ Insertion of Feeding Device into Stomach, Percutaneous Approach (ICD-10-PCS; 2018-09-07 16:10)
PROC: 0D758ZZ Dilation of Esophagus, Via Natural or Artificial Opening Endoscopic (ICD-10-PCS; 2018-09-07 16:10)
DX: K22.2 Esophageal obstruction (principal); E43 Unspecified severe protein-calorie malnutrition; B37.81 Candidal esophagitis; Z68.1 Body mass index [BMI] 19.9 or less, adult; K21.0 Gastro-esophageal reflux disease with esophagitis; K44.9 Diaphragmatic hernia without obstruction or gangrene; E03.9 Hypothyroidism, unspecified; E78.5 Hyperlipidemia, unspecified; N40.0 Benign prostatic hyperplasia without lower urinary tract symptoms; R13.10 Dysphagia, unspecified; G40.909 Epilepsy, unspecified, not intractable, without status epilepticus; F17.200 Nicotine dependence, unspecified, uncomplicated; L89.612 Pressure ulcer of right heel, stage 2; I70.201 Unspecified atherosclerosis of native arteries of extremities, right leg; E11.42 Type 2 diabetes mellitus with diabetic polyneuropathy; E11.51 Type 2 diabetes mellitus with diabetic peripheral angiopathy without gangrene; E04.1 Nontoxic single thyroid nodule; D64.9 Anemia, unspecified; M48.02 Spinal stenosis, cervical region; E86.0 Dehydration; Z89.411 Acquired absence of right great toe
CPT/HCPCS: 36415; 70490; 73630; 76536; 76942; 80048; 80053; 82962; 83036; 83690; 83735; 84100; 84443; 85025; 85610; 85730; 87081; 88104; 88313; 92526; 92610; 93922; 99285-25